=== PATIENT | male | born 1940 | race Caucasian/White ===

== ENCOUNTER 2018-08-31 19:41 | Emergency (ER) | payer MEDICARE, OTHER ==
[~2018-08-31] VITALS: Ht 172.7 cm; Wt 108.9 kg
--- OUTSIDE RECORDS SUMMARY | ~2018-08-31 | XMS | Clinical Summary ---
Demographics + + + | Address | [address] | | | [place] [address] | + + + | Home Phone | | + + + | Preferred Language | Unknown | + + + | Marital Status | Single | + + + | Orthodox Affiliation | Unknown | + + + | Race | Unknown | + + + | Ethnic Group | Unknown | + + + Author + + + | Author | [facility] | | | and [place] | + + + | Organization | [facility] | | | and [place] | + + + | Address | Unknown | + + + | Phone | Unavailable | + + + Support + + + + + | Name | Relationship | Address | Phone | + + + + + | Regan iGbbs | ECON | NA | | | | | [place] | | + + + + + | Malcolm Gibbs | ECON | [place] | | | | | [address] | | + + + + + Care Team Providers + +------+ + | Care Dairy Specialist Name | Role | Phone | + [...] | [employer] | MODA | [id number] | 05/23/19 | [phone] | | Medica | | MEDICAID HMO [...] Self | [birth year] | [address] | | | al/Fam | | 1941 | [phone] | [place] [address] | | | mateo | | | 5 ([place]) | | + +--------+ +--------+ + + Advance Directives Patient has advance care planning documents on file. For more information, please contact:[facility] [place] [address]
--- OUTSIDE RECORDS SUMMARY | ~2018-08-31 | XMS | Clinical Summary ---
Demographics + + + | Address | [address] | | | [place] [address] | + + + | Home Phone | | + + + | Preferred Language | Unknown | + + + | Marital Status | Single | + + + | Latter-Day Affiliation | Unknown | + + + | Race | Unknown | + + + | Ethnic Group | Unknown | + + + Author + + + | Author | [facility] | | | and [place] | + + + | Organization | [facility] | | | and [...] [place] | | | | | [address] | | + + + + + Care Team Providers + +------+ + | Care Youth Development Specialist Name | Role | Phone | [...] | [employer] | MODA | [id number] | 05/23/19 | [phone] | | Medica | | MEDICAID HMO [...] al/Fam | | 1941 | [phone] | [place] [address] | | | mateo | | | 5 ([place]) | | + +--------+ +--------+ + + Advance Directives Patient has advance care planning documents on file. For more information, please contact:[facility] [place] [address]
--- OUTSIDE RECORDS SUMMARY | ~2018-08-31 | XMS | Clinical Summary ---
Demographics + + + | Address | [address] | | | [place] [address] | + + + | Home Phone | | + + + | Preferred Language | Unknown | + + + | Marital Status | | + + + | Anabaptism Affiliation | Unknown | + + + | Race | Unknown | + + + | Ethnic Group | Unknown | + + + Author + + + | Author | [facility] [employer] | + + + | Organization | [facility] | + + + | Address | Unknown | + + + | Phone | Unavailable | + + + Support + + +---------+ + | Name | Relationship | Address | Phone | + + +---------+ + | Malcolm Gibbs | ECON | Unknown | | + + +---------+ + Care Team Providers + +------+ + | Care Motel Manager Name | Role | Phone | + [...] +------+-------+ + | MEDICARE | MEDICA | [id number] | | | [address] | | | RE | | | | [place] [phone] | | | IP-OP | | | | | + +--------+ +------+-------+ + | MEDICAID | [place] | [id number] | | | [address] | | | N | | | | [place] | | | [place] | | | | [address] | | | DESK DIRECTOR | | | | | + +--------+ [...] | | | | | | | [phone] | + +--------+ +--------+ + +
--- OUTSIDE RECORDS SUMMARY | ~2018-08-31 | XMS | Clinical Summary ---
Demographics + + + | Address | [address] | | | [place] [address] | + + + | Home Phone | | + + + | Preferred Language | Unknown | + + + | Marital Status | | + + + | Presybeterian Affiliation | Unknown | + + + | Race | Unknown | + + + | Ethnic Group | Unknown | + + + Author + + + | Author | [facility] | + + + | Organization | [facility] | + + + | Address | Unknown | + + + | Phone | Unavailable | + + + Support + + +---------+ + | Name | Relationship | Address | Phone | + + +---------+ + | Malcolm Gibbs | ECON | Unknown | | + + +---------+ + Care Team Providers + +------+ + | Care Tetryl Screen Operator Name | Role | Phone | [...] +------+-------+ + | MEDICARE | MEDICA | [id number] | | | [address] | | | RE | | | | [place] [phone] | | | IP-OP | | | | | + +--------+ +------+-------+ + | MEDICAID | [place] | [id number] | | | [address] | | | N | | | | [place] | | | [place] | | | | [phone] | | | SCREW MACHINE SET UP OPERATOR TOOL | | | | | + +--------+ [...] | | | | | | | [phone] | + +--------+ +--------+ + +
[~2018-08-31 19:41] MED LIST: ACETAMINOPHEN500 MG PO; ACTICLATE150 MG PO; ADVAIR 100-501 EACH INH; ALLOPURINOL300 MG PO; AMBIEN10 MG PO; ATORVASTATIN CA40 MG PO; BP MED; COUMADIN; COUMADIN PO; COUMADIN2 MG PO; COUMADIN3 MG PO; COUMADIN4 MG PO; DOXYCYCLINE HY100 MG PO; FLOMAX0.4 MG PO; FLUTICASONE PRO16 GM NS; GOUT MED; GUAIATUSSIN AC10 ML PO; HYDROCODON-ACE1 EA10 PO; INHAILER; KLOR-CON 1010 MEQ PO; LISINOPRIL10 MG PO; LISINOPRIL2.5 MG PO; LOPRESSOR50 MG PO; METOPROLOL TART25 MG PO; MILK OF MA400 MG/5 M PO; NITROSTAT0.4 MG SL; NORCO 10-325 T1 EACH PO; NORCO 5-325 TA1 EACH PO; ONCE DAILY1 EACH PO; PERCOCET 7.5-31 EACH PO; POLYETHYLENE GL17 GM PO; POTASSIUM CHLO10 ME1 PO; PROAIR HFA8.5 GM INH; SENOKOT8.6 MG PO; SYMBICORT 16010.2 GM INH; TAMSULOSIN HCL0.4 MG PO; TRIAMTERENE-HC1 EAC1 PO; TRIAMTERENE-HC1 EAC3 PO; ULTRAM50 MG PO; WARFARIN SODIU2.5 MG PO; ZOLPIDEM TARTRA10 MG PO
[2018-08-31] MEDS ORDERED: CEPHALEXIN500 MG PO (20:38)
== END 2018-08-31 20:53 | disposition home or self-care (01) ==
LOC: ED 19:41
DX: S80.11XA Contusion of right lower leg, initial encounter (principal); I10 Essential (primary) hypertension; J44.9 Chronic obstructive pulmonary disease, unspecified; I11.9 Hypertensive heart disease without heart failure; I48.91 Unspecified atrial fibrillation; E78.5 Hyperlipidemia, unspecified; N28.9 Disorder of kidney and ureter, unspecified; Z87.891 Personal history of nicotine dependence; Z95.5 Presence of coronary angioplasty implant and graft; Z90.49 Acquired absence of other specified parts of digestive tract; Z90.89 Acquired absence of other organs; Z79.899 Other long term (current) drug therapy; Z79.01 Long term (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; W10.9XXA Fall (on) (from) unspecified stairs and steps, initial encounter; Z23 Encounter for immunization
CPT/HCPCS: 90471; 90715; 99283

== ENCOUNTER 2018-09-03 10:52 | Inpatient (IN) | payer MEDICARE, OTHER ==
[~2018-09-03] VITALS: Ht 172.7 cm; Wt 104.3 kg
--- OUTSIDE RECORDS SUMMARY | ~2018-09-03 | XMS | Clinical Summary ---
Demographics + + + | Address | [address] | | | [place] [address] | + + + | Home Phone | | + + + | Preferred Language | Unknown | + + + | Marital Status | Single | + + + | Scientology Affiliation | Unknown | + + + | Race | Unknown | + + + | Ethnic Group | Unknown | + + + Author + + + | Author | [facility] | | | and [place] | + + + | Organization | [facility] | | | and [place] | + + + | Address | Unknown | + + + | Phone | Unavailable | + + + Support + + + + + | Name | Relationship | Address | Phone | + + + + + | Regan Gibbs | ECON | NA | | | | | [place] | | + + + + + | Malcolm Gibbs | ECON | [place] | | | | | [address] | | + + + + + Care Team Providers + +------+ + | Care Operations Examiner Name | Role | Phone | + +------+ + | Burton Alvarez | PP | | | MD | | | + +------+ + Allergies No Known Allergies Medications + + + +---------+------+------+-------+ | Medication | Sig | Dispensed | Refills | Star | End | Statu | | | | | | t | Date | s | | | | | | Date | | | + + + +---------+------+------+-------+ | lisinopril | Take 10 mg by mouth | | 0 | | | Activ | | (PRINIVIL, ZESTRIL) | Daily. | | | | | e | | 10 mg tablet | | | | | | | + + + +---------+------+------+-------+ | | Take 1 tablet by | | 0 | | | Activ | | HYDROcodone-acetamin | mouth every 6 hours | | | | | e | | ophen (NORCO) 5-325 | as needed. | | | | | | | mg per tablet | | | | | | | + + + +---------+------+------+-------+ | zolpidem (AMBIEN) | Take 10 mg by mouth | | 0 | | | Activ | | 10 mg tablet | nightly as needed. | | | | | e | + + + +---------+------+------+-------+ | warfarin | Take 4 mg by mouth | | 0 | | | Activ | | (COUMADIN) 4 MG | Daily. | | | | | e | | tablet | | | | | | | + + + +---------+------+------+-------+ | metoprolol | Take 50 mg by mouth | | 0 | | | Activ | | succinate | 2 times daily. | | | | | e | | (TOPROL-XL) 50 mg 24 | | | | | | | | hr tablet | | | | | | | + + + +---------+------+------+-------+ | allopurinol | Take 300 mg by mouth | | 0 | | | Activ | | (ZYLOPRIM) 300 mg | Daily. | | | | | e | | tablet | | | | | | | + + + +---------+------+------+-------+ Active Problems + + + | Problem | Noted Date | + + + | Hypertension | | + + + | Arthritis | | + + + | Heart attack | | + + + | History of angina | | + + + | Arrhythmia | | + + + Family History + + +------+ + | Medical History | Relation | Name | Comments | + + +------+ + | Arthritis | Brother | | | + + +------+ + | Cancer | Brother | | | + + +------+ + | Arthritis | Father | | | + + +------+ + | Cancer | Father | | | + + +------+ + | Heart disease | Father | | | + + +------+ + | Hypertension | Father | | | + + +------+ + | Arthritis | Mother | | | + + +------+ + | Kidney disease | Mother | | | + + +------+ + | Migraines | Mother | | | + + +------+ + | Seizures | Mother | | | + + +------+ + | Arthritis | Sister | | | + + +------+ + + +------+--------+ + | Relation | Name | Status | Comments | + +------+--------+ + | Brother | | | | + +------+--------+ + | Father | | | | + +------+--------+ + | Mother | | | | + +------+--------+ + | Sister | | | | + +------+--------+ + Social History + +-------+ +--------+------+ | Tobacco Use | Types | Packs/Day | Years | Date | | | | | Used | | + +-------+ +--------+------+ | Never Smoker | | | | | + +-------+ +--------+------+ + +------+---+---+ | Smokeless Tobacco: | Chew | | | | Current User | | | | + +------+---+---+ + + +---------+ + | Alcohol Use | Drinks/We | oz/Week | Comments | | | ek | | | + + +---------+ + | Yes | | | Rarely | + + +---------+ + + + + | Sex Assigned at | Date Recorded | | | | + + + | Not on file | | + + + + + + + | Job Start Date | Occupation | Industry | + + + + | Not on file | Not on file | Not on file | + + + + + + + + | Travel History | Travel Start | Travel End | + + + + + + | No recent travel history available. | + + Last Filed Vital Signs + + + + | Vital Sign | Reading | Time Taken | + + + + | Blood Pressure | 131/75 | 05/11/2013 1029 PST | + + + + | Pulse | 70 | 05/11/2013 1029 PST | + + + + | Temperature | - | - | + + + + | Respiratory Rate | 18 | 05/11/20139 PST | + + + + | Oxygen Saturation | - | - | + + + + | Inhaled Oxygen | - | - | | Concentration | | | + + + + | Weight | 100.2 kg (221 lb) | 05/11/20131028 PST | + + + + | Height | 174 cm (5' 8.5") | 05/11/20131028 PST | + + + + | Body Mass Index | 33.11 | 05/11/20139 PST | + + + + Plan of Treatment + + + + + | Health Maintenance | Due Date | Last Done | Comments | + + + + + | Vaccine: | | | | | Dtap/Tdap/Td (1 - | 9 | | | | Tdap) | | | | + + + + + | Vaccine: Zoster (1 | | | | | of 2) | 0 | | | + + + + + | Vaccine: | | | | | Pneumococcal 65+ | 5 | | | | Low/Medium Risk (1 | | | | | of 2 - PCV13) | | | | + + + + + | Vaccine: Influenza | | | | | (Season Ended) | 9 | | | + + + + + Results Not on filefrom Last 3 Months Insurance + +--------+ +--------+ +---------+--------+ | Payer | Benefi | Subscriber | Effect | Phone | Address | Type | | | t Plan | ID | abby | | | | | | / | | Dates | | | | | | Group | | | | | | + +--------+ +--------+ +---------+--------+ | [employer]AN | MODA | [id number] | 05/23/19 | [phone] | | Medica | | MEDICAID HMO | HEALTH | | 13-Pre | 1 | | id | | | [place] | | sent | | | | | [place] | | | | | | + +--------+ +--------+ +---------+--------+ + +--------+ +--------+ + + | Guarantor Name | Accoun | Relation to | Date | Phone | Billing Address | | | t Type | Patient | of | | | | | | | | | | + +--------+ +--------+ + + | Tiffany Gibbs | Person | Self [birth year] | [address] | | | al/Fam | | 1941 | [phone] | [place] [address] | | | mateo | | | 5 ([place]) | | + +--------+ +--------+ + + Advance Directives Patient has advance care planning documents on file. For more information, please contact:[facility] and [facility] [place] [address]
--- OUTSIDE RECORDS SUMMARY | ~2018-09-03 | XMS | Clinical Summary ---
Demographics + + + | Address | [address] | | | [place] [address] | + + + | Home Phone | | + + + | Preferred Language | Unknown | + + + | Marital Status | Single | + + + | Scientologist Affiliation | Unknown | + + + | Race | Unknown | + + + | Ethnic Group | Unknown | + + + Author + + + | Author | [facility] | | | and [place] | + + + | Organization | [facility] | | | and [...] [place] | | | | | [address] | | + + + + + Care Team Providers + +------+ + | Care Classified Advertising Supervisor Name | Role | Phone | + [...] | [employer] | MODA | [id number] | 05/23/19 | [phone] | | Medica | | MEDICAID HMO [...] Self | [birth year] | [address] | | | al/Fam | | 1941 | [phone] | [place] [address] | | | mateo | | | 5 ([place]) | | + +--------+ +--------+ + + Advance Directives Patient has advance care planning documents on file. For more information, please contact:[facility] and [facility] [place] [address]
--- OUTSIDE RECORDS SUMMARY | ~2018-09-03 | XMS | Clinical Summary ---
Demographics + + + | Address | [address] | | | [place] [address] | + + + | Home Phone | | + + + | Preferred Language | Unknown | + + + | Marital Status | | + + + | Zoroastrianism Affiliation | Unknown | + + + | Race | Unknown | + + + | Ethnic Group | Unknown | + + + Author + + + | Author | [facility] | + + + | Organization | [facility] | + + + | Address | Unknown | + + + | Phone | Unavailable | + + + Support + + +---------+ + | Name | Relationship | Address | Phone | + + +---------+ + | Malcolm Gibbs | ECON | Unknown | | + + +---------+ + Care Team Providers + +------+ + | Care Stock Patcher Name | Role | Phone | + [...] +------+-------+ + | MEDICARE | MEDICA | [id number] | | | [address] | | | RE | | | | [place] [phone] | | | IP-OP | | | | | + +--------+ +------+-------+ + | MEDICAID | [place] | [id number] | | | [address] | | | N | | | | [place] | | | [place] | | | | [address] | | | GRADER PATROL | | | | | + +--------+ [...] | | | | | | | [address] | + +--------+ +--------+ + +
--- OUTSIDE RECORDS SUMMARY | ~2018-09-03 | XMS | Clinical Summary ---
Demographics + + + | Address | [address] | | | [place] [address] | + + + | Home Phone | | + + + | Preferred Language | Unknown | + + + | Marital Status | | + + + | Pentecostalism Affiliation | Unknown | + + + | Race | Unknown | + + + | Ethnic Group | Unknown | + + + Author + + + | Author | [employer] | + + + | Organization | [facility] | + + + | Address | Unknown | + + + | Phone | Unavailable | + + + Support + + +---------+ + | Name | Relationship | Address | Phone | + + +---------+ + | Malcolm Gibbs | ECON | Unknown | | + + +---------+ + Care Team Providers + +------+ + | Care Psychometrician Name | Role | Phone | + [...] +------+-------+ + | MEDICARE | MEDICA | [id number] | | | [address] | | | RE | | | | [place] [phone] | | | IP-OP | | | | | + +--------+ +------+-------+ + | MEDICAID | [place] | [id number] | | | [address] | | | N | | | | [place] | | | [place] | | | | [address] | | | [employer] | | | | | + +--------+ [...] | | | | | | | [address] | + +--------+ +--------+ + +
--- OUTSIDE RECORDS SUMMARY | ~2018-09-03 | XMS | Clinical Summary ---
Demographics + + + | Address | [address] | | | [place] [address] | + + + | Home Phone [...] + + + | Author | [facility] | | | and [place] | + + + | Organization | [facility] | | [...] [place] | | | | | [address] | | + + + + + Care Team Providers + +------+ + | Care Air Cargo Agent Name | Role | Phone | + [...] | [employer] | MODA | [id number] | 05/23/19 | [phone] | | Medica | | MEDICAID HMO [...] Self | [birth year] | [address] | | | al/Fam | | 1941 | [phone] | [place] [address] | | | mateo | | | 5 ([place]) | | + +--------+ +--------+ + + Advance Directives Patient has advance care planning documents on file. For more information, please contact:[facility] and [facility] [place] [address]
--- OUTSIDE RECORDS SUMMARY | ~2018-09-03 | XMS | Clinical Summary ---
Demographics + + + | Address | [address] | | | [place] [address] | + + + | Home Phone | | + + + | Preferred Language | Unknown | + + + | Marital Status | | + + + | Catholic Affiliation | Unknown | + + + | Race | Unknown | + + + | Ethnic Group | Unknown | + + + Author + + + | Author | [employer] [employer] | + + + | Organization | [facility] | + + + | Address | Unknown | + + + | Phone | Unavailable | + + + Support + + +---------+ + | Name | Relationship | Address | Phone | + + +---------+ + | Malcolm Gibbs | ECON | Unknown | | + + +---------+ + Care Team Providers + +------+ + | Care Clothing Manager Name | Role | Phone | [...] +------+-------+ + | MEDICARE | MEDICA | [id number] | | | [address] | | | RE | | | | [place] [phone] | | | IP-OP | | | | | + +--------+ +------+-------+ + | MEDICAID | [place] | [id number] | | | [address] | | | N | | | | [place] | | | [place] | | | | [phone] | | | SUPERVISOR CONTINUOUS W[employer] | | | | | + +--------+ [...] | | | | | | | [address] | + +--------+ +--------+ + +
[~2018-09-03 10:52] MED LIST changes: +CEPHALEXIN500 MG PO
--- OUTSIDE RECORDS SUMMARY | 2018-09-03 10:54 | XMS ---
PreManage Notification: KORIN DESHPANDE Security Recordist Chief Events No recent Security Events currently on file CRITERIA MET - [facility] - 2 Visits in 30 Days CARE PROVIDERS Burton Alvarez MD PHONE: Unknown Other Current PHONE: Unknown Joce has no Care Guidelines for this patient. [facility] VISIT COUNT (12 MO.) [address] [place] [address] TOTAL 2 NOTE: Visits indicate total known visits. ED/UCC VISIT TRACKING (12 MO.) 09/03/2018 10:52 [facility] [place] TYPE: Emergency COMPLAINT: - LEG PAIN/SWELLING, POSS INFECTION 08/31/2018 19:42 [facility] [place] TYPE: Emergency COMPLAINT: - FALL INPATIENT VISIT TRACKING (12 MO.) No inpatient visits to display in this time frame [email or web address]
--- NOTE | 2018-09-03 16:00 | NUR ---
PT ARRIVED TO FLOOR VIA STRETCHER. REPORTS PAIN 10/10 IN RIGHT LOWER LEG. MORPHINE PO ADMINISTERED. ORIENTED TO ROOM. PT IS AAO. CALL LIGHT IN REACH. DINNER ORDERED. WATER PROVIDED. ICE APPLIEDTO RLE. RLE ELEVATED ON PILLOW.
--- NOTE | 2018-09-03 19:06 | NUR ---
PT REPORTING PAIN 8/10 IN RLE BURNING. 2MG IV MORPHINE ADMINSITERED.
--- NOTE | 2018-09-03 19:30 | NUR ---
RECIEVED BEDSIDE REPORT FROM DAYA FRIEDMAN, PATIENT RESTING AWAKE IN BED. CPOX, WNL. PATIENT STATES "PAIN IS DOING ALRIGHT RIGHT NOW", STATING PAIN IS A "7/10". CALL LIGHT WITHIN REACH. WHITE BOARD UPDATED. NO MORE NEEDS AT THIS TIME.
--- NOTE | 2018-09-03 21:30 | NUR ---
ASSESSMENT COMPLETE, REFER TO ASSESSMENT. PATIENT REPORTS "8/10" PAIN IN RLE, PATIENT REPORTS RLE HEMATOMA FEELS LIKE "FIRE" WITH MOVEMENT, PRN PAIN MEDICATION ADMINISTERED PER MAR ORDER. PATIENT DENIES CHEST PAIN, SHORTNESS OF BREATH OR DIFFICULTY BREATHING. PATIENT EXHIBITED SLIGHT PURSED LIP BREATHING, PT IS ABLE TO TALK IN CLEAR AND CONCISE SENTENCES, NO SIGNS OF RESPIRATORY DISTRESS. IV ASSESSED, WNL. HEMATOMA ON RLE APPEARS, RED AND SWOLLEN, NO SIGNS OF DRAINAGE, WARM TO TOUCH, CAPILLARY REFILL LESS THAN 2 SECONDS, ICE PACK IN PLACE PER ORDER. IV ASSESSED, WNL. RLE ELEVATED ON PILLOW. CALL LIGHT WITHIN REACH. NO MORE NEEDS AT THIS TIME.
--- NOTE | 2018-09-03 22:32 | NUR ---
V/S AND I&O DONE AND CHARTED.
--- NOTE | 2018-09-03 23:38 | NUR ---
MADE HOT PACK WITH 2 PILLOW CASES FOR R LOWER LEG PER PRIMARY RN.
--- NOTE | 2018-09-03 23:52 | NUR ---
PAPER SALES MANAGER BLADDER SCAN PATIENT PATIENT REPORTS NOT HAVING SENSATION TO VOID AND HAS NOT PRODUCED URINE THIS SHIFT. BLADDER SCAN SHOWED 425 ML OF URINE. THIS RN ELEVATED HEAD OF BED AND PROVIDED PATIENT EDUCATION ABOUT CONCERN OF PATIENT NOT PRODUCING URINE THIS SHIFT. PATIENT WOULD LIKE SOME TIME TO ATTEMPT TO URINATE. CALL LIGHT WITHIN REACH. NO MORE NEEDS AT THIS TIME. URINAL AT BEDSIDE.
--- NOTE | 2018-09-03 23:54 | NUR ---
DID SCAN THE BLADDER, SHOWED 425 ML.
--- NOTE | 2018-09-04 00:38 | NUR ---
PATIENT WAS ABLE TO VOID. PATIENT RATES PAIN AT A 3/10. PATIENT GIVEN PRN PAIN MEDICATION PER ORDER. PATIENT REMAINS RESTING IN BED. PATIENTD WATER REFILLED. PATIENT DENIES ANY FURTHER NEEDS AT THIS TIME. CALL LIGHT IN REACH.
--- NOTE | 2018-09-04 00:50 | NUR ---
PATIENT WAS ABLE TO VOID. PATIENT RATES PAIN AT A 7/10. PATIENT GIVEN PRN PAIN MEDICATION PER ORDER. PATIENT REMAINS RESTING IN BED. PATIENTD WATER REFILLED. PATIENT DENIES ANY FURTHER NEEDS AT THIS TIME. CALL LIGHT IN REACH.
--- NOTE | 2018-09-04 02:50 | NUR ---
ASSESSMENT COMPLETE, REFER TO ASSESSMENT. PATIENT REPORTS "8/10" "BURNING" AND "THROBBING" PAIN IN RLE, PRN PAIN MEDICATION ADMINISTERED PER MAR ORDER. CAPILLARY REFILL LESS THAN 2 SECONDS. EXTREMITIES WARM TO TOUCH. NO NEW DRAINAGE NOTED ON HEMATOMA. ICE APPLIED PER ORDER. RLE ELEVATED ON PILLOW. PATIENT DENIES SHORTNESS OF BREATH, DIFFICULTY BREATHING, OR CHEST PAIN. THIS RN PROVIDED PATIENT WITH URINAL AND ENCOURAGED PATIENT TO USE URINAL IF PATIENT HAS THE URGE TO URINATE. NO SIGNS OF DISTRESS, CPOX WNL. PATIENT ABLE TO TALK IN CLEAR AND CONCISE SENTENCES. CALL LIGHT WITHIN REACH. NO MORE NEEDS AT THIS TIME.
--- NOTE | 2018-09-04 03:45 | NUR ---
PRN PAIN MEDICATION ADMINISTERED PER MAR ORDER FOR REPORTED "8/10" PAIN IN RLE. PROVIDED PATIENT WITH URINAL AND ENCOURAGED PATIENT TO USE URINAL IF PATIENT HAS URGE TO USE URINAL.
--- NOTE | 2018-09-04 04:57 | NUR ---
ROUNDED ON PATIENT TO EMPTY PATIENT'S URINAL. 60ML OF CONCENTRATED URINE EMPTIED FROM URINAL. IT WAS NOTED THAT PATIENT HAD CHEWING TOBACCO IN GOWN POCKET AND IN MOUTH, EDUCATION PROVIDED TO PATIENT ABOUT HOSPITAL POLICY ABOUT TOBACCO ON HOSPITAL GROUNDS, PATIENT PROVIDED PERMISSION TO PLACE CAN OF CHEWING TOBACCO AND CHEW FROM MOUTH IN GARBAGE. CALL LIGHT WITHIN REACH. NO MORE NEEDS AT THIS TIME.
--- NOTE | 2018-09-04 06:44 | NUR ---
NOTIFED DR. JORDAN OF PATIENT'S LOW URINE OUTPUT. NO NEW ORDERS.
--- NOTE | 2018-09-04 07:13 | NUR ---
RECIEVED BEDSIDE REPORT FROM IDALIA FREGOSO. PT HAS RIGHT LEG ELEVATED ON PILLOW WITH ICE PACK TO LATERAL LOWER LEG. CALL BUTTON IN REACH.
--- NOTE | 2018-09-04 07:51 | NUR ---
PATIENT IN BED RESTING. WARM WASHCLOTH GIVEN. CALL LIGHT IN REACH. NO FURTHER NEEDS AT THIS TIME.
--- NOTE | 2018-09-04 07:58 | NUR ---
PT C/O 8/10 PAIN TO HIS RIGHT LOWER LEG. GAVE MORPHINE SULFATE 15 MG PO PRN. PT SITTING UPRIGHT IN BED, EATING BREAKFAST AT THIS TIME.
--- NOTE | 2018-09-04 08:15 | NUR ---
PATIENT ASLEEP. SPOKE WITH EMERSON (FAMILY MEMBER) WHO STATES PATIENT LIVES ALONE AND USUALLY IS ABLE TO TAKE CARE OF HIMSELF. HE LIVES IN APARTMENT AT [facility], STILL DRIVES. SHE STATES IF HE NEEDS HELP AFTER DISCHARGE THE FAMILY WILL BE ABLE TO DO THIS, OR HE CAN COME AND STAY WITH ONE OF THEM IF NEEDED. QUESTIONS ANSWERED. WILL SEE PATIENT LATER WHEN AWAKE.
--- NOTE | 2018-09-04 08:26 | NUR ---
PATIENT HAD EMESIS, RN NOTIFIED. SHEETS CHANGED. CALL LIGHT IN REACH. NO FURTHER NEEDS AT THIS TIME.
--- NOTE | 2018-09-04 08:30 | NUR ---
PT ATE A SMALL AMOUNT OF BREAKFAST THEN HAS AN EPISODE OF EMESIS. GAVE ZOFRAN 4 MG IV PRN.
--- NOTE | 2018-09-04 09:19 | NUR ---
PATIENT IN BED RESTING WITH EYES CLOSED. FAMILY IN ROOM. CALL LIGHT IN REACH. NO FURTHER NEEDS AT THIS TIME.
--- NOTE | 2018-09-04 10:09 | NUR ---
PATIENT HAS NO VOID. PATIENT TRIED TO VOID BUT COULDN'T, RN NOTIFIED. WILL CHECK BACK IN IN 30 MINS.
--- NOTE | 2018-09-04 10:23 | NUR ---
PT C/O RLE HAVING INCREASED PAIN, 01/30, GAVE MORPHINE 4 MG IV PRN.
--- NOTE | 2018-09-04 10:51 | NUR ---
NOTIFIED DR. JORDAN THAT PT HAD NAUSEA AND EMESIS THIS AM AFTER RECIEVING PO MORPHINE, AND ALSO LATER THIS MORNING, AFTER HAVING IV MORPHINE. DR. JORDAN STATED THAT SHE WOULD PLACE ORDERS. ALSO NOTIFIED DR. JORDAN THAT PT HAS NOT YET VOIDED URINE THUS FAR THIS SHIFT, AND BLADDER SCAN SHOWED 310. NO NEW ORDERS FOR THIS AT THIS TIME.
[2018-09-04] MEDS ORDERED: LEVOTHYROXINE50 MCG PO (11:05)
[2018-09-04] MEDS ORDERED: ALLOPURINOL300 MG PO (11:05)
[2018-09-04] MEDS ORDERED: SPIRIVA18 MCG INH (11:06)
[2018-09-04] MEDS ORDERED: ADVAIR 250-501 EACH INH (11:06)
[2018-09-04] MEDS ORDERED: FUROSEMIDE20 MG PO (11:07)
[2018-09-04] MEDS ORDERED: VENTOLIN HFA18 GM INH (11:07)
--- NOTE | 2018-09-04 11:44 | NUR ---
GAVE PT OXYCODONE 5 MG PO PRN AFTER HE ATE CRACKERS. PT HAD EMESIS OF 400 ML APROXIMATELY 2 MINUTES AFTER RECIEVING OXYCODONE. HAS IVF INFUSING AT ORDERED NOW.
--- NOTE | 2018-09-04 11:47 | NUR ---
NOTIFIED DR. JORDAN THAT PT WAS GIVEN OXYCODONE 5 MG PO PRN, AND THAT PT HAD 400 ML EMESIS FOLLOWING THIS. RECIEVED VORB TO GIVE ONE TIME DOSE OF ZOFRAN 4 MG IV IT IS TOO SOON TO GIVE ORDERED PRN ZOFRAN.
--- NOTE | 2018-09-04 14:12 | NUR ---
pt had emesis. gave 4mg i.v. zofran at this time.
--- NOTE | 2018-09-04 14:24 | NUR ---
PT CONTINUES TO VOMIT, NEW ORDERS FROM .
--- NOTE | 2018-09-04 14:37 | NUR ---
PT STOOD AT EDGE OF BED, VOIDED SMALL AMOUNT OF DARK MARTINEZ URINE IN URINAL. REQUIRED 2 PERSON ASSIST WITH FWW. PT THEN TRANSFERED FROM BED TO TOILET, IS SITTING UP ON TOILET ATTEMPTING TO VOID MORE URINE.
--- NOTE | 2018-09-04 15:13 | NUR ---
PATIENT UP TO BATHROOM AND BACK TO BED, 2PA FWW. CALL LIGHT IN REACH. NO FURTHER NEEDS AT THIS TIME.
--- NOTE | 2018-09-04 15:32 | NUR ---
SPOKE WITH PATIENT AND FAMILY IN ROOM. SON HOA IN ROOM. PATIENT STATES HE DOES LIVE AT [facility]. PATIENT FALLS TO SLEEP DURING CONVERSATION. SON STATES THE FAMILY WILL BE TAKING HIM HOME FOR A FEW DAYS UNTIL HE IS READY TO RETURN TO HIS OWN APARTMENT. HIS ONLY CONCERN IS THAT PATIENT BE ABLE TO GET AROUND WITH A WALKER TO GO TO THE BATHROOM, ETC. DISCUSSED THAT WILL CAN GET PT TO SEE HIM AND MAKE SURE HE IS UP AND ABLE TO MOVE. HE STATES PATIENT DOES NOT HAVE A WALKER. WILL DISCUSS WITH PHYSCIAN FOR POSSIBLE WALKER RX. QUESTIONS ANSWERED. WILL CONTINUE TO FOLLOW.
--- NOTE | 2018-09-04 17:30 | NUR ---
PT SITTING UP IN BED. GAVE OXYCODONE 5 MG PO PRN FOR C/O 810 RLE PAIN.
--- NOTE | 2018-09-04 18:40 | NUR ---
Medications reconciled using pharmacy records and patient family interview
--- NOTE | 2018-09-04 18:43 | NUR ---
PATIENT IN BED RESTING WITH EYES CLOSED. NO VOID, RN NOTIFIED. FRESH WATER GIVEN. CALL LIGHT IN REACH. NO FURTHER NEEDS AT THIS TIME.
--- NOTE | 2018-09-04 18:51 | NUR ---
PT REPORTED 8/10 RLE PAIN, GAVE OXYCODONE 5 MG PO PRN.
--- NOTE | 2018-09-04 19:34 | NUR ---
RECIEVED BEDSIDE REPORT FROM EVITA FRIEDMAN. PATIENT LAYING AWAKE IN BED. IV FLUIDS INFUSING PER MAR ORDER. CPOX, WNL. PATIENT REPORTS "8-01/30" PAIN IN RLE. RLE SHOWS NO NEW DRAINAGE AND ELEVATED ON PILLOW. CALL LIGHT WITHIN REACH. WHITE BOARD UPDATED. NO MORE NEEDS AT THIS TIME.
--- NOTE | 2018-09-04 20:30 | NUR ---
ASSESSMENT COMPLETE, REFER TO ASSESSMENT. MEDICATIONS ADMINISTERED PER MAR ORDER. PATIENT REPORTS "8/10" "BURNING" PAIN IN RLE, SCHEDULED PAIN MEDICATION ADMINISTERED PER MAR ORDER. BLE WARM TO TOUCH, THREADY PULSES NOTED IN RLE, NO DRAINAGE NOTED ON HEMATOMA, CAPILLARY REFILL LESS THAN [address] TO HEMATOMA PER ORDER. PATIENT DENIES NAUSEA, HYPOACTIVE BOWEL TONES PRESENT. PATIENT DENIES CHEST PAIN, SHORTNESS OF BREATH OR DIFFICULTY BREATHING. NO SIGNS OF DISTRESS. CPOX ASSESSED, HR RANGED FROM 100-110 BPM. WAITING FOR PATIENT TO VOID, URINAL PROVIDED TO PATIENT. CALL LIGHT WITHIN REACH. NO MORE NEEDS AT THIS TIME. IV FLUIDS INFUSING PER MAR ORDER.
--- NOTE | 2018-09-04 22:38 | NUR ---
SCANNED THE BLADDER PER PRIMARY SHOWED 348 ML. 2 MACHINE CONTAINER WASHER HELPED PATIENT USE THE BEDSIDE COMMODE. CALL LIGHT WITHIN REACH. INSTRUCTED TO CALL WHEN DONE.
--- NOTE | 2018-09-04 23:11 | NUR ---
PATIENT VOIDED 300ML. PATIENT IS BACK IN BED. REFILLED WATER. CALL LIGHT WITHIN REACH.
--- NOTE | 2018-09-05 00:15 | NUR ---
PATIENT REPORTS "05/01" PAIN IN RLE. PRN PAIN MEDICATION ADMINISTERED PER JUL ORDER. ICE PACK APPLIED PER ORDER. NO MORE NEEDS AT THIS TIME.
--- NOTE | 2018-09-05 00:59 | NUR ---
ROUNDED ON PATIENT TO REPOSITION RLE. REPOSITONED PILLOWS UNDERNEATH LEG AND PATIENT REPORTS PAIN IS A "3/10" AND REPORTS "ITS FEELIN PRETTY GOOD RIGHT NOW". CALL LIGHT WITHIN REACH. NO MORE NEEDS AT THIS TIME.
--- NOTE | 2018-09-05 02:10 | NUR ---
ROUNDED ON PATIENT RESTING IN BED WITH EYES CLOSED, RESPIRATORY RATE IS EVEN AND UNLABORED. CPOX,WNL. CALL LIGHT WITHIN REACH. NO SIGNS OF TENSING OR GRIMACING.
--- NOTE | 2018-09-05 04:14 | NUR ---
ROUNDED ON PATIENT RESTING IN BED WITH EYES CLOSED, RESPIRATORY RATE IS EVEN AND UNLABORED. CPOX, WNL. NO SIGNS OF TENSING OR GRIMACING. CALL LIGHT WITHIN REACH.
--- NOTE | 2018-09-05 04:30 | NUR ---
ASSESSMENT COMPLETE, REFER TO ASSESSMENT. PATIENT REPORTS "6/10" PAIN IN RLE, STATES "MY PAIN IS DOING PRETTY GOOD". RLE ELEVATED ON PILLOWS. WARM PACK APPLIED PER ORDER. BLE WARM TO TOUCH, CAPILLARY REFILL LESS THAN 2 SECONDS. PATIENT DENIES HAVING DIZZINESS OR LIGHTHEADEDNESS. PATIENT DENIES NUMBNESS OR TINGLING IN EXTREMITIES. NO SIGN OF DRAINAGE ON RIGHT TONY. PATIENT DENIES HAVING SHORTNESS OF BREATH, DIFFICULTY BREATHING, OR CHEST PAIN. CPOX, WNL. CALL LIGHT WITHIN REACH. NO MORE NEEDS AT THIS TIME.
--- NOTE | 2018-09-05 07:00 | NUR ---
NOTIFIED DR. CUELLAR OF PATIENT'S LOW URINE OUTPUT AND LOW BLOOD PRESSURE. NEW ORDERS RECIEVED, VERIFIED ORDERS VIA READBACK METHOD.
--- NOTE | 2018-09-05 07:30 | NUR ---
RECIEVED BEDSIDE REPORT FROM IDALIA FREGOSO. PT IN BED, AROUSED TO VERBAL STIMULI. HAS RIGHT FOOT ELEVATED ON PILLOW. PERSONAL SUPPLIES AND CALL LIGHT IN REACH.
--- NOTE | 2018-09-05 10:02 | NUR ---
CERAMIC RESEARCH ENGINEER IN WITH PT DRAWING BLOOD FOR ORDERED LABS. XRAY TECHNICIANS IN [place] AT DOOR, WAITING TO DO CXR.
--- NOTE | 2018-09-05 10:54 | NUR ---
PATTIENT IN BED, RN IN ROOM. CALL LIGHT IN REACH. NO FURTHER NEEDS AT THIS TIME.
--- NOTE | 2018-09-05 11:07 | NUR ---
NOTIFIED DR. CUELLAR THAT PT HAD NOT VOIDED URINE SINCE BEGINING OF SHIFT, AND THAT BLADDER SCAN SHOWED 129 ML.
--- NOTE | 2018-09-05 11:31 | NUR ---
PT UP TO BEDSIDE COMMODE, ATTEMPTED TO VOID URINE, SMALL DRIBBLE OF URINE OUT. PT THEN TRANSFERED TO W/C, LEFT FLOOR WITH IMAGING TECHNICIANS FOR CT.
--- NOTE | 2018-09-05 12:06 | NUR ---
PT SIGNED CONSENT FORM WITH THIS RN WITNESS.
--- NOTE | 2018-09-05 14:45 | NUR ---
PATIETN IN BED, SON IN ROOM. CALL LIGHT IN REACH. NO FURTHER NEEDS AT THIS TIME.
--- NOTE | 2018-09-05 14:54 | NUR ---
NOTIFIED DR. CUELLAR THAT PT STILL HAS NOT VOIDED URINE, AND THAT BLADDER SCAN SHOWED [address] CUELLAR THAT PT AGREED TO GET UP TO BEDSIDE COMMODE "IN A LITTLE WHILE" TO ATTEMPT TO VOID.
--- NOTE | 2018-09-05 14:55 | NUR ---
PT DROWSY, AROUSED TO VERBAL STIMULI. RATED PAIN TO RLE 7/10. GAVE SCHEDULED TYLENOL. PEDAL PULSE TO RLE REMAINS FAINT/THREADY, BILATERAL FEET COOL, SENSATION INTACT, PT ABLE TO MOVE/WIGGLE TOES. AREA THAT WAS A FLUID FILLED BLISTER AT BACK OF RIGHT CALF CAME OPEN THIS AM, MACERATED SKIN/SKIN TEAR LARGE, SMALL AMOUNT OF BLOODY DRAINAGE CONTINUES TO DRAIN FROM THIS SITE. DR. CUELLAR AND DR. DICKSON AWARE OF THIS AREA.
--- NOTE | 2018-09-05 15:21 | NUR ---
PLACED 16 FR MARSHALL CATHETER WITH URINE METER USING STERILE TECHNIQUE. 225 ML IMEDIATELY CAME OUT INTO URINE METER COLLECTION CHAMBER. DR. CUELLAR NOTIFIED THAT CATHETER WAS PLACE, AND 225 ML OUT.
--- NOTE | 2018-09-05 16:19 | NUR ---
EMPTIED PT'S CATHETER COLLECTION CHAMBER, 325 ML OUT. URINE DARK MARTINEZ.
--- NOTE | 2018-09-05 16:24 | NUR ---
PT'S RLE REMAINS SWOLLEN, SMALL AMOUNTS OF BLOODY DRAINAGE FROM MACERATED/SKIN TEAR AREA TO BACK OF CALF THAT OPENED THIS AM. AREA HAD BEEN A LARGE VERY SOFT FLUID FILLED BLISTER. BLISTER/SWOLLEN AREAS PRESENT TO FRONT OF RLE WELL, NOT YET OPEN. ALTERNATED WARM AND COOL PACKS TO RLE THIS SHIFT. PEDAL PULSE TO RLE REMAINS FAINT/THREADY. BILATERAL FEET COOL, PT HAS INTACT SENSATION, ABLE TO WIGGLE TOES. TRANSFERED WITH 2 PERSON ASSIST WITH FWW TO BEDSIDE COMMODE AND W/C, BUT IN BED WITH RLE ELEVATED MOST OF SHIFT. PT HAD CT OF CHEST AND RIGHT KNEE TODAY. INR WAS 4.0, PT RECIEVED VITAMIN K IV X 2 DOSES FOR A TOTAL OF [address] DICKSON SAW PT THIS SHIFT. CONSENT FOR PROCEDURE AND ANESTHESIA SIGNED, ON CHART. PT HAD NO URINE OUTPUT THIS AM, AND INTO AFTERNOON, MARSHALL CATHETER PLACED AT APROXIMATELY 1515, AND PT HAS HAD A TOTAL OF 325 ML DARK MARTINEZ URINE OUT THUS FAR. BP LOW THIS SHIFT, BP MEDICATIONS HELD, PT RECIEVED FLUID BOLUSES, AND IS NOW RECIEVING LR AT 125 ML/HR CONTINUOUS. IV ROCEPHIN STARTED THIS AM.
--- NOTE | 2018-09-05 16:36 | NUR ---
CALLED DR. DICKSON TO TERRY IF PT IS TO BE NPO AT MIDNIGHT. RECIEVED TORB: PT TO BE NPO AT MIDNIGHT, BUT MAY TAKE AM MEDICATIONS WITH SIPS.
--- NOTE | 2018-09-05 19:52 | NUR ---
RECEIVED REPORT FROM DAY SHIFT RN. PATIENT IS RESTING IN BED WATCHING TV. PATIENT IS NOTED TO HAVE LOWER URINE OUTPUT AND LOW BP. EVITA RN PLACED CALL TO DR CUELLAR. DR CUELLAR TO COME SEE PATIENT.
--- NOTE | 2018-09-05 20:15 | NUR ---
PATIENT ASSESMENT COMPLETED. PATIENT RATES PAIN AT A 4/10. PATIENT DENIES THE NEED FOR PAIN MEDICATION AT THIS TIME. PATIENT DENIES ANY NEEDS. CALL LIGHT IN REACH.
--- NOTE | 2018-09-05 20:35 | NUR ---
PATIENTS EVENING MEDICATIONS GIVEN PER ORDER. DR CUELLAR IN THE ROOM TO EVALUATE PATIENT. NO NEW ORDERS AT THIS TIME. PATIENTS VITALS TAKEN AND RECORDED BY AIRPLANE PATROLLER. PATIENTS BP IS NOW WNL. PATIENTS EVENING MEDICATIONS GIVEN PER ORDER. IV IN LEFT AC REDRESSED. PATIENTS RIGHT LEG ELEVATED ON PILLOW AND ICE PACK APPLIED. PATIENT DENIES ANY FURTHER NEEDS CALL LIGHT IN REACH.
--- NOTE | 2018-09-05 21:00 | NUR ---
PATIENTS NICOTINE PATCH REMOVED PER ORDER. LAB IN ROM. ASSISTED LAB WITH BLOOD DRAW. PATIENT DENIES ANY NEEDS. CALL LIGHT IN REACH.
--- NOTE | 2018-09-05 22:21 | NUR ---
MARSHALL EMPTIED AND OUPUT RECORDED. PATIENT IS RESTING IN BED WITH EYES CLOSED, RR 17. CALL LIGHT IN REACH.
--- NOTE | 2018-09-05 23:30 | NUR ---
PATIENT IS RESTING IN BED WITH EYES CLOSED, RR 17. CALL LIGHT IN REACH.
--- NOTE | 2018-09-06 00:16 | NUR ---
PATIENT IS NOW NPO. PATIENT IS RESTING IN BED. PATIENT AWOKEN WHEN ROOM WAS ENTERED. PATIENT DENIES ANY NEEDS. CALL LIGHT IN REACH.
--- NOTE | 2018-09-06 01:46 | NUR ---
PATIENTS VITALS TAKEN AND RECORDED. IN TAKE AND OUTPUT RECORDED. PATIENTS APPEARS CONFUSED. PATIENT REORIENTED. PATIENT DENIES THE NEED FOR PAIN MEDICATION AT THIS TIME. CALL LIGHT IN REACH.
--- NOTE | 2018-09-06 03:24 | NUR ---
FRESH ICE PACKS PROVIDED. PATIENT IS RESTING IN BED WITH EYES CLSOED, RR 18. CALL LIGHT IN REACH.
--- NOTE | 2018-09-06 05:10 | NUR ---
PATIENT RESTED WELL THROUGHOUT THE SHIFT. PATIENT HAS BEEN NPO SINCE MIDNIGHT. PATIENT IS FORGETFUL AT TIMES. PATIENT REORIENTS EASY. PATIENT HAD X1 BM. PATIENT HAS RIGHT LOWER EXT ELEVATED ON PILLOW AND ICE APPLIED. PATIENTS RIGHT LOW EXT IS DRAINING SEROSANGUINIOUS FLUID. PATIENT HAS MARSHALL PRESENT, URINE OUPUT QS. PATIENT IS A 1PA TO [facility]. PATIENT HAS BED ALARM ON FOR SAFETY. PATIENT USES CALL LIGHT APPROPRIATELY.
--- NOTE | 2018-09-06 05:33 | NUR ---
PATIENTS VITALS TAKEN AND RECORDED. PATIENTS MARSHALL EMPTIED. PATIENT IS RESTING IN BED. PATIENT DENIES ANY NEEDS. CALL LIGHT IN REACH.
--- NOTE | 2018-09-06 06:29 | CONS ---
[facility] [address], [place] [address] Signed DATE OF CONSULTATION: 09/05/2018 CHIEF COMPLAINT: Hematoma, right leg. HISTORY OF PRESENT ILLNESS: Tiffany is a 78-year-old gentleman on Coumadin for his atrial fibrillation. He bumped his leg last week and had a laceration and been in the ER. Apparently, it was not too offly significant so as they let him go home; however, he stayed on the Coumadin. He developed a rather large hematoma and ended up coming back to the emergency room a couple of days ago. He has been admitted to the internal medicine service. He had an ultrasound of that area. It looks like all this is subcutaneous. Initially, the CK was normal, although it has gone up just a little bit. He does not appear to be overtly infected. The orthopedic service had been called and they decided to have General Surgery called since there was no compartment syndrome. Consequently, I have been asked to see Tiffany Villafuerte today. PAST MEDICAL HISTORY: Lumbago, chronic pain, atrial fibrillation, COPD, hyperlipidemia, spinal stenosis, constipation, chronic renal failure, diverticulosis, electrocution, gout, shoulder pain, and benign prostatic hyperplasia. PAST SURGICAL HISTORY: Cardiac angiogram with 5 stents, right knee replacement, appendectomy, Cindi resection with reversal for the diverticular disease, bilateral ear surgery, tonsils and cholecystectomy. SOCIAL HISTORY: He does not smoke, but he has beer once in a while. His friend at [phone] and his son at [phone]. PRIMARY CARE PROVIDER: Albania Alvarez MD FAMILY HISTORY: Not reviewed today. REVIEW OF SYSTEMS: He had 10 systems reviewed. Tiffany Villafuerte told me there has not really much happened since I saw him previously other than his leg. ALLERGIES: He is allergic to the gadolinium contrast and apparently the contrast they used for his Electronically Signed By: MIRI DICKSON MD 09/06/18 0629 PATIENT NAME: TIFFANY DESHPANDE CONSULTATION DATE OF : 38 REPORT #: [id number] PHYSICIAN: MIRI DICKSON MD PCP: ALBANIA ALVAREZ MD REPORT IS CONFIDENTIAL AND NOT TO BE RELEASED WITHOUT AUTHORIZATION [facility] [address] [place] [id number] Signed cardiac cath. MEDICATIONS: Cephalexin, nitroglycerin, metoprolol, lisinopril, potassium chloride, triamterene and hydrochlorothiazide, tamsulosin, and Coumadin. PHYSICAL EXAMINATION: VITAL SIGNS: Blood pressure 93/56, heart rate 87, respiratory rate 18, temperature is 98.2. He is 97% on room air. He is 5 feet 8 inches at 104 kg. GENERAL: Tiffany Villafuerte 78-year-old gentleman lying supine semi-recumbent in his hospital bed. He recognized me when I came in the room. He has pursed lips as he breathes. CHEST: His lungs have distant breath sounds. His heart appears to be regular rate and rhythm. ABDOMEN: Obese and soft. MUSCULOSKELETAL: He has maybe 10 cm laceration over the pretibial area on the right leg with a large hematoma anteriorly and laterally and somewhat posteriorly and there was black skin anteriorly and a large area also posteriorly of black skin. No obvious local signs or symptoms of infection. LABORATORY DATA: His white blood cell count is 11, neutrophils are 84, hemoglobin 9.5. Sodium is 129, BUN 34, creatinine 1.6, glucose 111. Lactic acid is 1.5. INR is 4.0. CK was 51, it is up 364. BNP was 145. RADIOGRAPHIC STUDIES: An ultrasound was performed and apparently this hematoma was above the fascia of the muscle and a CT scan of the leg has been ordered for today as well. ASSESSMENT AND PLAN: Tiffany Villafuerte is a 78-year-old gentleman on Coumadin, who has developed a rather large laceration and hematoma with black skin on his right calf/leg. I explained Tiffany Villafuerte it clearly needs debrided back to healthy little viable bleeding skin and then he will need wound care. We will have to see how it develops, overtime he might need skin grafts and due timely, he might allow this heal in secondarily, even though it is fairly large. We will get this done as soon as the INR is reversed on the vitamin K, which hopefully be tomorrow. In the meantime, he is welcome to have a Coumadin regulated diet and his chronic medications and I will check in on him in the morning. If he needs surgery, I could probably add him on late tomorrow or the next day. He has expressed understanding and agrees above with plan. Miri Dickson MD Electronically Signed By: MIRI DICKSON MD 09/06/18 0629 PATIENT NAME: TIFFANY DESHPANDE CONSULTATION DATE OF : 38 REPORT #: [id number] PHYSICIAN: MIRI DICKSON MD PCP: ALBANIA ALVAREZ MD REPORT IS CONFIDENTIAL AND NOT TO BE RELEASED WITHOUT AUTHORIZATION [facility] [address] [place], [place] [address] Signed ALB/MODL /[id number] cc: MD Albania Dumont MD Copies: MIRI DICKSON MD, JONATHAN MD ~ Electronically Signed By: MIRI DICKSON MD 09/06/18 0629 PATIENT NAME: TIFFANY DESHPANDE CONSULTATION DATE OF : 38 REPORT #: [id number] PHYSICIAN: MIRI DICKSON MD PCP: ALBANIA ALVAREZ MD REPORT IS CONFIDENTIAL AND NOT TO BE RELEASED WITHOUT AUTHORIZATION
--- NOTE | 2018-09-06 07:05 | NUR ---
RECIEVED BEDSIDE REPORT FROM IDALIA GILLESPIE. PT IN BED, RLE ELEVATED ON 2 PILLOWS. PERSONAL SUPPLIES AND CALL LIGHT IN REACH.
--- NOTE | 2018-09-06 08:38 | NUR ---
PT UP TO BEDSIDE COMMODE TO ATTEMPT TO HAVE A BM, PASSED FLATUS BUT NO BM. BACK TO BED WITH RLE ELEVATED, ICE PACKS TO RLE. TRANSFERED WITH 1 PERSON ASSIST WITH FWW.PT ON 2L O2, OXYGEN SATURATION LEVEL 92%.
--- NOTE | 2018-09-06 11:00 | NUR ---
HELPED PATIENT DO SURGICAL WIPE DOWN. WASHED HIS FACE. CHANGED HIS DRAW SHEET AND LUIS MANUEL AND HIS TOP SHEET. AND NEW GOWN.
--- NOTE | 2018-09-06 12:41 | NUR ---
PT TRANFERED VIA BED FROM ROOM 119 TO DAY SURGERY AT 1240 ACCOMPANIED BY IDALIA JAY.
--- NOTE | 2018-09-06 13:57 | NUR ---
PT IS ALERT, ORIENTED AND SEEMS VERY UNCOMFORTABLE. HE IS SCHEDULED TODAY FOR SURGERY TO DEBRIDE WOUND. HE IS HOPEFUL IT WILL EASE HIS PAIN. SEEMS TO BE IN GOOD SPIRITS, EXTENDED A BLESSING-WILL FOLLOW NEEDED
--- NOTE | 2018-09-06 15:50 | NUR ---
09/06/18 1550 Zainab Ramirez [id number] PT TO PACU AWAKE, ALERT AND TALKING, PT IS UNABLE MOVE TOES AND CANNOT FEEL US TOUCHING HIS TOES. PT HAD FEMORAL BLOCK POPLITEAL BLOCK AND SPINAL PER Darlin SHIN CRNA.
--- NOTE | 2018-09-06 15:58 | EKG ---
[facility] [address] [facility] [place], [place] [address] Signed Atrial fibrillation with rapid ventricular response Abnormal ECG When compared with ECG of 03-AUG-2016 11:34, No significant change was found Confirmed by RUSS CUELLAR DO ([id number]) on 09/06/2018 3:58:31 PM Electronically Signed By: RUSS CUELLAR DO 09/06/18 1558 PATIENT NAME: KORIN DESHPANDE AUBRIE Electrocardiogram DATE OF : 38 PHYSICIAN: RUSS CUELLAR DO REPORT #: [id number] REPORT IS CONFIDENTIAL AND NOT TO BE RELEASED WITHOUT AUTHORIZATION
--- NOTE | 2018-09-06 16:40 | NUR ---
CARE CONFERENCE REQUESTED BY PT FAMILY TO COME TO ROOM TO TALK WITH THEM. UPON ENTERING ROOM PT IS GONE TO SURG/PACU. PT SISTER AND HER , ANOTHER SISTER, AND PT SON HOA ARE IN ROOM. THEY ARE VOICING A CONCERN ABOUT THE PT RETURNING HOME BY HIMSELF AFTER SURGERY. I ASSURED THEM THAT WE WOULD TALK ABOUT DISCHARGE PLANNING ONCE WE KNOW WHAT HAPPENED IN [facility] AND WHAT THE PT IS ABLE TO DO WITH PT AND OT.
--- NOTE | 2018-09-06 17:13 | NUR ---
PT TO FLOOR TO ROOM 119 ACCOMPANIED BY IDALIA MCCARTY, AND IDALIA HOLMAN AT 1655. PT DENIED PAIN. ABLE TO WIGGLE TOES, ABLE TO FEEL TOUCH TO BILATERAL FEET/TOES. DRESSING TO RIGHT LOWER LEG FROM JUST BELOW KNEE TO ANKLE, MODERATE AMOUNT OF SEROUSANGUAINOUS DRAINAGE PRESENT TO BACK OF DRESSING. DRESSING HAS SALINE SATURATED KERLIX PACKING IN WOUNDS PER REPORT FROM IDALIA HOLMAN. PT ON RA, OXYGEN SAT 90-92%. PEDAL PULSES TO RLE FAINT AND THREADY, CAPILARY REFILL 2 SECONDS.
--- NOTE | 2018-09-06 18:15 | NUR ---
PATIENT ABLE TO ROLL SELF TO REMOVE TRANSFER PAD OUT FROM UNDER HIM. SEROSANGUIOUS DRAINAGE NOTED ON OLD PAD, RIGHT LEG ELEVATED ON 2 PILLOW WITH NEW PAD. PATIENT SITTING UP IN BED TO EAT DINNER. PATIENT DENIES PAIN IN RIGHT LEG.
--- NOTE | 2018-09-06 19:34 | NUR ---
PT'S BP 96/58, PULSE 92, PT ON 2L O2 VIA NC, OXYGEN SAT 92%. NOTIFIED DR. CUELLAR VIA TELEPHONE OF ABOVE NOTED.
--- NOTE | 2018-09-06 20:05 | NUR ---
PATIENT IN BED SUPINE AND NO PAIN AT ALL. RESTING QUIETLY WATCHING TV. PATIENT CALL LIGHT IN REACH AND HAS NO NEEDS AT THIS. RIGHT LOWER LEG WRAPPED IN ONEIL WRAP DRESSING WITH A SMALL AMOUNT OF RED DRAINAGE.
--- NOTE | 2018-09-06 22:45 | NUR ---
PATIENT REPOSITIONED IN BED. REMAINS ON PULSE OX.
--- NOTE | 2018-09-06 22:58 | NUR ---
PATIENT NEED ADJUSTED IN BED. REARRANGED HIS PILLOWS UNDER HIS LEGS CLEAN SHEET GIVEN ,FRESH WATER GIVEN . NO OTHER NEED AT THIS TIME.
--- NOTE | 2018-09-07 00:03 | NUR ---
PATIENT'S PAIN AND HE IS JUST RESTING AWAKE IN BED. SATS 93% ON 2L/NC.
--- NOTE | 2018-09-07 03:00 | NUR ---
PATIENT GOT 10MG OXYCODONE JUST BEFORE 2AM. ANDRÉS VALENZUELA HELPED ME CHANGE THE LARGE SURGICAL DRESS TO THE PATIENT'S RIGHT LEG. LARGE LACERATION OPEN ON RIGHT TONY AND MOST OF THE SKIN AND SUB-Q TISSUE HAS BEEN REMOVED FROM THE RIGHT CALF AREA. PATIENT TOLERATED THE UNPACKING, WASHING AND REPACKING OF THESE SITES WELL. PICTURES OF THESE SITES HAVE BEEN PLACED IN THE CHART. INSTRUCTIONS FOR THE BID DRESSING ARE IN THE ORDERS.
--- NOTE | 2018-09-07 05:00 | NUR ---
PATIENT PULLED UP IN BED, DRAW SHEET CHANGED AND PATIENT SAYS HE IS FEELING OK AT THIS TIME. RIGHT LEG DRESSING STILL CLEAN AND INTACT. PATIENT PULLED OUT HIS LEFT ARM IV INTACT. REMAINS ON PULSE OX AND 3L/NC.
--- NOTE | 2018-09-07 07:00 | NUR ---
BEDSIDE REPORT RECEIVED FROM IDALIA SIFUENTES. PT RESTING SUPINE IN BED, EYES CLSOED AND RESPIRATIONS EVEN AND UNLABORED AND PT APPEARS TO BE SLEEPING COMFORTBALY. CAP REFILL ,1SEC TO RLE. PT ON 3LPNC SATTING 97% WITH HR98. CALL LIGHT AND H20 IN REACH.
--- NOTE | 2018-09-07 07:13 | OR ---
[facility] [address], [place] [address] Signed DATE OF OPERATION: SURGEON: Miri Dickson MD DATE OF PROCEDURE: 09/06/2018 PREOPERATIVE DIAGNOSIS: Large right leg/calf hematoma and laceration. POSTOPERATIVE DIAGNOSIS: Large right leg/calf hematoma and laceration. PROCEDURES: 1. Incision and drainage of large right leg/calf hematoma. 2. Sharp debridement of skin and wound, right leg/calf. ESTIMATED BLOOD LOSS: Minimal. INDICATIONS: Tiffany is a 78-year-old gentleman who happens to be on Coumadin for his atrial fibrillation. He had bumped his pretibial area and had a rather long probably 6 cm-8 cm laceration. He had been in the emergency room. He had been allowed to go home. He is continued on the Coumadin. He then developed a rather significant subcutaneous hematoma. Of course, some of that had settled down his leg onto the top of the foot. Unfortunately, he developed pressure necrosis laterally on that right calf at least 8 x 10 cm. That skin is black and leathery. The Orthopedic Service had looked and felt that it was better if we look at General Surgery Service. He did not seem to have any compartment syndrome. Initial ultrasound followed by CT scan of his leg showed the hematoma seen with some pressure onto the muscle but not down through the outer fascial layer of the muscle. Tiffany was on Coumadin with an INR of 4 and so he received vitamin K yesterday and we brought his INR down to 1.3. I explained to Tiffany and his sister that we needed to open those two areas of black leathery skin and completely excise it sharply with a knife back to bleeding skin and we in fact wait all the clotted hematoma underneath. He would have to have saline gauze moist packing and then in due time, we will see how it develops. He may need some additional skin debrided and he may very well need some skin grafts down the road once all the hematoma was resolved and we have a better granulation tissue. Tiffany is fully aware that these wounds are going to be left open as we described. He has expressed understanding and would like to proceed. Electronically Signed By: MIRI DICKSON MD 09/07/18 0713 PATIENT NAME: TIFFANY DESHPANDE OPERATIVE REPORT DATE OF : 38 REPORT #: [id number] PHYSICIAN: MIRI DICKSON MD PCP: ALBANIA ALVAREZ MD REPORT IS CONFIDENTIAL AND NOT TO BE RELEASED WITHOUT AUTHORIZATION [facility] [address] [place] [id number] Signed PROCEDURE NOTE: Tiffany underwent a spinal block and a femoral nerve block by our nurse massage operator. It looks like he had possibly a popliteal block and unfortunately, the sciatic nerve block was not successful. Consequently, he needed the spinal block. After this, Tiffany and I had agreed on his right leg and marked it appropriately. He was then taken into our operating room and placed in the left lateral decubitus position with appropriate padding and monitoring. He was given a little propofol IV per nurse massage operator during the procedure. We then used our 20 blade knife and we debrided all the black oil well drilling manager skin back to bleeding skin edges. Between the laceration over the pretibial area and his lateral calf, there is a skin bridge. It is probably 2 or 3 cm wide. We think there was a little blood flow on those edges and we left that in place. We will see how it develops in the days ahead. We evacuated copious amounts of subcutaneous dark clotted blood. The wound was then irrigated and suctioned out until clear. We then packed the wound with 4-inch wide saline soaked gauze and then covered that with dry gauze, dry ABD, 4-inch Kerlix wrap around his leg gently and then a 6-inch Abdirahman wrap gently around his leg. After this, Tiffany Villafuerte was transferred to his hospital bed and taken into recovery room in stable condition. Miri Dickson MD [facility]/MODL /[id number] cc: [place]ia Alvarez MD Copies: ALBANIA ALVAREZ MD ~ Electronically Signed By: MIRI DICKSON MD 09/07/18 0713 PATIENT NAME: TIFFANY DESHPANDE OPERATIVE REPORT DATE OF : 38 REPORT #: [id number] PHYSICIAN: MIRI DICKSON MD PCP: ALBANIA ALVAREZ MD REPORT IS CONFIDENTIAL AND NOT TO BE RELEASED WITHOUT AUTHORIZATION
--- NOTE | 2018-09-07 12:19 | NUR ---
Pt up to restroom with 2pa and fww. Pt agrees to pull call string(in reach) when finished.
--- NOTE | 2018-09-07 12:53 | NUR ---
DSG TO RLE CHANGED PER MD ORDER. CALL LIGHT AND H2O IN REACH. PT REPORTS 9/10 PAIN SO PRN PO OXYCODONE ADMINISTERED PER PT REQUEST. CALL LIGHT AND H20 IN REACH. PT DENIES FURHTER NEEDS/CONCERNS.
--- NOTE | 2018-09-07 15:34 | NUR ---
PT SITTING UP IN BED, REPORTS PAIN IS 7/10 SO SCHEDULED PO TYLENOL ADMINISTERED. CALL LIGHT AND H20 IN REACH. NO NEEDS/CONCERNS VOICED. PULSE OX REMOVED PER MD REQUEST.
--- NOTE | 2018-09-07 19:52 | NUR ---
REPORT RECEIVED, PT RESTING IN BED, OXYGEN SAT SPOT CHECKED, O2 SAT 95% ON RA, NO C/O SOB/CP, RT IN ROOM NOW, NO REQUESTS FROM PT AT THIS TIME, IV SL, CALL LIGHT WITHIN REACH. FALL PRECAUTIONS IN PLACE.
--- NOTE | 2018-09-07 21:30 | NUR ---
IN ROOM FOR ASSESSMENT, EVENING MEDS GIVEN, TOLERATED PO, PT GIVEN PRN PAIN MEDICATION PER EMAR PER PT'S REQUEST FOR 8/10 PAIN RELATED TO RIGHT LEG, PT'S RIGHT LEG WOUND REPACKED WITH WET GAUZE, COVERED WITH ABD/KERLEX AND ONEIL WRAP, PT'S WOUND BED RED IN BOTH WOUNDS, GRANULATION TISSUE NOTED IN BOTH WOUNDS, NO SIGNS OF EXCESS DRAINAGE. PT AOX4, LS CLEAR, ON 2LNC, NO C/O SOB/CP, RIGHT LEG ELEVATED ON PILLOW, NO REQUESTS AT THIS TIME, CALL LIGHT WITHIN REACH. FALL PRECAUTIONS IN PLACE.
--- NOTE | 2018-09-07 23:00 | NUR ---
PT RESTING IN BED, NO REQUESTS AT THIS TIME, CALL LIGHT WITHIN REACH.
--- NOTE | 2018-09-08 00:38 | NUR ---
PT RESTING IN BED, EYES CLOSED, BREATHS EVEN, UNLABORED, NO REQEUSTS AT THIS TIME, CALL LIGHT WITHIN REACH. FALL PRECAUTIONS IN PLACE.
--- NOTE | 2018-09-08 02:47 | NUR ---
PT RESTING IN BED, EYES CLOSED, BREATHS EVEN, UNLABORED, ON 2LNC, NO C/O SOB/CP, RIGHT LEG ELEVATED ON PILLOW, NO NEEDS AT THIS TIME, CALL LIGHT WITHIN REACH.
--- NOTE | 2018-09-08 04:40 | NUR ---
PT AOX4 THIS SHIFT, APPROPRIATE, RECEIVED PRN PAIN MEDICATION X1 THIS SHIFT, PT DID NOT HAVE A BM THIS SHIFT, MARSHALL CATH DRAINING WNL, IV SL, WOUND CARE COMPLETED PER ORDERS, PT TOLERATED WELL, RIGHT LEG ELEVATED ON PILLOW, CMS INTACT, CAP REFILL WNL, VSS, AFEBRILE,
--- NOTE | 2018-09-08 06:29 | NUR ---
PT RESTING IN BED, NO NEEDS AT THIS TIME, CALL LIGHT WITHIN REACH, MARSHALL CATH DRAINING WNL, PO FLUIDS AT BEDSIDE. ON 2LNC, NO C/O SOB/CP, NO C/O PAIN.
--- NOTE | 2018-09-08 07:02 | NUR ---
Pt resting supine in bed eyes closed and respirations even and unlabored. Pt appears to be sleeping comfortably. Call light and h20 in reach. Bedside report received from IDALIA Hopkins.
--- NOTE | 2018-09-08 09:35 | NUR ---
PT SITTING UP IN CHAIR, TOLERATED BREAKFAST WELL. PT ASSESSMENT COMPLETED. CALL LIGHT AND H20 IN REACH. PT STATES HE IS COMFORTABLE AND APPEARS TO BE IN NO ACUTE DISTRESS AND DENIES NEEDS/CONCERNS.
--- NOTE | 2018-09-08 10:08 | NUR ---
Severiano Gutiérrez notified this RN that pt's HR increased to 170's with short ambulationa nd then returned to 130's at rest. pt up to bathroom having bowel movement, all source collection manager assisting pt in restroom. no dizziness or sob reported by patient. notified of pt's elevated hr during PT eval.
--- NOTE | 2018-09-08 10:33 | NUR ---
LAB NOTIFIED OF NEW ORDERS FOR TYPE/CROSS AND 1 UNIT OF PRBC'S. BLOOD ADMINISTRATION DISCUSSED WITH PT BY AND ALL QUESTIONS ANSWERED, BLOOD CONSENT WAS PREVIOUSLY SIGNED AND VALID FOR 180DAYS. CALL LIGHT IN REACH. PT DENIES PALPITATIONS, LIGHTHEADEDNESS OR OTHER SX'S AND APPEARS TO BE IN NO ACUTE DISTRESS.
--- NOTE | 2018-09-08 14:19 | NUR ---
TALKED WITH THE PT THIS AM ABOUT HIS DISCHARGE AND HE STATES HE IS PLANNING ON RETURNING HOME AND TAKING CARE OF HIMSELF AND HAVING "SOMEONE" CHANGE HIS DRESSING TO HIS LEG ORDERED. EXPLAINED TO HIM THAT HE MAY NEED TO GO TO A SNF FOR A FEW DAYS AND HE STATED HE IS NEVER GOING BACK TO [facility] AGAIN. WE THEN DISCUSSED OTHER POSSIBILITIES OF SNFS IN THE REGION. HE STATED HE WANTED TO TALK ABOUT IT WITH HIS SON HERE. WE TALKED ABOUT GETTING HIS FOUR WHEELED WALKER, HE SAID HE WANTED IT FROM [facility]. CHART NOTES INCLUDING FACE SHEET, ORDER, H AND P, OP NOTE, PROG NOTES, PT AND OT EVALS AND NOTES FAXED TO [facility]. TALKED WITH STAFF TO LET THEM KNOW THEY WERE COMING. RECIEVED FAX CONFIRMATION.
--- NOTE | 2018-09-08 15:10 | NUR ---
Pt resting supine in bed, watching tv. Pt denies pain, sob or any new symptoms. Call light and h20 in reach. No needs/concerns voiced.
--- NOTE | 2018-09-08 17:00 | NUR ---
PT RESTING SUPINE IN BED EYES CLOSED AND RESPIRATIONS EVEN AND UNLABORED. PT APPEARS TO BE SLEEPING COMFORTABLY. CALL LIGHT AND H2O IN REACH.
--- NOTE | 2018-09-08 18:34 | NUR ---
PT REPORTS 8/10 BURNING PAIN TO RLE WOUND SITE. DSG REMAINS CDI AND CMS INTACT. PT REQUESTED AND RECEIVED PRN PO OXYCODONE. CALL LIGHT AND H2O IN REACH AND PT DENIES FURHTER NEEDS/CONCERNS. PT DECLINES GOING FOR A WALK OR TO GET UP TO CHAIR AT THIS TIME BUT AGREES TO USE CALL LIGHT AFTER PAIN IS TOLERABLE SO HE CAN BE ASSISTED ON A WALK.
--- NOTE | 2018-09-08 20:20 | NUR ---
HELPED PT TO THE BATHROOM AND BACK TO BED WITH HIS FWW. BEDSIDE TABLE AND CALL LIGHT IN REACH.
--- NOTE | 2018-09-08 21:23 | NUR ---
VITALS AND I&OS DONE AND CHARTED. BEDSIDE TABLE AND CALL LIGHT IN REACH.
--- NOTE | 2018-09-08 22:30 | NUR ---
ASSESSMENT COMPLETE, REFER TO ASSESSMENT. PATIENT DENIES PAIN. RLE ELEVATED ON PILLOW. DRESSING SHOWS MODERATE AMOUNT OF SEROUS DRAINAGE ON DRESSING UNDER RIGHT CALF. RLE TEMPERATURE IS ASSESSED TO BE SIMILAR TO THAT OF LLE. THREADY PULSES NOTED IN RLE, CAPILLARY REFILL LESS THAN 2 SECONDS. PATIENT REPORTS SENSATION IN RLE. PATIENT DENIES CHEST PAIN, SHORTNESS OF BREATH, OR DIFFICULY BREATHING. URINAL EMPTIED. SCD IN PLACE ON LLE. 2L VIA NC, NO SIGNS OF DISTRESS. CALL LIGHT WITHIN REACH. NO MORE NEEDS AT THIS TIME.
--- NOTE | 2018-09-08 22:35 | NUR ---
ADMINISTERED MEDICATIONS FOR PRIMARY RN ILDEFONSO. PT REPORTS PAIN 8/10 AT THIS TIME. OXYCODONE ADMINISTERED. PT DENIES FURTHER NEEDS AT THIS TIME. CALL LIGHT IS WITHIN REACH.
--- NOTE | 2018-09-08 22:58 | NUR ---
PT DROPPED HIS URINAL ON THE FLOOR, I WENT IN AND PICKED IT UP FOR HIM PER HIS REQUEST. CALL LIGHT IN REACH. NOTHING MORE AT THIS TIME.
--- NOTE | 2018-09-09 00:30 | NUR ---
ROUNDED ON PATIENT TO PERFORM DRESSING CHANGE PER ORDER. MODERATE AMOUNT OF SEROSANGUANOUS DRAINAGE NOTED ON PREVIOUS DRESSSING. TISSUE AROUND AND WITHIN WOUND PINK IN COLORATION, NO SIGNS OF SWELLING OR IRRIATION. PATIENT RATES PAIN A "8/10" AFTER DRESSING CHANGE AND DENIES WANTING PRN PAIN MEDICATION AT THIS TIME. ESTATE PLANNING ATTORNEY BROUGHT PATIENT JUICE AND ICE WATER PER PATIENT REQUEST. RLE ELEVATED ON PILLOW. CALL LIGHT WITHIN REACH. NO MORE NEEDS AT THIS TIME. PATIENT DENIES WANTING TO GO FOR A WALK AT THIS TIME.
--- NOTE | 2018-09-09 03:56 | NUR ---
ROUNDED ON PATIENT RESTING IN BED WITH EYES CLOSED, RESPIRATORY RATE IS EVEN AND UNLABORED. NO SIGN OF TENSING OR GRIMACING. CALL LIGHT WITHIN REACH.
--- NOTE | 2018-09-09 06:23 | NUR ---
ASSESSMENT COMPLETE, REFER TO ASSESSMENT. PATIENT REPORTS "8/10" PAIN IN RLE, PRN PAIN MEDICATION ADMINISTERED PER JUL ORDER. SCHEDULED MEDICATION ADMINISTERED PER JUL ORDER. PATIENT DENIES CHEST PAIN, SHORTNESS OF BREATH, OR DIFFICULTY BREATHING. TEMPERATURE OF RLE IS SIMILAR TO THAT OF THE TEMPERATURE OF LLE. THREADY PULSES NOTED IN RLE, CAPILLARY REFILL LESS THAN 2 SECONDS. DRESSING ON RLE IS CDI, NO NEW DRAINAGE NOTED. RLE ELEVATED ON PILLOW. 2L VIA NC, NO SIGNS OF DISTRESS. PATIENT DENIES PRODUCING SPUTUM AT THIS TIME. SCD IN PLACE ON LLE. CALL LIGHT WITHIN REACH. NO MORE NEEDS AT THIS TIME
--- NOTE | 2018-09-09 07:02 | NUR ---
NOTIFIED DR. CUELLAR OF PATIENT SPUTUM THAT PATIENT PRODUCED DURING BEGINNING OF SHIFT. NO NEW ORDERS.
--- NOTE | 2018-09-09 07:15 | NUR ---
REPORT RECEIVED FROM IDALIA FREGOSO. PT RESTING WITH EYES CLOSED. LEG ELEVATED ON PILLOW. RESPIRATIONS EVEN AND UNLABORED. BED RAILS UP. CALL LIGHT WITHIN REACH.
--- NOTE | 2018-09-09 08:00 | NUR ---
PATIENT RESTING IN BED. PATIENT'S BREAKFAST ORDERED. ICE WATER GIVEN. CALL LIGHT WITHIN REACH. NO OTHER NEEDS AT THIS TIME
--- NOTE | 2018-09-09 09:00 | NUR ---
MORNING ASSESSMENT AND MEDICATIONS DUE. THIS RN TO BEDISE. 1PA, FWW UP TO CHAIR FOR BREAKFAST. PT REPORTS 910 PAIN, INFOMRED, SEE MAR FOR MEDICATION GIVEN. DRESSING CHANGED PER MD ORDER. SERIOUS ANGUINOUS DRAINAGE NOTED ON ABD PADS WITH DRESSING CHANGE. PT NOTED TO HAVE A BLOODY NOSE THIS MORNING. RT CALLED TO ADD HUMIDIFICATION TO OXYGEN. ROOM AIR TRIAL ATTEMPTED. PT UNABLE TO HOLD O2 SATURATION ABOVE 90%. HEART RATE INCREASES TO 100-110 WITH TRANSFER TO CHAIR, THEN DROPS TO 90'S. PIV NOTED TO HAVE INFILTRATED, WILL CONSULT MD. PT DEMONSTRATES USE OF I.S. AND CPT. PT EATING BREAKFAST, NO ADDTIIONAL REQUESTS OR COMPLAINTS. CALL LIGTH WITHIN REACH.
--- NOTE | 2018-09-09 09:15 | NUR ---
PT RESTING IN BED, RR WNL. NO DISTRESS NOTED, PT DENIES NEEDS AT THIS TIME. CALL LIGHT IN REACH.
--- NOTE | 2018-09-09 09:21 | NUR ---
PATIENT SITTING UP IN CHAIR. VITAL SIGNS AND I&O DONE. CALL LIGHT WITHIN REACH. NO OTHER NEEDS AT THIS TIME
--- NOTE | 2018-09-09 10:56 | NUR ---
THIS RN TO ROOM FOR ROUNDS WITH . PT UP TO CHAIR AND VISITING WITH FAMILY. NEW PIV STARTED PER PROTOCOL IN RH, LASIX GIVEN. PIV SALINE LOCKED. PT EDUCATION FOR FALL PREVENTION AND LASIX COMPLETE. PT VERBALIZES UNDERSTANDING AND REPEATS INSTRUCTIONS BACK TO THIS RN. PT REPORTS 9/10 PAIN, SEE MAR FOR MEDICATION GIVEN. PT WEANED TO ROOM AIR. CONTINOUS PLUSE OX IN PLACE FOR MONITORING. PT MAINTAINING O2 ABOVE 90% ON ROOM AIR. PT CONTINUES VISITING WITH FAMILY. NO ADDITONAL REQUESTS OR COMPLAINTS AT THIS TIME. CALL LIGHT AND URINAL WITHIN REACH.
--- NOTE | 2018-09-09 11:43 | NUR ---
PATIENT CALLS TO USE BATHROOM. PATIENT SITTING UP IN CHAIR. AND FAMILY IN ROOM. PATIENT GOES TO USE BATHROOM. PATIENT USES A WALKER. ONE PERSON ASSISTING. PATIENT BACKS TO CHAIR. ICE WATER GIVEN. CALL LIGHT WITHIN REACH. NO OTHER NEEDS AT THIS TIME
--- NOTE | 2018-09-09 11:45 | NUR ---
PATIENT'S USING BATHROOM. PATIENT'S GOWN CHANGED. NO OTHER NEEDS AT THIS TIME
--- NOTE | 2018-09-09 11:58 | NUR ---
NOON ASSESSMENT DUE THIS RN TO BEDSIDE. PT UP TO CHAIR FOR LUNCH. PT REPORTS PAIN AT 7/10 AND STATES PAIN IS TOLERABLE AT THIS TIME. PT DENIES NAUSEA BUT STATES HE IS SOB. IS AND CPT USED. O2 SATURATION RAISES TO 99% WITH I.S. USE (REACHES 1250). PT DENEIS ADDITIONAL SOB AFTER CPT AND I.S. USE. ASSESSMENT DONE. DRESSING C/D/I AT THIS TIME. LEG ELEVATED ON PILLOW. PT EATING LUNCH. FAMILY AT BEDSIDE. CALL [facility] WITHIN REACH. NO ADDITIONAL REQUESTS OR COMPLAINTS AT THIS TIME.
--- NOTE | 2018-09-09 13:00 | NUR ---
PT RESTING SUPINE IN BED, EYES CLOSED AND RESPIRATIONS EVEN AND UNLABORED. PT ALERT TO VOICE AND STATES HE IS ABOUT READY TO TAKE A NAP. PT IS ON ROOM AIR SATTING AT 97%. PT STATES HE IS COMFORTABLE AND DENIES NEEDS/CONCERNS AT THIS TIME. PT AGREES TO USE CALL LIGHT WHEN HE FEELS READY TO GO ON A WALK AND NEEDED FOR SAFETY. IDALIA VILLA IN AND GIVES BEDSIDE REPORT.
--- NOTE | 2018-09-09 13:02 | NUR ---
PATIENT RESTING IN BED. VITAL SIGNS AND I&O DONE. LOW SYSTOLIC BLOOD PRESSURE. RN NOTIFIED. CALL LIGHT WITHIN REACH. NO OTHER NEEDS AT THIS TIME
--- NOTE | 2018-09-09 16:10 | NUR ---
PATIENT IN BED WATCHING TV. ORAL CARE DONE. HANDS AND FACE CLEANED. ICE WATER GIVEN. CALL LIGHT WITHIN REACH. NO OTHER NEEDS AT THIS TIME
--- NOTE | 2018-09-09 16:26 | NUR ---
PT RESTING SUPINE IN BED WATCHING TV. CALL LIGHT AND H20 IN REACH. PT REPORTS BURNING PAIN "IT'S RIGHT THERE IN THE BONE" PAIN OF 9/10 TO RLE. CMS INTACT DISTALLY. PRN PO OXYCODONE AND SCHEDULED TYLENOL ADMINISTERED. -SEE EMAR. NO FURHTER NEEDS/CONCENRS VOICED. PT APPEARS TO BE HAVING GOOD RESPONSE FROM IV LASIX.
--- NOTE | 2018-09-09 17:44 | NUR ---
PATIENT SITTING UP IN BED WATCHING TV. VITAL SIGNS AND I&O DONE. CALL LIGHT WITHIN REACH. NO OTHER NEEDS AT THIS TIME
--- NOTE | 2018-09-09 19:00 | NUR ---
CHARGE ROUNDING DONE. PATIENT APPEARS TO BE SLEEPING. BED ALARM ON. CALL LIGHT IN REACH.
--- NOTE | 2018-09-09 19:15 | NUR ---
SHIFT REPORT RECEIVED FROM DAYSHIFT IDALIA OLVERA AT BEDSIDE. PT AWAKE ON RA, DENIES SOB OR NEEDS AT THIS TIME. CALL LIGHT IN REACH.
--- NOTE | 2018-09-09 22:00 | NUR ---
ASSESSMENT COMPLETE, SCHEDULED MEDICATIONS GIVEN (SEE EMAR). VSS, PT ON RA. MILD WHEEZES NOTED, PT DENIES SOB OR DYSPNEA, O2 SAT WNL. WILL MONITOR. WOUND DRESSING TO RIGHT LOWER EXTREMITY COMPLETED PER MD ORDERS. PT TOLERATED DRESSING CHANGE WELL. RLE ELEVATED. PT IN GOOD SPIRITS, DENIES ADDITONAL NEEDS. CALL LIGHT IN REACH.
--- NOTE | 2018-09-10 01:20 | NUR ---
PT RESTING IN BED, RR WNL. NO DISTRESS NOTED, EYES CLOSED. CALL LIGHT IN REACH.
--- NOTE | 2018-09-10 04:40 | NUR ---
PT SITTING ON EDGE OF BED, DRINKING COFFEE. NO FURTHER NEEDS, CALL LIGHT IN REACH.
--- NOTE | 2018-09-10 04:42 | NUR ---
PT HAD UNEVENTFUL NIGHT, SLEPT FOR MOST OF THE SHIFT. VSS, PT ON RA. PT A/O. PT ON REGULAR DIET, NO NAUSEA, BOWEL TONES ACTIVE. 2PA WITH FWW FOR AMBULATION. WOUND CARE ORDERS FOR RLE, KEEP RLE ELEVATED. POSSIBLE DISCHARGE, PATIENT'S TWO SONS NEED TO BE PROVIDED WITH EDUCATION FOR HOME WOUND CARE FOLLOWING DISCHARGE. PT USES CALL LIGHT APPROPERIATELY.
--- NOTE | 2018-09-10 05:21 | NUR ---
ASSESSMENT COMPLETE. VSS. PT REPORTS MILD SOB, O2 SAT 91%, DENIES NEED FOR PRN BREATHING TREATMENT. UPPER LOBE WHEEZES NOTED. PT REPORTS 7/10 PAIN, DENIES NEED FOR PAIN MEDICATION AT THIS TIME AND STATES, "I'LL TELL YOU WHEN IT GETS TO A 9". DRESSINGN CDI, NO SHADOWING OR DRAINAGE NOTED AT THIS TIME. PT UP 1PA IN BATHROOM WITH HELP FROM LIQUID YEAST SUPERVISOR AUGUST. PT DENIES ADDITIONAL NEEDS. ROOM TIDED. VS AND I&O'S COMPLETED.
--- NOTE | 2018-09-10 07:02 | NUR ---
scheduled thyroid medication given. no further needs, call light in reach.
--- NOTE | 2018-09-10 07:15 | NUR ---
PT RESTING WITH HOB ELEVATED IN BED, EYES CLOSED AND RESPIRATIONS EVEN AND UNLABORED. PT APPEARS TO BE SLEEPING COMFORTABLY. CALL LIGHT AND H20 IN REACH. BEDSIDE REPORT RECEIVED FROM IDALIA PEGUERO.
--- NOTE | 2018-09-10 08:27 | NUR ---
PATIENT WAS IN BED, HE GOT UP AND USED THE BATHROOM, HE THEN SAT IN HIS CHAIR, PATIENT IS VERY WILLING TO WORK WITH STAFF TODAY
--- NOTE | 2018-09-10 09:43 | NUR ---
Pt assisted up to restroom, and then on walked around nurses station. Pt tolerated well with fww and sba. Pt back to bed, assessment completed am meds were administered -see emar. Family in and verbalize willingness to learn dressing changes and were walked through dressing change process and educated on wound care. All questions answered. No concerns voiced. Call light and h20 in reach.
[2018-09-10] MEDS ORDERED: METOPROLOL SUCC50 MG PO (12:16)
[2018-09-10] MEDS ORDERED: OXYCODONE HCL5 MG PO (12:23)
--- NOTE | 2018-09-10 14:18 | NUR ---
Pt assisted up to restroom with sba and fww. Assessment completed. Pt reports high level of pain to right lower extremity. prn po oxycodone administered along with scheduled tylenol po -see emar. Call light and h2o in reach.
== END 2018-09-10 14:49 | disposition home or self-care (01) | DRG 605 ==
LOC: ED 10:52 → MS 10:53
PROVIDERS: Colon & Rectal Surgery; ADMIT Internal Medicine
PROC: 0HBKXZZ Excision of Right Lower Leg Skin, External Approach (ICD-10-PCS; 2018-09-06)
PROC: 3E0T3BZ Introduction of Anesthetic Agent into Peripheral Nerves and Plexi, Percutaneous Approach (ICD-10-PCS; 2018-09-06)
PROC: 0JCN0ZZ Extirpation of Matter from Right Lower Leg Subcutaneous Tissue and Fascia, Open Approach (ICD-10-PCS; principal; 2018-09-06 14:30)
DX: S80.11XA Contusion of right lower leg, initial encounter (principal); D68.32 Hemorrhagic disorder due to extrinsic circulating 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; N17.9 Acute kidney failure, unspecified; D62 Acute posthemorrhagic anemia; T45.515A Adverse effect of 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, initial encounter; G89.18 Other acute postprocedural pain; K59.00 Constipation, unspecified; N18.3 Chronic kidney disease, stage 3 (moderate); I48.2 Chronic atrial fibrillation; F17.220 Nicotine dependence, chewing tobacco, uncomplicated; E78.5 Hyperlipidemia, unspecified; I25.10 Atherosclerotic heart disease of native coronary artery without angina pectoris; J44.9 Chronic obstructive pulmonary disease, unspecified; M48.00 Spinal stenosis, site unspecified; M10.9 Gout, unspecified; G89.29 Other chronic pain; I95.9 Hypotension, unspecified; E66.9 Obesity, unspecified; R74.0 Nonspecific elevation of levels of transaminase and lactic acid dehydrogenase [LDH]; W19.XXXA Unspecified fall, initial encounter; Y92.009 Unspecified place in unspecified non-institutional (private) residence as the place of occurrence of the external cause; Z95.5 Presence of coronary angioplasty implant and graft; Z79.899 Other long term (current) drug therapy; Z91.041 Radiographic dye allergy status; Z68.35 Body mass index [BMI] 35.0-35.9, adult
CPT/HCPCS: 36415; 62322; 64447; 71045; 71250; 73590; 73700; 76882; 80048; 80053; 80074; 82550; 83605; 83735; 83880; 84100; 84134; 85025; 85610; 86850; 86900; 86901; 86920; 93005; 93010; 94640; 94667; 94668; 94760; 94762; 97110; 97116; 97162; 97165; 97535; 99284-25; J0696; J0780; J1940; J2270; J2405; J2704; J2795; J3010; J3430; J3480; J7060; J7120

== ENCOUNTER 2018-09-25 10:06 | Observation (INO) | payer MEDICARE, OTHER ==
[~2018-09-25] VITALS: Ht 172.7 cm; Wt 99.4 kg
--- OUTSIDE RECORDS SUMMARY | ~2018-09-25 | XMS | Clinical Summary ---
Demographics + + + | Address | [address] | | | [place] [address] | + + + | Home Phone | | + + + | Preferred Language | Unknown | + + + | Marital Status | | + + + | Episcopalian Affiliation | Unknown | + + + | Race | Unknown | + + + | Ethnic Group | Unknown | + + + Author + + + | Author | [facility] | + + + | Organization | [facility] | + + + | Address | Unknown | + + + | Phone | Unavailable | + + + Support + + +---------+ + | Name | Relationship | Address | Phone | + + +---------+ + | Malcolm Gibbs | ECON | Unknown | | + + +---------+ + Care Team Providers + +------+ + | Care Capacitor Inspector Name | Role | Phone | + +------+ + | Isaias Mcrae MD | PP | | + +------+ + Allergies + + + + + + | Active Allergy | Reactions | Severity | Noted | Comments | | | | | Date | | + + + + + + | Iodinated Diagnostic | Anaphylaxis | High | 08/28/19 | | | Agents | | | 14 | | + + + + + + Current Medications + + + +---------+------+------+-------+ | Prescription | Sig. | Disp. | Refills | Star | End | Statu | | | | | | t | Date | s | | | | | | Date | | | + + + +---------+------+------+-------+ | allopurinol | Take 300 mg by mouth | | | | | Activ | | (ZYLOPRIM) 300 MG | daily. | | | | | e | | tablet | | | | | | | + + + +---------+------+------+-------+ | zolpidem (AMBIEN) | Take 10 mg by mouth | | | | | Activ | | 10 MG tablet | nightly as needed. | | | | | e | + + + +---------+------+------+-------+ | warfarin | Take 4 mg by mouth | | | | | Activ | | (COUMADIN) 4 MG | daily. | | | | | e | | tablet | | | | | | | + + + +---------+------+------+-------+ | nitroGLYCERIN | Place 0.4 mg under | | | | | Activ | | (NITROSTAT) 0.4 MG | the tongue every 5 | | | | | e | | SL tablet | (five) minutes as | | | | | | | | needed. | | | | | | + + + +---------+------+------+-------+ | | Take 1 tablet by | | | | | Activ | | HYDROcodone-acetamin | mouth every 6 (six) | | | | | e | | ophen (NORCO) 10-325 | hours as needed. | | | | | | | MG per tablet | | | | | | | + + + +---------+------+------+-------+ | | Inhale 1 puff into | 60 each | 0 | 04/0 | | Activ | | fluticasone-salmeter | the lungs 2 (two) | | | 9/20 | | e | | ol (ADVAIR) 250-50 | times daily. | | | 14 | | | | MCG/DOSE | | | | | | | + + + +---------+------+------+-------+ | tiotropium | Inhale 1 capsule | 30 | 0 | 04/0 | | Activ | | (SPIRIVA) 18 MCG | into the lungs | capsule | | 9/20 | | e | | inhalation capsule | daily. | | | 14 | | | + + + +---------+------+------+-------+ | metoprolol | TAKE ONE TABLET BY | 60 | 0 | 04/2 | | Activ | | (LOPRESSOR) 25 MG | MOUTH TWICE A DAY. | tablet | | 4/20 | | e | | tablet | HOLD FOR HEART RATE | | | 14 | | | | | LESS THAN 60, HOLD | | | | | | | | FOR SYSTOLIC BLOOD | | | | | | | | PRESSURE LESS THAN | | | | | | | | 100. | | | | | | + + + +---------+------+------+-------+ | lisinopril | TAKE ONE TABLET BY | 30 | 0 | 04/2 | | Activ | | (ZESTRIL) 2.5 MG | MOUTH EVERY DAY. | tablet | | 4/20 | | e | | tablet | HOLD FOR SYSTOLIC | | | 14 | | | | | BLOOD PRESSURE LESS | | | | | | | | THAN 100. | | | | | | + + + +---------+------+------+-------+ | atorvastatin | TAKE ONE TABLET BY | 30 | 0 | 05/0 | | Activ | | (LIPITOR) 40 MG | MOUTH EVERY DAY IN | tablet | | 3/20 | | e | | tablet | THE EVENING | | | 14 | | | + + + +---------+------+------+-------+ Active Problems + + + | Problem | Noted Date | + + + | Kidney cysts simple | 08/29/2013 | + + + | CKD (chronic kidney disease) stage 3, GFR 30-59 ml/min baseline | 08/29/2013 | | cr 1.49 | | + + + | Chest pain, unspecified | 08/28/2013 | + + + | SOB (shortness of breath) | 08/28/2013 | + + + | Unspecified essential hypertension | 08/28/2013 | + + + | COPD (chronic obstructive pulmonary disease) | 08/28/2013 | + + + | CAD S/P percutaneous coronary angioplasty | 08/28/2013 | + + + | Chews tobacco | 08/28/2013 | + + + | Other and unspecified hyperlipidemia | 08/28/2013 | + + + | ARF (acute renal failure) | 08/28/2013 | + + + Social History + +-------+ +--------+------+ | Tobacco Use | Types | Packs/Day | Years | Date | | | | | Used | | + +-------+ +--------+------+ | Never Smoker | | | | | + +-------+ +--------+------+ + + +---------+ + | Alcohol Use | Drinks/We | oz/Week | Comments | | | ek | | | + + +---------+ + | No | | | | + + +---------+ + + + + | Sex Assigned at | Date Recorded | | | | + + + | Not on file | | + + + Last Filed Vital Signs + + + + | Vital Sign | Reading | Time Taken | + + + + | Blood Pressure | 148/73 | 08/29/2013 11:18 AM PDT | + + + + | Pulse | 60 | 08/29/2013 11:18 AM PDT | + + + + | Temperature | 36.6 C (97.8 F) | 08/29/2013 11:18 AM PDT | + + + + | Respiratory Rate | 18 | 08/29/2013 11:18 AM PDT | + + + + | Oxygen Saturation | 98% | 08/29/2013 11:18 AM PDT | + + + + | Inhaled Oxygen | - | - | | Concentration | | | + + + + | Weight | 97 kg (213 lb 13.5 | 08/29/2013 4:17 AM PDT | | | oz) | | + + + + | Height | 172.7 cm (5' 8") | 08/28/2013 3:58 AM PDT | + + + + | Body Mass Index | 32.52 | 08/29/2013 4:17 AM PDT | + + + + Plan of [...] 65+ | 5 | | | | High/Highest Risk (1 | | | | | of 2 - PCV13) | | | | + + + + + | Vaccine: Influenza | | | | | (Season Ended) | 9 | | | + + + + + Results Not on filefrom Last 3 Months Insurance + +--------+ +------+-------+ + | Payer | Benefi | Subscriber | Type | Phone | Address | | | t Plan | ID | | | | | | / | | | | | | | Group | | | | | + +--------+ +------+-------+ + | MEDICARE | MEDICA | [id number] | | | [address] | | | RE | | | | [place] [phone] | | | IP-OP | | | | | + +--------+ +------+-------+ + | MEDICAID | [place] | [id number] | | | [address] | | | N | | | | [place] | | | [place] | | | | [phone] | | | DENTAL LABORATORY TECHNICIAN | | | | | + +--------+ +------+-------+ + + +--------+ +--------+ + + | Guarantor Name | Accoun | Relation to | Date | Phone | Billing Address | | | t Type | Patient | of | | | | | | | | | | + +--------+ +--------+ + + | ASHWIN GIBBS | Person | Self [birth year] Home: | [address] | | | al/Fam | | 1941 | [phone] | | | [place] | | | [phone] | [place] | | | | | | | [phone] | + +--------+ +--------+ + +
--- OUTSIDE RECORDS SUMMARY | ~2018-09-25 | XMS | Clinical Summary ---
Demographics + + + | Address | [address] | | | [place] [address] | + + + | Home Phone | | + + + | Preferred Language | Unknown | + + + | Marital Status | Single | + + + | Nondenominational Affiliation | Unknown | + + + | Race | Unknown | + + + | Ethnic Group | Unknown | + + + Author + + + | Author | [facility] | | | and [place] | + + + | Organization | [facility] | | | [...] [place] | | | | | [address] | | + + + + + Care Team Providers + +------+ + | Care Parish Nurse Name | Role | Phone | + [...] | [employer] | MODA | [id number] | 05/23/19 | [phone] | | Medica | | MEDICAID HMO [...] Self | [birth year] | [address] | | | al/Fam | | 1941 | [phone] | [place] [address] | | | mate[place] | | | 5 ([place]) | | + +--------+ +--------+ + + Advance Directives Patient has advance care planning documents on file. For more information, please contact:[facility] [place] [address]
--- OUTSIDE RECORDS SUMMARY | ~2018-09-25 | XMS | Clinical Summary ---
Demographics + + + | Address | [address] | | | [place] [address] | + + + | Home Phone | | + + + | Preferred Language | Unknown | + + + | Marital Status | Single | + + + | Scientologist Affiliation | Unknown | + + + | Race | Unknown | + + + | Ethnic Group | Unknown | + + + Author + + + | Author | [facility] | | | and [place] | + + + | Organization | [facility] | | | [...] [place] | | | | | [address] | | + + + + + Care Team Providers + +------+ + | Care Coupon Manifest Clerk Name | Role | Phone | + [...] | [employer] | MODA | [id number] | 05/23/19 | [phone] | | Medica | | MEDICAID HMO [...] Self | [birth year] | | [address] | | | al/Fam | | 1941 | [phone] | [place] [address] | | | [place] | | | 5 ([place]) | | + +--------+ +--------+ + + Advance Directives Patient has advance care planning documents on file. For more information, please contact:[facility] [place] [address]
--- OUTSIDE RECORDS SUMMARY | ~2018-09-25 | XMS | Clinical Summary ---
Demographics + + + | Address | [address] | | | [place] [address] | + + + | Home Phone | | + + + | Preferred Language | Unknown | + + + | Marital Status | | + + + | Faith Affiliation | Unknown | + + + | Race | Unknown | + + + | Ethnic Group | Unknown | + + + Author + + + | Author | [id number] | + + + | Organization | [facility] | + + + | Address | Unknown | + + + | Phone | Unavailable | + + + Support + + +---------+ + | Name | Relationship | Address | Phone | + + +---------+ + | Malcolm Gibbs | ECON | Unknown | | + + +---------+ + Care Team Providers + +------+ + | Care Roll Forming Machine Operator Name | Role | Phone | + [...] +------+-------+ + | MEDICARE | MEDICA | [id number] | | | [address] | | | RE | | | | [place] [phone] | | | IP-OP | | | | | + +--------+ +------+-------+ + | MEDICAID | [employer] | [id number] | | | [address] | | | N | | | | [place] | | | [place] | | | | [address] | | | 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
[~2018-09-25 10:06] MED LIST changes: +ADVAIR 250-501 EACH INH; +FUROSEMIDE20 MG PO; +LEVOTHYROXINE50 MCG PO; +METOPROLOL SUCC50 MG PO; +OXYCODONE HCL5 MG PO; +SPIRIVA18 MCG INH; +VENTOLIN HFA18 GM INH
--- OUTSIDE RECORDS SUMMARY | 2018-09-25 10:10 | XMS ---
PreManage Notification: KORIN DESHPANDE Security Tuberculosis Specialist Events No recent Security Events currently on file CRITERIA MET - [facility] - [facility] - 2 Visits in 30 Days CARE PROVIDERS [place] ALVAREZ [facility] 09/04/2018-Current PHONE: Unknown [place] Alvarez Current PHONE: Unknown Other Current PHONE: Unknown Joce has no Care Guidelines for this patient. E.Jon VISIT COUNT (12 MO.) 3 [facility] TOTAL 3 NOTE: Visits indicate total known visits. ED/UCC VISIT TRACKING (12 MO.) 09/25/2018 10:07 [facility] TYPE: Emergency COMPLAINT: - DIZZINESS/URINE PROBLEM 09/03/2018 10:52 [facility] TYPE: Emergency COMPLAINT: - LEG PAIN/SWELLING, POSS INFECTION 08/31/2018 19:42 [facility] TYPE: Emergency COMPLAINT: - FALL DIAGNOSES: - Other operator assistant i cementing (current) drug therapy - Hyperlipidemia, unspecified - Chronic obstructive pulmonary disease, unspecified - Unspecified atrial fibrillation - Essential (primary) hypertension - Fall (on) (from) unspecified stairs and steps, initial encounter - USP (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 - Pain in right lower leg - Encounter for immunization - Presence of coronary angioplasty implant and graft - Acquired absence of other organs - Disorder of kidney and ureter, unspecified - Hypertensive heart disease without heart failure - Personal history of nicotine dependence - Acquired absence of other specified parts of digestive tract - Contusion of right lower leg, initial encounter INPATIENT VISIT TRACKING (12 MO.) 09/05/2018 11:31 [facility] TYPE: Medical Surgical COMPLAINT: - LEG HEMATOMA/PAIN DIAGNOSES: - Presence of coronary angioplasty implant and graft - Other operator assistant i cementing (current) drug therapy - Body mass index (BMI) 35.0-35.9, adult - Laceration without foreign body, right lower leg, initial encounter - Atherosclerotic heart disease of [place] coronary artery without angina pectoris - Nicotine dependence, chewing tobacco, uncomplicated - Chronic atrial fibrillation - Unspecified fall, initial encounter - Hypotension, unspecified - Adverse effect of 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, initial encounter - Other operator assistant i cementing (current) drug therapy - 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 - Hyperlipidemia, unspecified - Other chronic pain - Unspecified place in unspecified non-institutional (private) residence as the place of occurrence of the external cause - Hyperlipidemia, unspecified - Constipation, unspecified - Body mass index (BMI) 35.0-35.9, adult - Other chronic pain - Nicotine dependence, chewing tobacco, uncomplicated - Contusion of right lower leg, initial encounter - Chronic kidney disease, stage 3 (moderate) - Acute posthemorrhagic anemia - Hypotension, unspecified - Presence of coronary angioplasty implant and graft - Atherosclerotic heart disease of [place] coronary artery without angina pectoris - 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 - Other acute postprocedural pain - Unspecified place in unspecified non-institutional (private) residence as the place of occurrence of the external cause - Gout, unspecified - Contusion of right lower leg, initial encounter - Radiographic dye allergy status - Unspecified fall, initial encounter - Spinal stenosis, site unspecified - Chronic obstructive pulmonary disease, unspecified - Acute kidney failure, unspecified - Chronic kidney disease, stage 3 (moderate) - Chronic atrial fibrillation - Gout, unspecified - Obesity, unspecified - Adverse effect of 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, initial encounter - Radiographic dye allergy status - Constipation, unspecified - Obesity, unspecified - Acute posthemorrhagic anemia - Acute kidney failure, unspecified - Chronic obstructive pulmonary disease, unspecified - Nonspecific elevation of levels of transaminase and lactic acid dehydrogenase [LDH] - Other acute postprocedural pain - Nonspecific elevation of levels of transaminase and lactic acid dehydrogenase [LDH] - Spinal stenosis, site unspecified [email or web address]
[2018-09-25] MEDS ORDERED: METOPROLOL TART25 MG PO (12:12)
[2018-09-25] MEDS ORDERED: OXYCODONE HCL10 MG PO (12:12)
--- NOTE | 2018-09-25 15:24 | NUR ---
Medications reconciled with pharmacy records and patient discharge orders from 2 weeks ago
--- NOTE | 2018-09-25 17:12 | NUR ---
PATIENT BROUGHT TO CCU UNIT FROM ER VIA STRETCHER. PATIENT TRANSFERED TO CCU BED INDEPENDENTLY. VITAL SIGNS TAKEN AND ADMISSION ASSESSMENT COMPLETE. PATIENT BELONGINGS RECORDED, NO WALLET/VALUABLES WITH PATIENT. IV FLUIDS INFUSING AT 125 MLS/HR. PATIENTS SON IN ROOM AND HELPING PROVIDE MEDICAL HX FOR ASSESSMENT.
--- NOTE | 2018-09-25 17:18 | NUR ---
TWO RIGHT LEG WOUND DRESSINGS CHANGED. PATIENT HAS LARGE WOUND ON RIGHT TONY AND LARGE WOUND ON RIGHT CALF. BOTH DRESSINGS WERE CHANGED BY PATIENTS SON AND CAREGIVER, HOA. PATIENTS RIGHT KNEE IS WARM AND PEDAL PULSE IS FAINT. BOTH WOUNDS WERE PACKED WITH GAUZE THAT WAS SOAKED IN SALINE. BOTH WOUNDS WERE WRAPPED WITH ABSORBENT PADS AND COBAN. PATIENT TOLERATED THE DRESSING CHANGE WELL. PATIENT DENIES ANY FURTHER NEEDS AT THIS TIME, CALL LIGHT WITHIN REACH.
--- NOTE | 2018-09-25 18:03 | NUR ---
PATIENT RESTING IN BED AT THIS TIME, FINISHING HIS DINNER. PT GIVEN PO POTASSIUM. PT IS HARD OF HEARING. PT REQUESTING BANDAGE ON LOWER RIGHT LEG TO BE LOOSENED SOME. CONTINUE TO MONITOR.
--- NOTE | 2018-09-25 18:38 | NUR ---
PATIENT ORTHOSTATIC POSITIVE AND THESE RESULTS VERBALLY TOLD TO DR. COTTER. NO FURTHER ORDERS AT THIS TIME.
--- NOTE | 2018-09-25 20:43 | NUR ---
PT SLEEPING WHEN IN TO SEE PT. SATS DEC TO 84% AND NOTED TO HAVE EPISODE OF APNEA THEN SATS UP TO 90'S. AWAKENED TO LOUD VOICE, IS HARD OF HEARING. STATES HE DOES NOT KNOW OF ANY HX OF SLEEP APNEA. BRIEFLY BROUGHT UP POTENTIAL NEED FOR SLEEP STUDY IN FUTURE. BREATH TONES ARE SOMEWHAT DIM WITH EXP WHEEZES THROUGHOUT. DRSG TO R LOWER LEG INTACT WITH ONEIL WRAP COVERING IT. VOIDING WELL.
--- NOTE | 2018-09-25 22:34 | NUR ---
PT SLEEPING, HR UPPER 90'S. CONT TO HAVE EPISODES OF SLEEP APNEA.
--- NOTE | 2018-09-26 00:18 | NUR ---
HAS BEEN MOSTLY SLEEPING. NO C/O. ASSESSMENT DONE.
--- NOTE | 2018-09-26 01:23 | NUR ---
AWAKE TO VOID. NO C/O.
--- NOTE | 2018-09-26 03:36 | NUR ---
STATED FEELING BLOATED AND FILLING UP WITH GAS, NEEDING TO HAVE BM. AFTER CHECKING BP AND HR ALOWED TO AMB TO BR. PT HAD VERY LARGE BM AND FEELS BETTER. HR STATBE WHILE UP, DENIES DIZZYNESS OR SOB. BREATH TONES ARE SOMEWHAT TIGHT WITH SOFT EXP WHEEZES.
--- NOTE | 2018-09-26 05:00 | NUR ---
SLEEPING. NO CHANGE.
--- NOTE | 2018-09-26 06:14 | NUR ---
FELL BACK TO SLEEP AFTER LAB DRAW. BP88/80. NO CHANGE.
--- NOTE | 2018-09-26 06:56 | NUR ---
AWAKENED FOR MEDS, NO C/O.
--- NOTE | 2018-09-26 11:00 | NUR ---
PATIENTS DRESSING CHANGED ON BOTH WOUNDS, THE RIGHT TONY AND RIGHT CALF. WOUNDS PACKED WITH SALINE SOAKED GAUZE AND INSULATED WITH ABSORBENT PAD.
--- NOTE | 2018-09-26 12:54 | NUR ---
PATIENT SCHEDULED FOR PRE-OP APPOINTMENT TODAY AT 1600 FOR TOMORROW'S SCHEDULED SKIN GRAFT APPT. DAY SURGERY RN INFORMED OF PATIENT'S ADMISSION TO HOSPITAL. WILL FURTHER UPDATE SURGERY DEPARTMENT IF PATIENT IS TO BE D/C TODAY OR NOT AND IF PATIENT WILL STILL BE SCHEDULED FOR SKIN GRAFT APPOINTMENT OR NOT. PT UPDATED ON THIS.
--- NOTE | 2018-09-26 13:27 | NUR ---
DR COTTER ASKING US TO WALK PATIENT AND SEE HOW HE DOES.
--- NOTE | 2018-09-26 13:38 | EKG ---
[facility] [address] [place] [address] Signed Atrial fibrillation with rapid ventricular response Nonspecific ST and T wave abnormality Abnormal ECG When compared with ECG of 06-SEP-2018 09:54, Nonspecific T wave abnormality, worse in Anterolateral leads Confirmed by SAWYER COTTER MD ([id number]) on 09/26/2018 1:38:30 PM Electronically Signed By: SAWYER COTTER MD 09/26/18 1338 PATIENT NAME: KORIN DESHPANDE AUBRIE Electrocardiogram DATE OF : 38 PHYSICIAN: SAWYER COTTER MD REPORT #: [id number] REPORT IS CONFIDENTIAL AND NOT TO BE RELEASED WITHOUT AUTHORIZATION
--- NOTE | 2018-09-26 14:28 | NUR ---
ASKED BY DR. COTTER TO WALK PATIENT TO SEE HOW HR AND BP RESPOND TO AMBULATION. PT'S BP NOTED TO BE LOW, AROUND 90 SYSTOLIC. REPEAT BP TAKEN AND AGAIN FOUND TO BE LOW. MANUAL BP ON LEFT ARM 92/60 AND MANUAL ON RIGHT ARM 90/62. PT'S SON AT BEDSIDE. PT SAT AT EDGE OF BED AND BP THEN DROPPED TO 80/54. PT DENIES DIZZINESS BUT STATES HE DOESN'T FEEL 100% EITHER, BUT NO WHERE BAD OR DIZZY HE DID A FEW DAYS AGO AT HOME WHEN HE FELL. WILL UPDATE DR. COTTER AT THIS TIME.
--- NOTE | 2018-09-26 14:59 | NUR ---
TALKED WITH DR. COTTER ABOUT PATIENT'S HYPOTENSION. PATIENT WILL NOT BE D/C HOME TODAY AND WILL CONTINUE TO RECEIVE IV HYDRATION. PATIENT WILL BE TRANSFERRED TO MED/SURG ON TELEMETRY. PATIENT AND SON WILL BE UPDATED.
--- NOTE | 2018-09-26 16:39 | NUR ---
REPORT GIVEN TO IDALIA LOPEZ ON MED/SURG. IVF CONTINUE AT 150 ML/HR.
--- NOTE | 2018-09-26 17:17 | NUR ---
IN ROOM TO ASSESS PT. BP LOW 84\43 AND 84\[address] COTTER, HE GOT APPROX SAME. ORDERED 250 BOLUS LR, THEN REASSESS.
--- NOTE | 2018-09-26 17:56 | NUR ---
RECHECKED BP, 96\56. PT REMAINS ASYMPTOMATIC.
--- NOTE | 2018-09-26 18:08 | NUR ---
PT TO FLOOR FROM CCU THIS EVENING. BP LOW UPON ARRIVAL AT 84\43. GIVEN 250 BOLUS AND REASSESSED, 96\56. PT ASYMPTOMATIC. RATES PAIN IN RLE 8\10 GIVEN TYLENOL UNTIL NORCO AVAILABLE.
--- NOTE | 2018-09-26 19:10 | NUR ---
REPORT RECEIVED FROM DAY SHIFT RN. PT IN BED WATCHING TV, ALERT AND ORIENTED. FOOT SCD'S IN PLACE. NO REQUESTS AT THIS TIME. CALL LIGHT IN REACH.
--- NOTE | 2018-09-26 21:45 | NUR ---
ASSESSMENT COMPLETE. ORTHOSTATIC BP COMPLETE, PT STEADY ON HIS FEET, C/O FEELING WEAK. RN IN ROOM ADMINISTERING MEDICATIONS. ASSESSMENT COMPLETE. PRN TYLENOL GIVEN FOR C/O 7/10 KNEE PAIN. NO OTHER REQUESTS AT THIS TIME, CALL LIGHT IN REACH.
--- NOTE | 2018-09-26 21:48 | NUR ---
PATIENTS VITALS TAKEN AND RECORDED. PATIENTS BP IS BELOW PARAMETERS. PLACED CALL TO MD. DR COTTER GAVE VERBAL ORDER TO GIVE LOPRESSOR. VERIFIED ORDER USING THE READBACK METHOD. PATIENTS ORTHOSTATICS COMPLETED AND RECORDED. PATIENT DENIED BEING DIZZY OR LIGHT HEADED. PATIENT ONLY COMPLAINED OF WEAKNESS. PATIENT WAS ALSO INCONTINENT OF URINE. EVENING MEDICATIONS GIVEN PER ORDER. TYLENOL GIVEN FOR PAIN IN HIS RIGHT LEG. NO FURTHER NEEDS NOTED. CALL LIGHT IN REACH.
--- NOTE | 2018-09-27 00:34 | NUR ---
PT AMB TO BR WITH STANDBY ASSIST TO HAVE LARGE BM, INCREASED SOB WITH EXERTION. PT STILL C/O BEING "SO DAMN WEAK". BACK TO BED, FOOT SCD'S IN PLACE. PRN PAIN MED GIVEN FOR C/O 9 RIGHT LEG PAIN. PT C/O SEVERE DRY MOUTH AND NOSE. PINK FISH PROVIDED FOR NOSE. FRESH ICE WATER PROVIDED. NO OTHER REQUESTS AT THIS TIME, CALL LIGHT IN REACH.
--- NOTE | 2018-09-27 01:40 | NUR ---
PT STILL C/O SEVERE DRY MOUTH AND DRY NOSE. NASAL SPRAY PROVIDED. DENTURES CLEANED. CHAPSTICK PROVIDED. GLYCERINE SWABS PROVIDED. PT STATES PAIN IS STILL 9/10, PT OFFERED ICE/HOT PACK, PT IS REFUSING ADDITIONAL INTERVENTIONS TO PROMOTE COMFORT. CALL LIGHT IN REACH.
--- NOTE | 2018-09-27 04:36 | NUR ---
PT RESTING IN BED, "DOZING ON AND OFF". ASSESSMENT COMPLETE. PT STILL C/O 01/30 RIGHT KNEE PAIN. STATES "I'M JUST GOING TO LEAVE IT BE". REFUSES ADDITIONAL INTERVENTIONS. CALL LIGHT IN REACH.
--- NOTE | 2018-09-27 05:45 | NUR ---
PT HAS HAD A RESTLESS NIGHT, STATES HE'S "DOZED ON AND OFF". C/O SEVERELY DRY NOSE AND MOUTH. SALINE SPRAY PROVIDED FOR DRY NOSE. CHAPSTICK, GLYCERIN SWABS, AND ORAL CARE FOR DRY MOUTH. PT C/O 9/10 RIGHT KNEE PAIN THAT IS NOT RELIEVED WITH PRN TYLENOL OR NORCO. PT WAS OFFERED A HOT/COLD PACK AND/OR TO ELEVATE RLE BUT REFUSED. AMBULATES WITH SBA AND FWW, STEADY ON HIS FEET BUT INCREASED SOB NOTED WITH EXERTION. BP'S HAVE BEEN CONSISTENTLY LOW, MD AWARE. PT WEARS FOOT PUMP SCD'S, STATES THEY HELP WITH HIS JUMPY FEET. DRESSING ON RLE CDI.
--- NOTE | 2018-09-27 06:53 | NUR ---
PATIENTS ORHOSTATICS COMPLETED AND RECORDED. PATIENT DENIED BEING DIZZY OR LIGHT HEADED DURING VITALS. PATIENT IS NOW IN RECLINER RESTING. PATIENT COMPLAINS OF PAIN BUT DENIES THE NEED FOR MEDICATION. PATIENT REFUSES ALL INTERVENTIONS. PATIENT DENIES ANY NEEDS. CALL LIGHT IN REACH.
--- NOTE | 2018-09-27 08:29 | NUR ---
PT IS SITTING UP IN RECLINER FOR BREAKFAST, ATE 100%, IN GOOD SPIRITS, STATES PAIN IN R LEG/KNEE MUCH BETTER TODAY, DRSG IS CDI, GOOD CMS TO FOORT. IVF PATENT, SCHEDULED MEDS TAKEN. DENIES ANY NEEDS. CALL LIGHT IN EASY REACH.
--- NOTE | 2018-09-27 09:24 | NUR ---
CALLED DR BLACKMAN OFFICE TO RESCHEDULE PROCEDURE AND THEN CALLED HIS SON TO LET HIM KNOW ABOUT IT. SON WILL BE IN AROUND TWO TODAY. ALSO HIS PHONE NUMBER IS INCORRECT ON HIS FACE SHEET. IT IS [phone]
--- NOTE | 2018-09-27 11:00 | NUR ---
AMBULATED LOOP AROUND NURSES WITH SBA. TOLERATED WELL.
[2018-09-27] MEDS ORDERED: METOPROLOL SUCC50 MG PO (13:50)
--- NOTE | 2018-09-27 14:16 | NUR ---
DRSG CHANGED TO RLE, CLEANED WITH NS AND PACKED WITH SALINE SOAKED GAUGZE. ONEIL WRAP TO PROTECT. PT TOLERATED WELL. DENIES NEED FOR PAIN MEDICATION. LOOKING FORWARD TO LUNCH.
--- NOTE | 2018-09-27 15:01 | NUR ---
DC INSTRUCTIONS REVIEWED WITH PT. VERBALIZES UNDERSTANDING, FOLLOWUP APPOINTMENTS GIVEN. TIFFANY DC. SON HER TO GIVE RIDE HOME. NO QUESTIONS. IN GOOD SPIRITS, PLEASED WITH CARE.
[2018-09-28] MEDS ORDERED: KLOR-CON 1010 MEQ PO (14:19)
[2018-09-28] MEDS ORDERED: METOPROLOL TART25 MG PO (14:20)
[2018-09-28] MEDS ORDERED: FUROSEMIDE20 MG PO (14:23)
[2018-09-28] MEDS ORDERED: OXYCODONE HCL10 MG PO (14:23)
[2018-09-28] MEDS ORDERED: WARFARIN SODIU2.5 MG PO (14:25)
== END 2018-09-27 15:00 | disposition home or self-care (01) ==
LOC: ED 10:06 → CCU 10:08 → MS 09-26 16:55
PROVIDERS: ADMIT Internal Medicine
DX: E86.0 Dehydration (principal); I95.1 Orthostatic hypotension; E87.6 Hypokalemia; E87.1 Hypo-osmolality and hyponatremia; J44.9 Chronic obstructive pulmonary disease, unspecified; G89.29 Other chronic pain; M54.5 Low back pain; M48.00 Spinal stenosis, site unspecified; I48.2 Chronic atrial fibrillation; E79.0 Hyperuricemia without signs of inflammatory arthritis and tophaceous disease; I25.10 Atherosclerotic heart disease of native coronary artery without angina pectoris; E80.6 Other disorders of bilirubin metabolism; S80.11XD Contusion of right lower leg, subsequent encounter; N17.9 Acute kidney failure, unspecified; N40.0 Benign prostatic hyperplasia without lower urinary tract symptoms; E03.9 Hypothyroidism, unspecified; Z87.891 Personal history of nicotine dependence; Z66 Do not resuscitate; Z79.891 Long term (current) use of opiate analgesic; Z95.5 Presence of coronary angioplasty implant and graft; Z79.51 Long term (current) use of inhaled steroids; Z79.899 Other long term (current) drug therapy; Z88.8 Allergy status to other drugs, medicaments and biological substances; Z91.041 Radiographic dye allergy status
CPT/HCPCS: 36415; 71045; 80048; 80053; 83735; 83880; 84484; 85025; 93005; 93010; 94640; 94760; 96361; 96366; 96372; 99285-25; 99406; G0378; J1650; J3480; J7120

== ENCOUNTER 2019-08-18 02:15 | Inpatient (IN) | payer MEDICARE, OTHER ==
[~2019-08-18] VITALS: Ht 172.7 cm; Wt 108.3 kg
[~2019-08-18 02:15] MED LIST changes: +LASIX40 MG PO; +OXYCODONE HCL10 MG PO
--- OUTSIDE RECORDS SUMMARY | 2019-08-18 02:18 | XMS ---
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 EWen. VISIT COUNT (12 MO.) 4 [facility] TOTAL 4 NOTE: Visits indicate total known visits. ED/UCC VISIT TRACKING (12 MO.) 08/18/2019 02:15 [facility] TYPE: Emergency COMPLAINT: - ABD PAIN,SOB 09/25/2018 10:07 [facility] TYPE: Emergency COMPLAINT: - DIZZINESS/URINE PROBLEM 09/03/2018 10:52 [facility] TYPE: Emergency COMPLAINT: - LEG PAIN/SWELLING, POSS INFECTION 08/31/2018 19:42 [facility] TYPE: Emergency COMPLAINT: - FALL DIAGNOSES: - Other oysterman (current) drug therapy - Hyperlipidemia, unspecified - Chronic obstructive pulmonary disease, unspecified - Unspecified atrial fibrillation - Essential (primary) hypertension - Fall (on) (from) unspecified stairs and steps, initial encoun - 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 - Pain in [...] initial encounter INPATIENT VISIT TRACKING (12 MO.) 09/25/2018 10:08 [facility] TYPE: Observation COMPLAINT: - SYNCOPE DIAGNOSES: - Other disorders of bilirubin metabolism - Low back pain - Benign prostatic hyperplasia without lower urinary tract symp - Personal history of nicotine dependence - Hypothyroidism, unspecified - Hypokalemia - Acute kidney failure, unspecified - Allergy status to other drugs, medicaments and biological sub - Dehydration - Hyperuricemia without signs of inflammatory arthritis and top - Syncope and collapse - Chronic obstructive pulmonary disease, unspecified - Chronic atrial fibrillation - [facility] (current) use of opiate analgesic - 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 truck 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 - Hypo-osmolality and hyponatremia - Orthostatic hypotension - Other chronic pain - Other oysterman (current) drug therapy - Atherosclerotic heart disease of [place] coronary artery witho - Presence of coronary angioplasty implant and graft - Radiographic dye allergy status - Do not resuscitate - Contusion of right lower leg, subsequent encounter - Spinal stenosis, site unspecified 09/05/2018 11:31 [facility] TYPE: Medical Surgical COMPLAINT: - LEG HEMATOMA/PAIN DIAGNOSES: - Presence of coronary angioplasty implant and graft - Other long-term (current) drug therapy - Body mass index (BMI) 35.0-35.9, adult - Laceration without foreign body, right lower leg, initial enc - Atherosclerotic heart disease of [place] coronary artery witho - Nicotine dependence, chewing tobacco, uncomplicated - Chronic atrial fibrillation - Unspecified fall, initial encounter - Hypotension, unspecified - Adverse effect of 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, initial encounter - Other long-term (current) drug therapy - 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 - Hyperlipidemia, unspecified - Other chronic pain - Unspecified place in unspecified non-institutional (private) - Hyperlipidemia, unspecified - Constipation, unspecified - Body mass index (BMI) 35.0-35.9, adult - Other chronic pain - Nicotine dependence, chewing tobacco, uncomplicated - Contusion of right lower leg, initial encounter - Chronic kidney disease, stage 3 (moderate) - Acute posthemorrhagic anemia - Hypotension, unspecified - Presence of coronary angioplasty implant and graft - Atherosclerotic heart disease of [place] coronary artery witho - 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
[2019-08-18] MEDS ORDERED: TRAMADOL HCL50 MG PO (05:02)
[2019-08-18] MEDS ORDERED: POTASSIUM CHLO20 ME2 PO (05:02)
[2019-08-18] MEDS ORDERED: METOPROLOL TART25 MG PO (05:05)
--- NOTE | 2019-08-18 21:02 | EKG ---
[facility] [address] [facility] [facility] [place] [address] Signed Atrial fibrillation with rapid ventricular response Nonspecific ST abnormality Abnormal ECG When compared with ECG of 29-SEP-2018 05:47, No significant change was found Confirmed by SAWYER COTTER MD ([id number]) on 08/18/2019 9:01:44 PM Electronically Signed By: SAWYER COTTER MD 08/18/192101 PATIENT NAME: KORIN DESHPANDE AUBRIE Electrocardiogram DATE OF : 38 PHYSICIAN: SAWYER COTTER MD REPORT #: [id number] REPORT IS CONFIDENTIAL AND NOT TO BE RELEASED WITHOUT AUTHORIZATION
--- NOTE | 2019-08-19 11:53 | HP ---
[facility] [address] [place], [place] [address] Signed ADMISSION DATE: 08/18/2019 REASON FOR ADMISSION: Bowel obstruction, likely related to incarcerated hernia with multiple medical problems. HISTORY OF PRESENT ILLNESS: This morbidly obese 79-year-old white man, presenting to the emergency room and evaluated by Dr. 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 The patient had significant vomiting and some abdominal pain. He is known to have multiple abdominal wall hernias. A CT scan was performed under the direction of Dr. Fisher and at approximately 3:45 a.m., which showed an abdominal wall hernia to the right of a midline in the mid abdomen that appears to have bowel loop within it and what may be proximal bowel obstruction, though the dilation of bowel is not profound. Attempts at reduction of this hernia in the emergency room by Dr. Fisher were unsuccessful. He additionally has a left of midline incisional hernia of fat only, which appears to be asymptomatic. His situation is complicated by the underlying medical problems he has including congestive heart failure, atrial fibrillation, and chronic anticoagulation with Coumadin. His INR is 2.3. Last year, the patient is cared for by Dr. Isaias Mcrae for a right leg wound requiring debridement and prolonged wound care. Other details of that intervention are found elsewhere in the medical record, that is not currently a problem. He does have chronic peripheral edema, however. His initial chest x-ray did not show air-fluid levels or anything of that sort. A chest x-ray following placement of nasogastric tube showed good position and other findings. He does appear to have some cardiomegaly, but no effusion, only of mild interstitial edema. LABORATORY DATA: His labs are remarkable for normal white count of 9.5, hematocrit of 45.4, platelet count 236,000. His potassium is low at 3.1. Electrolytes also abnormal, otherwise including chloride of 94. His creatinine was 1.36, glucose 121. Troponin less than 0.01. Urinalysis normal. Electronically Signed By: AWAIS STOUT MD 08/19/19 1153 PATIENT NAME: KORIN DESHPANDE HISTORY AND PHYSICAL DATE OF : 38 REPORT #: [id number] PHYSICIAN: AWAIS STOUT MD PCP: ALBANIA BAGLEY MD REPORT IS CONFIDENTIAL AND NOT TO BE RELEASED WITHOUT AUTHORIZATION [facility] [address], [place] [address] Signed PAST MEDICAL HISTORY: Significant for history of cardiac catheterization with cardiac arrest from dye infusion, underlying hypertension, congestive heart failure, chronic obstructive pulmonary disease, and chronic anticoagulation with Coumadin. He is known to have atrial fibrillation as well as chronic obstructive pulmonary disease, chronic renal disease. He has suffered diverticulitis, requiring sigmoid resection, staged ultimately with takedown of colostomy from what I can gather. He is a former smoker and uses alcohol only occasionally. He additionally has had cardiac stents x5, left knee surgery, appendectomy, and cholecystectomy. He is considered to have severe anaphylactic reaction to gadolinium containing contrast material as well as iopamidol contrast. MEDICATIONS: His current medications include tamsulosin, tramadol, potassium chloride, Coumadin 2.5 mg daily, Lasix 40 mg daily, metoprolol 25 mg at bedtime, Synthroid unknown dose daily, and allopurinol daily. REVIEW OF SYSTEMS: He feels reasonably well at this time and denies any abdominal pain. Nasogastric tube is well tolerated. He does not have much out in the nasogastric tube. He denies any chest pain. Has mild congestion. He has no symptoms suggestive COVID-19 (current pandemic). PHYSICAL EXAMINATION: GENERAL: This is an obese white male with a nasogastric tube showing relatively thin, pink fluid within the nasogastric tube. NECK: Trachea is midline. CHEST: Shows mild expiratory wheeze. HEART: Irregularly irregular. ABDOMEN: Quite markedly enlarged and obese. There is a palpable hernia in the region of the umbilicus. A long midline incision is noted. The hernia is nontender, but non-reducible, it is easily discerned. There is another hernia not far, that appears to be to the left of the midline somewhat. There is a left lower quadrant scar from prior colostomy no doubt. There is no sign of hernia at that site. EXTREMITIES: Show peripheral edema. A scaly right anterior calf wound is noted and appears not to be infected. Electronically Signed By: AWAIS STOUT MD 08/19/19 1153 PATIENT NAME: KORIN DESHPANDE HISTORY AND PHYSICAL DATE OF : 38 REPORT #: [id number] PHYSICIAN: AWAIS STOUT MD PCP: ALBANIA BAGLEY MD REPORT IS CONFIDENTIAL AND NOT TO BE RELEASED WITHOUT AUTHORIZATION [address] [address] Signed LABORATORY STUDIES: Show white count of 9.5, hematocrit of 45.4, platelets 236,000. Chem profile with a potassium 3.1, chloride 94, creatinine 1.36, bilirubin 1.7. BNP 193. INR is 2.3. Urinalysis is negative. I have reviewed the CT scan and plain x-rays in detail. ASSESSMENT: The patient has an incarcerated incisional hernia in the region of the umbilicus. This includes a segment of bowel loop; it does not appear ischemic and he does not have local tenderness at this time. He is considered to have bowel obstruction related to that, I am not entirely certain of that based on the images I see. He did have nausea, vomiting, and abdominal pain. His current working diagnosis is incarcerated hernia with bowel causing small-bowel obstruction. He has been improved by nasogastric tube decompression. Another separate hernia with fat only is noted.It is asymptomatic. I gather he has had these hernias long-standing-- only recently having these symptoms. He is of much increased risk of operation given his underlying congestive heart failure and other underlying medical problems. Right now, he does not appear to have ischemic bowel. I would recommend continued nasogastric tube decompression, IV fluids, and I will consult Dr. Self, hospitalist on-call for his assessment and evaluation of this patient as regard to his congestive heart failure and appropriate medical management. Reversal of his anticoagulation would be necessary prior to operation. Rapid reversal with fresh frozen plasma could be undertaken. However, the urgency of the operation is not as acute as that... plasma infusion may exacerbate underlying congestive heart failure issues and vitamin K reversal may be reasonable. Optimization of his medical status prior to operative intervention would absolutely be beneficial to minimize his overall risk. We will confer with Dr. Self regarding medical optimization in that way. MD THAIS Tomlinson/TOE /[id number] Electronically Signed By: AWAIS STOUT MD 08/19/19 1153 PATIENT NAME: KORIN DESHPANDE HISTORY AND PHYSICAL DATE OF : 38 REPORT #: [id number] PHYSICIAN: AWAIS STOUT MD PCP: ALBANIA BAGLEY MD REPORT IS CONFIDENTIAL AND NOT TO BE RELEASED WITHOUT AUTHORIZATION [address] [address] Signed cc: MD Albania Handy MD Copies: SOPHIE FISHER MD, JONATHAN MD ~ Electronically Signed By: AWAIS STOUT MD 08/19/19 1153 PATIENT NAME: KORIN DESHPANDE HISTORY AND PHYSICAL DATE OF : 38 REPORT #: [id number] PHYSICIAN: AWAIS STOUT MD PCP: ALBANIA BAGLEY MD REPORT IS CONFIDENTIAL AND NOT TO BE RELEASED WITHOUT AUTHORIZATION
[2019-08-20] MEDS ORDERED: VENTOLIN HFA18 GM INH (11:50)
[2019-08-20] MEDS ORDERED: ADVAIR 250-501 EACH INH (11:51)
[2019-08-20] MEDS ORDERED: SPIRIVA18 MCG INH (11:55)
[2019-08-21] MEDS ORDERED: METOPROLOL TART25 MG PO ×2 (14:02→14:03)
--- NOTE | 2019-08-22 08:35 | DS ---
[facility] [address] [address] Signed ADMISSION DATE: 08/18/2019 DISCHARGE DATE: 08/21/2019 ADDENDUM: The patient's discharge summary has been completed already. This is an addendum to other important details at discharge. He was assessed by Dr. Cotter and thought worthy of an oxygen qualifying test. With ambulation in the hallway off oxygen, his O2 saturations declined to 81% off oxygen. On that basis, he qualifies for home oxygen therapy. It has been determined the 3 liters nasal cannula oxygen continuous flow will be appropriate for him at discharge. This may be modified as time goes on. MD THAIS Tomlinson/MODL /[id number] cc: Sawyer Cotter MD Copies: SAWYER COTTER MD ~ Electronically Signed By: AWAIS STOUT MD 08/22/19 0835 PATIENT NAME: KORIN DESHPANDE DISCHARGE SUMMARY DATE OF : 38 REPORT #: [id number] PHYSICIAN: AWAIS STOUT MD PCP: ALBANIA BAGLEY MD REPORT IS CONFIDENTIAL AND NOT TO BE RELEASED WITHOUT AUTHORIZATION
--- NOTE | 2019-08-22 08:35 | DS ---
[facility] [address] [place], [place] [address] Signed ADMISSION DATE: 08/18/2019 DISCHARGE DATE: 08/21/2019 REASON FOR ADMISSION: This morbidly obese 79-year-old white man has numerous medical problems and presents to the emergency room for abdominal pain, nausea and vomiting. 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 Fisher at approximately 3:45 a.m. showing abdominal wall hernia to the right of the midline in the mid abdomen that appeared to have a bowel loop within it and some proximal bowel dilation suggestive of obstruction. Additionally, he had a fascial defect cephalad into the left of the midline with fat. He was admitted for further evaluation and care on the basis of his incarcerated abdominal wall hernia with bowel that was non-reducible. PERTINENT PHYSICAL EXAMINATION: GENERAL: Showed a morbidly obese white man with a nasogastric tube showing relatively thin pink fluid. NECK: Trachea is midline. CHEST: Showed mild expiratory wheeze. HEART: Irregularly irregular consistent with atrial fibrillation. ABDOMEN: Quite markedly enlarged and obese. There is a palpable hernia in the region of the umbilicus. A long midline incision is noted as well as the left lower quadrant incision. The hernia which was not reducible at that time was nontender. Another hernia of likely fat consistent with CT scan was noted to the left of the midline, which was nontender as well. EXTREMITIES: Show peripheral edema and there is a scaly right anterior calf wound noted, which appeared not to be infected from prior hospitalization related to a fall and hematoma with necrosis. LABORATORY STUDIES: Showed a white count of 9.5, hematocrit of 45.4, platelets 236,000. Chem profile with a potassium of 3.1, creatinine of 1.36, BNP of 193, INR is 2.3. HOSPITAL COURSE: The patient had been chronically anticoagulated for his atrial fibrillation with Coumadin thus accounting for his elevated INR of 2.3. Operative management would be unwise with such anticoagulation. He was given bedrest, IV fluids nasogastric decompression and consultation undertaken with the hospitalist. He had numerous comorbidities some of which have been mentioned. [employer] complication calculator predicted a 27% Electronically Signed By: AWAIS STOUT MD 08/22/19 0835 PATIENT NAME: KORIN DESHPANDE DISCHARGE SUMMARY DATE OF : 38 REPORT #: [id number] PHYSICIAN: AWAIS STOUT MD PCP: ALBANIA BAGLEY MD REPORT IS CONFIDENTIAL AND NOT TO BE RELEASED WITHOUT AUTHORIZATION [facility] [address] [place], [place] [address] Signed rate of serious complication related to his underlying medical problems. The hernia was initially not reducible, but by the following morning after initiation of vitamin K for reversal of his INR to allow for urgent operation, the hernia did become reducible and his bowel obstruction symptoms resolved entirely. An abdominal x-ray confirmed no sign of bowel obstruction at that point. He was maintained with bronchodilator therapy and continued observation. His nasogastric tube was removed and he was advanced ultimately to a regular diet. Given the current epidemic of coronavirus and a prohibition on all but urgent and emergent cases and given the high probability he would require extensive and prolonged hospitalization following an anesthetic, it was deemed advisable to defer definitive operation of the hernia for the time being. Multiple attempts to confer with his son Malcolm were unsuccessful. He was noted to have improving oxygenation with his bronchodilator therapy and cessation of IV fluids. He is discharged at this time with reducible hernias. He understands that if he should be feeling unwell to place himself in a supine position and manually reduce the hernia (as he knows how to at this point.) We will revisit the idea of elective hernia operation as an outpatient in October, hopefully. It is nearly August 21. By then, the pandemic likely will have crested and declined allowing for less strain on local resources should he require prolonged hospitalization with repair. He also understands that if he should have recurrent symptoms and hernia is not reducible that emergent operation may well be required. The patient has disinclined operation at this time if at all possible as well based on his underlying poor health and perioperative risks. DISCHARGE MEDICATIONS: 1. Tamsulosin 0.4 mg p.o. at bedtime. 2. Synthroid 50 mcg p.o. daily. 3. Allopurinol 300 mg p.o. daily. 4. Lasix 40 mg p.o. daily. 5. Coumadin (warfarin sodium) 2.5 mg p.o. daily. 6. Tramadol 50 mg 1-2 p.o. q.6 hours as needed for pain. 7. Potassium chloride 20 mEq p.o. daily. 8. Metoprolol 25 mg 1.5 tabs p.o. at bedtime. Electronically Signed By: AWAIS STOUT MD 08/22/19 0835 PATIENT NAME: KORIN DESHPANDE DISCHARGE SUMMARY DATE OF : 38 REPORT #: [id number] PHYSICIAN: AWAIS STOUT MD PCP: ALBANIA BAGLEY MD REPORT IS CONFIDENTIAL AND NOT TO BE RELEASED WITHOUT AUTHORIZATION [facility] [address] [facility] [place] [place] [address] Signed 9. Ventolin inhaler 18 g two puffs q.4 hours as needed for shortness of breath. 10. Advair Diskus 250/50 one inhalation b.i.d. as needed. 11. Tiotropium bromide (Spiriva) 18 mcg daily sporadic use. DISCHARGE DIAGNOSES: 1. Small bowel obstruction related to incarcerated hernia with subsequent reduction and resolution of bowel obstruction. 2. Numerous medical comorbidities including chronic atrial fibrillation with anticoagulation. 3. Morbid obesity. 4. Renal insufficiency. 5. Probable sleep apnea with chronic hypoxia. 6. History of diverticular resection with diversion and subsequent takedown of colostomy. 7. Right leg wound with necrosis status post debridement related to fall (Dr. Isaias Mcrae). 8. Hypertension. 9. Hypothyroidism. 10. Benign prostatic hypertrophy, symptomatic. 11. Recurrent abdominal wall hernias. MD THAIS Tomlinson/MODL /[id number] cc: MD Chelsi Handy MD Copies: SOPHIE FISHER MD, LOHITH VEERAPPA MD ~ Electronically Signed By: AWAIS STOUT MD 08/22/19 0835 PATIENT NAME: KORIN DESHPANDE DISCHARGE SUMMARY DATE OF : 38 REPORT #: [id number] PHYSICIAN: AWAIS STOUT MD PCP: ALBANIA BAGLEY MD REPORT IS CONFIDENTIAL AND NOT TO BE RELEASED WITHOUT AUTHORIZATION
== END 2019-08-21 15:10 | disposition home or self-care (01) | DRG 394 ==
LOC: ED 02:15 → MS 02:16
PROVIDERS: ADMIT Surgery
DX: K43.0 Incisional hernia with obstruction, without gangrene (principal); I13.0 Hypertensive heart and chronic kidney disease with heart failure and stage 1 through stage 4 chronic kidney disease, or unspecified chronic kidney disease; I48.19 Other persistent atrial fibrillation; N18.9 Chronic kidney disease, unspecified; I50.9 Heart failure, unspecified; J42 Unspecified chronic bronchitis; N40.0 Benign prostatic hyperplasia without lower urinary tract symptoms; E03.9 Hypothyroidism, unspecified; E66.01 Morbid (severe) obesity due to excess calories; E79.0 Hyperuricemia without signs of inflammatory arthritis and tophaceous disease; I25.10 Atherosclerotic heart disease of native coronary artery without angina pectoris; G47.30 Sleep apnea, unspecified; R09.02 Hypoxemia; R79.1 Abnormal coagulation profile; Z95.5 Presence of coronary angioplasty implant and graft; Z79.01 Long term (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; Z79.891 Long term (current) use of opiate analgesic; Z87.891 Personal history of nicotine dependence; Z79.899 Other long term (current) drug therapy; Z91.041 Radiographic dye allergy status; Z68.36 Body mass index [BMI] 36.0-36.9, adult
CPT/HCPCS: 36415; 51702; 71045; 74018; 74176; 80048; 80053; 80069; 81001; 83735; 83880; 84484; 85025; 85610; 93005; 93010; 94640; 94760; 94761; 99285-25; J0131; J1940; J2405; J3430; J3475; J3480; J7060; J7121

== ENCOUNTER 2019-11-24 05:33 | Emergency (ER) | payer MEDICARE, OTHER ==
[~2019-11-24] VITALS: Ht 172.7 cm; Wt 106.6 kg
[~2019-11-24 05:33] MED LIST changes: +POTASSIUM CHLO20 ME2 PO; +TRAMADOL HCL50 MG PO
--- OUTSIDE RECORDS SUMMARY | 2019-11-24 05:36 | XMS ---
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 [facility] VISIT COUNT (12 MO.) 2 [facility] TOTAL 2 NOTE: Visits indicate total known visits. 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 - Hyperuricemia without signs of inflammatory arthritis and top - Unspecified chronic bronchitis - Benign prostatic hyperplasia without lower urinary tract symp - Other persistent atrial fibrillation - Hypertensive heart and chronic kidney disease with heart fail - Abnormal coagulation profile - Radiographic dye allergy status - Morbid (severe) obesity due to excess calories - Hypothyroidism, unspecified - Chronic kidney disease, unspecified - terminal computer operator (current) use of opiate analgesic - Other half-way (current) drug therapy - Heart failure, unspecified - Sleep apnea, unspecified - Hypoxemia - Personal history of nicotine dependence - Incisional hernia with obstruction, without gangrene [email or web address]
== END 2019-11-24 08:50 | disposition home or self-care (01) ==
LOC: ED 05:33
DX: R10.9 Unspecified abdominal pain (principal); I10 Essential (primary) hypertension; J44.9 Chronic obstructive pulmonary disease, unspecified; I48.91 Unspecified atrial fibrillation; E78.5 Hyperlipidemia, unspecified; Z87.891 Personal history of nicotine dependence; Z88.8 Allergy status to other drugs, medicaments and biological substances; Z79.899 Other long term (current) drug therapy; Z79.01 Long term (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
CPT/HCPCS: 74176; 80053; 81001; 83690; 85025; 85610; 96374; 99284-25; J2405

== ENCOUNTER 2019-12-03 09:28 | Emergency (ER) | payer MEDICARE, OTHER ==
[~2019-12-03] VITALS: Ht 172.7 cm; Wt 104.3 kg
[~2019-12-03 09:28] MED LIST changes: -LASIX40 MG PO; +LASIX80 MG PO
--- OUTSIDE RECORDS SUMMARY | 2019-12-03 09:30 | XMS ---
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 [facility] VISIT COUNT (12 MO.) [address] [place] [address] TOTAL 3 NOTE: Visits indicate total known visits. ED/UCC VISIT TRACKING (12 MO.) 12/03/2019 09:28 [facility] TYPE: Emergency COMPLAINT: - ABD PAIN 11/24/2019 05:34 [facility] TYPE: Emergency COMPLAINT: - ABD PAIN DIAGNOSES: - Other ad terminal makeup operator (current) drug therapy - Hyperlipidemia, unspecified - Personal history of nicotine dependence - Chronic obstructive pulmonary disease, unspecified - Essential (primary) hypertension - Allergy status to other drugs, medicaments and biological sub - Unspecified atrial fibrillation - USP (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 - Unspecified abdominal pain 08/18/2019 02:15 [facility] TYPE: Emergency COMPLAINT: - ABD PAIN,SOB INPATIENT VISIT TRACKING (12 MO.) 08/18/2019 10:[address] 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
--- NOTE | 2019-12-04 09:08 | EKG ---
[facility] [address] [facility] [place], [place] [address] Signed Atrial fibrillation Prolonged QT Abnormal ECG When compared with ECG of 18-AUG-2019 02:25, No significant change was found Confirmed by SAWYER COTTER MD ([id number]) on 12/04/2019 9:07:59 AM Electronically Signed By: SAWYER COTTER MD 12/04/19 0908 PATIENT NAME: KORIN DESHPANDE AUB[place]E Electrocardiogram DATE OF : 38 PHYSICIAN: SAWYER COTTER MD REPORT #: [id number] REPORT IS CONFIDENTIAL AND NOT TO BE RELEASED WITHOUT AUTHORIZATION
== END 2019-12-03 13:24 | disposition home or self-care (01) ==
LOC: ED 09:28
DX: K43.9 Ventral hernia without obstruction or gangrene (principal); J44.9 Chronic obstructive pulmonary disease, unspecified; I48.91 Unspecified atrial fibrillation; E78.5 Hyperlipidemia, unspecified; I10 Essential (primary) hypertension; Z88.8 Allergy status to other drugs, medicaments and biological substances; Z79.899 Other long term (current) drug therapy
CPT/HCPCS: 74022; 80053; 83690; 85025; 93005; 93010; 94640; 96361; 96374; 96375; 99284-25; J1885; J2405; J7040

== ENCOUNTER 2020-01-08 20:24 | Inpatient (IN) | payer MEDICARE, OTHER ==
[~2020-01-08] VITALS: Ht 172.7 cm; Wt 88.7 kg
--- OUTSIDE RECORDS SUMMARY | 2020-01-08 20:26 | XMS ---
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 [facility] VISIT COUNT (12 MO.) 4 [facility] TOTAL 4 NOTE: Visits indicate total known visits. 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 - Hyperlipidemia, unspecified - Personal history of nicotine dependence - Chronic obstructive pulmonary disease, unspecified - Essential (primary) hypertension - Allergy status to other drugs, medicaments and biological sub - Unspecified atrial fibrillation - custodial (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 - Unspecified abdominal pain 08/18/2019 02:15 [facility] TYPE: Emergency COMPLAINT: - ABD PAIN,SOB INPATIENT VISIT TRACKING (12 MO.) 08/18/2019 10:35 [facility] TYPE: Medical Surgical COMPLAINT: - SMALL BOWEL OBSTRUCTION DIAGNOSES: - Presence of coronary angioplasty implant and graft - Atherosclerotic heart disease of [place] coronary artery witho - Body mass index (BMI) 36.0-36.9, adult - 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
[2020-01-09] MEDS ORDERED: METOPROLOL TART25 MG PO (10:13)
[2020-01-09] MEDS ORDERED: ADVAIR 250-501 EACH PO (10:15)
--- NOTE | 2020-01-09 14:38 | EKG ---
[facility] [address] [place], [place] [address] Signed Atrial fibrillation Abnormal ECG When compared with ECG of 03-DEC-2019 10:24, No significant change was found Confirmed by GEOVANNI JORDAN MD ([id number]) on 01/09/2020 2:37:46 PM Electronically Signed By: GEOVANNI OJRDAN MD 01/09/20 1438 PATIENT NAME: KORIN DESHPANDE AUBRIE Electrocardiogram DATE OF : 38 PHYSICIAN: GEOVANNI JORDAN MD REPORT #: [id number] REPORT IS CONFIDENTIAL AND NOT TO BE RELEASED WITHOUT AUTHORIZATION
--- NOTE | 2020-01-09 21:03 | PATH ---
[facility] [address] [place], [place] [address] Signed ORDERING PHYSICIAN: Clement Charlton DO PATIENT NAME: KORIN DESHPANDE GENDER: M : 1940 SPECIMEN(S): MOLECULAR PATHOLOGY RESULTS: SARS-CoV-2 Not Detected ADDITIONAL NOTES.: The [place] Fusion SARS-CoV-2 Assay is a multiplex real-time PCR (RT-PCR) in vitro diagnostic test intended for the qualitative detection of RNA from SARS-CoV-2 from individuals who meet COVID-19 clinical and/or epidemiological criteria. In general, SARS-CoV-2 RNA can be detected during the acute phase of infection. Positive results indicate the presence of SARS-CoV-2 RNA. Clinical correlation with patient history and other diagnostic information is necessary to determine patient infection status. Positive results do not rule out bacterial infection or co-infection with other viruses. Negative results do not preclude SARS-CoV-2 infection and should not be used as the sole basis for patient management decisions. Negative results must be combined with other clinical observations, patient history, and epidemiological information. The [place] Fusion SARS-CoV-2 Assay is not yet approved or cleared by the [place] FDA. When there are no FDA-approved or cleared tests available, and other criteria are met, FDA can make tests available under an emergency access mechanism called an Emergency Use Authorization (EUA). The EUA for this test is supported by the [place] of Health and Human Service's (HHS's) declaration that circumstances exist to justify the emergency use of in vitro diagnostics for the detection and/or diagnosis of the virus that causes COVID-19. This EUA will remain in effect for the duration of the COVID-19 declaration justifying emergency of IVDs, unless it is terminated or revoked by FDA, after which the test may no longer be used. The [place] Fusion SARS-CoV-2 Assay is for use only under EUA in US laboratories certified under the Clinical Laboratory Improvement Amendments of 1988 (CLIA) to perform high complexity tests. [facility] is certified under CLIA to perform high complexity PATIENT NAME: KORIN DESHPANDE PATHOLOGY DATE OF : [birth year] REPORT #: [id number] PHYSICIAN: DWAINE PATHOLOGY PCP: ALBANIA BAGLEY MD REPORT IS CONFIDENTIAL AND NOT TO BE RELEASED WITHOUT AUTHORIZATION [address] [address] Signed clinical laboratory testing. PERFORMING LABORATORY.: Molecular testing was performed by [facility] [place] [address] (Private Duty Aide: Toro Varela D.O.; CLIA#: [id number]) Diagnostician: System Interface Pathologist Electronically Signed 01/09/2020 Copies: ~ PATIENT NAME: KORIN DESHPANDE PATHOLOGY DATE OF : [birth year] REPORT #: [id number] PHYSICIAN: DWAINE SHAH PCP: ALBANIA BAGLEY MD REPORT IS CONFIDENTIAL AND NOT TO BE RELEASED WITHOUT AUTHORIZATION
--- NOTE | 2020-01-10 16:17 | HP ---
[facility] [address] [place], [place] [address] Signed ADMISSION DATE: 01/09/2020 REASON FOR ADMISSION: Persistent incisional hernia near umbilicus with episodic obstruction and multiple medical problems. HISTORY OF PRESENT ILLNESS: This 79-year-old white man has a significant abdominal obesity, primarily with intraabdominal mesenteric fat. He has been evaluated several times through the emergency room and has been admitted in fact in July of this year with protrusion of small bowel through an incisional hernia defect near the umbilicus. I was involved in his care at that time. The CT scan showed protrusion of small bowel through a fascial defect with proximal dilation and distal decompression consistent with obstruction, but easy reduction of the hernia in the supine position with manual reduction. In July of this year, he was admitted and these findings were noted better. Due to restrictions related to the COVID pandemic at that time, no operative interventions could be undertaken and knows the patient is at high risk, who would predictably have a prolonged hospitalization which he certainly qualified for. The patient does have home oxygen prescribed, though he rarely uses it and has other medical problems including chronic anticoagulation with Coumadin for atrial fibrillation. The patient has had a rather significant medical history including not only atrial fibrillation and COPD, but history of cardiac catheterization with cardiac arrest related to contrast dye as well as underlying hypertension and COPD. SOCIAL HISTORY: Despite his numerous medical comorbidities, the patient does not smoke or use alcohol and continues to live alone. PAST SURGICAL HISTORY: His surgical history includes cardiac stents x5, left knee surgery, appendectomy, distant history of colonic resection with colostomy and ultimately reversal of the operation, tonsillectomy, and cholecystectomy. MEDICATIONS: His current active medications include metoprolol, exact dose uncertain, but takes 1.5 tablets b.i.d., I presume 100 mg tablets, but we will have to check. Additionally, Flomax 0.4 mg p.o. at bedtime. Synthroid daily, allopurinol daily, Lasix daily, warfarin unknown dose 1 tab daily, tramadol 1 to 2 p.o. q.4 to 6 hours p.r.n. pain, Electronically Signed By: AWAIS STOUT MD 01/10/20 1617 PATIENT NAME: KORIN DESHPANDE HISTORY AND PHYSICAL DATE OF : 38 REPORT #: [id number] PHYSICIAN: AWAIS STOUT MD PCP: ALBANIA BAGLEY MD REPORT IS CONFIDENTIAL AND NOT TO BE RELEASED WITHOUT AUTHORIZATION [facility] [address] [place], [place] [address] Signed potassium chloride 1 tablet daily, and albuterol inhaler. EKG performed in the emergency room confirms atrial fibrillation. His lactic acid was noted to be 0.8. Troponin less than 0.01. Lab studies otherwise normal except for creatinine of 1.39. His evaluation in the emergency room by Dr. Ignacio included a CT scan of the abdomen, which showed findings consistent with recurrent bowel protrusion through periumbilical incisional hernia defect with possible proximal obstruction. His chest x-ray showed no acute abnormality. REVIEW OF SYSTEMS: He has no pain at this time. He has had no nausea or vomiting. Denies any bowel movement problems in recent times. He has vague abdominal pain, mostly in the right side in the mid abdomen, not exactly at the site of his hernia defect. PHYSICAL EXAMINATION: GENERAL: He looks reasonably well. He is rather plethoric and although not dyspneic. He is quite clearly afflicted by COPD. HEENT: Trachea is midline. His mucous membranes are moist. CHEST: Shows no tachypnea. Breath sounds are distant. HEART: Irregularly irregular. ABDOMEN: Quite massively obese from intraabdominal obesity. Abdominal wall was rather thin. The fascial defect and herniated bowel can easily be noted to the right of the umbilicus in the region of a confluence of midline incision and the extent of a right-sided probable transverse incision from abdominal surgery in the past. He has no focal tenderness particularly. Does not have ascites. EXTREMITIES: Show mild edema. LABORATORY STUDIES: Notable for a normal white count of 7.0, hematocrit of 42.4, platelets 208,000. INR is pending. Urinalysis is negative. Chem profile shows normal electrolytes, though creatinine is noted to be elevated at 1.39, glucose is 119, lactic acid 0.8. Liver enzymes are normal. Troponin is less than 0.01. Albumin is 3.8, lipase 13. I have reviewed his CT scan in detail as well as previous CT scans performed in July and even over a year ago, all of them showing similar findings which include a rather thin abdominal wall with a sizable fascial defect to the right of midline with bowel protruding and in the supraumbilical area a separate fascial defect with fatty herniation. The liver, spleen, and kidneys all appeared normal to my exam. 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 ASSESSMENT: Electronically Signed By: AWAIS STOUT MD 01/10/20 1617 PATIENT NAME: KORIN DESHPANDE HISTORY AND PHYSICAL DATE OF : [birth year] REPORT #: [id number] PHYSICIAN: AWAIS STOUT MD PCP: LABANIA BAGLEY MD REPORT IS CONFIDENTIAL AND NOT TO BE RELEASED WITHOUT AUTHORIZATION [facility] [address] [place], [place] [address] Signed The patient has had recurrent bouts of abdominal pain, which have been associated with herniation of small bowel through a right-sided abdominal fascial defect and a probably asymptomatic supraumbilical midline fascial defect of fat only. Close questioning as to why he presented late this evening, ultimately confirmed that he basically had an episode of right-sided abdominal pain earlier today while at [facility]. The pain though not severe, was persistent and that is what caused him to present tonight once again. It had been intended that he undergo incisional hernia repair once the coronavirus disease epidemic subsided enough that he could predictably have a safe recovery as the hernia even if causing bowel obstruction was easily reducible in the supine position. Most of those factors remain and he does not seem to have persistent incarceration now as the hernia does reduce, but in the upright position recurs and causes some symptoms. He has frailty in general terms related in great part to his obesity, underlying chronic obstructive pulmonary disease, atrial fibrillation, chronic anticoagulation, and supplemental oxygen dependency. I think he has had enough episodes of this repair of the hernia definitively would be most appropriate and medical optimization prior to undertaken operation is needed. He is admitted at this time for reversal of anticoagulation, medical consultation, and operation in the near future, so as to avoid recurrent presentation with herniation and episodic small bowel obstruction. I have discussed all this with him and he agrees. MD THAIS Tomlinson/TEO /[id number] cc: MD Sirisha Rondon MD Electronically Signed By: AWAIS STOUT MD 01/10/20 1617 PATIENT NAME: KORIN DESHPANDE HISTORY AND PHYSICAL DATE OF : [birth year] REPORT #: [id number] PHYSICIAN: AWAIS STOUT MD PCP: ALBANIA BAGLEY MD REPORT IS CONFIDENTIAL AND NOT TO BE RELEASED WITHOUT AUTHORIZATION [address] [address] Signed Copies: SAWYER COTTER MD, CYNTHIA MD ~ Electronically Signed By: AWAIS STOUT MD 01/10/20 1617 PATIENT NAME: KORIN DESHPANDE AUBRIE HISTORY AND PHYSICAL DATE OF : 38 REPORT #: [id number] PHYSICIAN: AWAIS STOUT MD PCP: ALBANIA BAGLEY MD REPORT IS CONFIDENTIAL AND NOT TO BE RELEASED WITHOUT AUTHORIZATION
--- NOTE | 2020-01-12 14:29 | OR ---
[facility] [address] [place], [place] [address] Signed DATE OF OPERATION: 01/10/2020 SURGEON: Awais Stout MD PREOPERATIVE DIAGNOSES: 1. Recent repair of complex abdominal wall incisional hernias x2 with implantation of Prolene mesh (overlay technique). 2. Morbid obesity and chronic obstructive pulmonary disease. 3. Postoperative abdominal straining with clinical disruption of hernia repair early postoperative. POSTOPERATIVE DIAGNOSES: 1. Recent repair of complex abdominal wall incisional hernias x2 with implantation of Prolene mesh (overlay technique). 2. Morbid obesity and chronic obstructive pulmonary disease. 3. Postoperative abdominal straining with clinical disruption of hernia repair early postoperative. 4. Disruption of wound reconstruction with distraction of mesh from right side of incision. PROCEDURES PERFORMED: 1. Exam under anesthesia. 2. Removal of prior mesh. 3. Closure of midline fascia with running Prolene suture and interrupted internal retention sutures of absorbable suture (PDS). Placement of extrafascial Prolene mesh. ANESTHESIA: General endotracheal; Scot Madonna, S[employer]IOR [employer] DEVELOPER and bilateral tap blocks. INDICATIONS: This 79-year-old white man, underwent complex abdominal hernia repair several hours ago, which included implantation of Prolene mesh in an overlay technique with primary reapproximation of fascia. The patient is quite markedly obese with primarily intraabdominal fat and fascia was easily approximated at midline. Explantation of previous mesh and lysis of adhesions was accomplished as well. Closure consisted of midline fascial reapproximation with interrupted Prolene sutures with Prolene pledgets as well as a running closure of the midline fascia with application of Prolene mesh as an overlay technique. Though not a common approach, it was deemed reasonable under the circumstances. Electronically Signed By: AWAIS STOUT MD 01/12/20 1429 PATIENT NAME: KORIN DESHPANDE OPERATIVE REPORT DATE OF : [birth year] REPORT #: [id number] PHYSICIAN: AWAIS STOUT MD PCP: ALBANIA BAGLEY MD REPORT IS CONFIDENTIAL AND NOT TO BE RELEASED WITHOUT AUTHORIZATION [facility] [address] [place], [place] [address] Signed Postoperatively, in the early recovery room time frame, th e patient had extreme disorientation, extreme straining, combativeness, and so forth and clinical findings suggested disruption of the repair. He has returned to the OR for examination and additional measures to control the problem as appropriate. FINDINGS: There was distraction of the mesh from the right side of the fascial area. The bowel loops internally were within the abdominal cavity, but considerable disruption of the complex repair was noted. Repair consisted of reapproximation of the fascia with running Prolene suture as well as internal retention sutures (Smead-Cuadra type) and re-application of Prolene mesh in an overlay technique. It is anticipated that special measures will be undertaken, so as to avoid abdominal straining and repeat disruption of the repair. This would include TAP blocks as well as heavy sedation and careful anesthetic emergence at conclusion of this operation. DESCRIPTION OF PROCEDURE: The patient was brought to the operating room, given a general endotracheal anesthetic. The abdomen was prepared with DuraPrep solution and the incision opened. Immediately noted was omentum within the subcutaneous space and further examination showed distraction of the Prolene mesh from the right side of the fascial closure as well, howeever the prolene overlay mesh was still secured on the left side. Bowel contents were re-examined and replaced into the abdominal cavity. Bits of Prolene pledgets were removed as were the disrupted remaining sutures which were of no ongoing benefit. It became clear that reuse of this same mesh would be inadvisable and this was explanted as well. The fascial layer remained reasonably osei and was easily able to be reapproximated without need for componants release relaxation techniques. Closure under the circumstances included primary fascial reapproximation with running 0 Prolene suture placed concurrently with interrupted internal retentions of 0 PDS suture. These were in a a Smead-Cuadra configuration. Good fascial reapproximation was noted. A segment of Prolene mesh was cut to the length of the defect and secured with running PDS circumferentially and additional interrupted 0 Prolene as appropriate. The drain was replaced to the same site. Irrigation undertaken. Subcutaneous tissue was closed with interrupted 2-0 Vicryl and skin was closed with running subcuticular 3-0 Vicryl. Steri-Strips were applied as was a silver sponge dressing. Tap blocks were anticipated postprocedure. Electronically Signed By: AAWIS STOUT MD 01/12/20 1429 PATIENT NAME: KORIN DESHPANDE OPERATIVE REPORT DATE OF : 38 REPORT #: [id number] PHYSICIAN: AWAIS STOUT MD PCP: ALBANIA BAGLEY MD REPORT IS CONFIDENTIAL AND NOT TO BE RELEASED WITHOUT AUTHORIZATION [facility] [address] [place] [address] Signed Awais Stout MD JM/MODL /[id number] cc: MD Sirisha Burgess MD Copies: ALBANIA BAGLEY MD, CYNTHIA MD ~ Electronically Signed By: AWAIS STOUT MD 01/12/20 1429 PATIENT NAME: KORIN DESHPANDE OPERATIVE REPORT DATE OF : 38 REPORT #: [id number] PHYSICIAN: AWAIS STOUT MD PCP: ALBANIA BAGLEY MD REPORT IS CONFIDENTIAL AND NOT TO BE RELEASED WITHOUT AUTHORIZATION
--- NOTE | 2020-01-12 14:29 | OR ---
[facility] [address] [place], [place] [address] Signed DATE OF OPERATION: 01/10/2020 SURGEON: Awais Stout MD PREOPERATIVE DIAGNOSES: 1. Recurrent bowel obstruction, incisional hernia x2. 2. Morbid obesity and multiple medical problems including chronic obstructive pulmonary disease. POSTOPERATIVE DIAGNOSES: 1. Recurrent bowel obstruction, incisional hernia x2. 2. Morbid obesity and multiple medical problems including chronic obstructive pulmonary disease. 3. Dense adhesions of small intestine related to incisional hernias. PROCEDURES PERFORMED: 1. Laparotomy with lysis of adhesions (explantation of portions of mesh x2). 2. Repair of incisional hernias x2 with extra fascial implantation of Prolene mesh. ANESTHESIA: General endotracheal; Scot Peacock CRNA and local 20 mL of 0.25% Marcaine with epinephrine. INDICATIONS: This 79-year-old white male was admitted by me on 01/08/2020, in the middle of night, having had rather significant pain and findings of recurrent bowel obstruction related to incisional hernia in the right paraumbilical area and incidentally noted to have fascial defect with fat protrusion in the supraumbilical area. The patient has been seen several times in the past 2 years for the same thing. He was last admitted in July with a similar problem, but easy reduction of the hernia was undertaken manually and due to the COVID-19 pandemic, operative repair was deferred. He has been admitted and the obstructive process has resolved with reduction manually of the hernia. He has been medically optimized including reversal of his anticoagulation (Coumadin, INR now 1.3) as well as evaluation of his underlying medical problems, which include COPD, chronic hypoxemia, and distant history of pulmonary problems including chronic atrial fibrillation associated with home oxygen requirement. He is admitted at this time to the operating room to undergo repair of the two hernias. He understands the risks of bleeding, infection, recurrence, and other unforeseen complications, particularly given his significant abdominal obesity. Electronically Signed By: AWAIS STOUT MD 01/12/20 1429 PATIENT NAME: KORIN DESHPANDE OPERATIVE REPORT DATE OF : 38 REPORT #: [id number] PHYSICIAN: AWAIS STOUT MD PCP: ALBANIA BAGLEY MD REPORT IS CONFIDENTIAL AND NOT TO BE RELEASED WITHOUT AUTHORIZATION [facility] [address] [place], [place] [address] Signed FINDINGS: The fascial defect to the right of the umbilicus was printing sales representative of failure of a prior implantation of mesh with hernia repair. There were two segments of mesh possibly Ventralex with a plastic like inner surface and Prolene outer surface. Dense adhesions to the edge of the mesh were noted. Extensive lysis of adhesions was accomplished, reducing the hernia entirely and excising the hernia sac as well as a hernia sac cephalad. A fascial bridge between the two defects was divided and ultimately bowel completely freed up and both hernia sacs excised. Reconstruction of the abdominal wall defect was accomplished actually by a primary reapproximation of the fascia due to the laxity of his abdominal fascia with omentum covering the intraabdominal viscera fully. Additionally, mesh was applied in an extrafascial position. A drain was placed. DESCRIPTION OF PROCEDURE: The patient was brought to the operating room, given a general endotracheal anesthetic. Preoperative antibiotic Ancef was given. Sequential compression device stockings were used. A Giraldo catheter was placed. The abdomen was clipped and prepared with a chlorhexidine solution and draped sterilely. Palpation of the abdomen with multiple scars over it showed the fascial defect to the right of the umbilicus without current incarcerated viscus. It could be told clinically in a fascial defect cephalad above the midline incision also palpated and without sign of incarcerated hollow viscus. A midline incision was made incorporating the umbilicus. Dissection was carried through the subcutaneous tissue with blunt electrocautery dissection identifying the protruding hernia contents. The hernia sac was dissected free from the fascial surrounds and the hernia sac opened. Internal palpation showed dense adhesions of small bowel to the right of the umbilical area and region of prior hernia repair. Meticulous care was taken to free those bowel loops from the overlying fascia, allowing for division of the fascia more inferiorly. A considerable amount of effort was maintained to free the intraabdominal contents and the proximal dilated segment distal decompressed segment was noted. Although, there has been episodic obstruction related to herniation, the most dense cause of obstruction was likely chronic inflammation of the bowel with dense adherence to the prior hernia repair area. Ultimately, it was found that two separate segments of mesh caused the inflammatory changes and dense adhesions of small bowel. These mesh segments were excised. They were probably Ventralex type mesh. Photographs were taken throughout. The fascial defect superiorly was bridged by normal fascia approximately 4-6 cm in length. So as to make the repair in continuity, the fascial edge was divided with electrocautery. Full dissection was undertaken, ultimately freeing the abdominal wall fascia bilaterally. Consideration was made for components release separation to allow for medialization of the linea alba, but given the laxity and thinness of his fascia overall primary reapproximation was deemed more advisable. The omentum was freed completely and placed over the intraabdominal viscera, which was re-examined to assure there was no bleeding or other problem. The midline fascia was Electronically Signed By: AWAIS STOUT MD 01/12/20 7209 PATIENT NAME: KORIN DESHPANDE OPERATIVE REPORT DATE OF : 38 REPORT #: [id number] PHYSICIAN: AWAIS STOUT MD PCP: ALBANIA BAGLEY MD REPORT IS CONFIDENTIAL AND NOT TO BE RELEASED WITHOUT AUTHORIZATION [facility] [address] [place] [id number] Signed reapproximated with interrupted 0 Prolene sutures with Prolene pledgets in a horizontal mattress configuration. Subsequently, the fascia in continuity with a segment of Prolene mesh placed over the fascia was undertaken with running PDS suture. The edges of the mesh were secured to the fascia with interrupted 0 PDS as well. Through a separate stab incision, a 7 mm flat Jayme drain was placed. It was attached to bulb suction. The patient was ultimately extubated and transferred to recovery room in good condition. Blood loss was 50 mL. The operation was rather prolonged, complicated, and difficult. MD THAIS Tomlinson/MODL /[id number] cc: MD Albania Turner MD Copies: GEOVANNI JORDAN MD, JONATHAN MD ~ Electronically Signed By: AWAIS STOUT MD 01/12/20 1429 PATIENT NAME: KORIN DESHPANDE OPERATIVE REPORT DATE OF : 38 REPORT #: [id number] PHYSICIAN: AWAIS STOUT MD PCP: ALBANIA BAGLEY MD REPORT IS CONFIDENTIAL AND NOT TO BE RELEASED WITHOUT AUTHORIZATION
[2020-01-14] MEDS ORDERED: ACETAMINOPHEN500 MG PO (09:34)
--- NOTE | 2020-01-15 10:29 | DS ---
[facility] [address] [place], [place] [address] Signed ADMISSION DATE: 01/09/2020 DISCHARGE DATE: 01/14/2020 REASON FOR ADMISSION: This 79-year-old white man has significant abdominal obesity, primarily with intraabdominal mesenteric fat. He has been evaluated several times through the emergency room and has been admitted in fact in July of this year with protrusion of small bowel through an incisional hernia defect near the umbilicus. This was associated with ( generally) transient bowel obstruction, including proximal enteric dilation and distal decompression of bowel in the herniated site to the right of the umbilicus. Additionally, has a fascial defect cephalad to the umbilicus in the region of prior laparotomy incision with herniation of fat. He presented with severe abdominal pain that occurred earlier in the day and found on CT scan in the emergency room evaluation to show herniated small bowel viscera through the right paraumbilical incisional hernia and protrusion of fat in the supraumbilical fascial defect. Bowel obstruction was once again demonstrated. He is admitted for further evaluation and care. The patient has significant past medical history including atrial fibrillation for which he is chronically anticoagulated with Coumadin. He also has underlying hypertension, COPD, and as described significant abdominal obesity. PERTINENT PHYSICAL EXAMINATION: GENERAL: He looked reasonably well and nontoxic. He is plethoric, but not dyspneic. He is quite clearly affected by COPD. HEENT: Trachea is midline. Mucous membranes are moist. CHEST: Showed distant breath sounds, but no crackles. HEART: Irregularly irregular, consistent with atrial fibrillation. ABDOMEN: Quite massively obese from intraabdominal obesity. Abdomen wall proper was rather thin. The fascial defect and hernia bowel could easily be noted to the right of the umbilicus in the region of the confluence of the midline incision and possibly from a past transverse incision in the area. It was reducible. There was a hernia cephalad to this area in the midline, easily reducible as well. He had no sign of ascites. EXTREMITIES: Showed mild edema. LABORATORY DATA: White count was 7.0, hematocrit 42.4, platelets 208,000. Urinalysis negative. Chem profile showed a creatinine of 1.39, glucose 119, lactic acid 0.8. HOSPITAL COURSE: Electronically Signed By: AWAIS STOUT MD 01/15/20 1029 PATIENT NAME: KORIN DESHPANDE DISCHARGE SUMMARY DATE OF : 38 REPORT #: [id number] PHYSICIAN: AWAIS STOUT MD PCP: ALBANIA BAGLEY MD REPORT IS CONFIDENTIAL AND NOT TO BE RELEASED WITHOUT AUTHORIZATION [facility] [address] [place] [phone] Signed The patient was admitted and was noted to have no nausea or vomiting and the hernia was easily reducible just as it was in the past. Given his numerous medical comorbidities and so forth and with recurrent evaluations for this hernia with intermittent obstruction, definitive management was deemed appropriate for surgical intervention. He had been declined for surgery elsewhere ([facility]) due to his abdominal obesity, it is noted. Hospital consultation was undertaken on the basis of his numerous medical problems and he was seen by Dr. Carrillo. His protime was reversed with vitamin K. He was made optimal from a cardiovascular standpoint with the assistance of the hospitalist and on January 10, 2020, underwent operation. He underwent laparotomy with lysis of adhesions, explantation of portions of mesh x2 and repair of incisional hernias x2 with extra fascial implantation of Prolene mesh. The fascial edges were able to reappoximate at the midline, reconstituting the linea alba and implanting mesh in an overlay approach to further bolster the primary fascial reappoximation. In the recovery room, the patient was initially quite somnolent and then awakened in a rather violent and counterproductive way with significant abdominal straining and struggling, though not hypoxemic or anything of that sort. This caused obvious disruption of the elaborate repair that had been undertaken. On that basis, he was returned to the operating room where repair consisted of closure of the midline fascia with implantation of Prolene mesh in an overlay technique. A drain was placed once again as well. Given his untoward awakening from prior operation, he was extubated once again but was additionally maintained on a Precedex drip and monitored in the intensive care unit where the Precedex drip was carefully withdrawn. He did tolerate this well. His postoperative course was rather unremarkable thereafter. Specifically, he did have drainage from the wound drain that was placed and did develop some ecchymosis of the abdominal wall-- not unexpected considering all of the thrashing about he had in the early postoperative period. He showed no evidence of recurrent hernia and an abdominal binder was maintained persistently. He was started on his Coumadin anticoagulation the day prior to discharge. His discharge hematocrit is noted to be 28.5 and his INR is 1.3 (previously 1.3 on January 09 and 2.1 on January 08). He is discharged to home to have continued use of his Coumadin at a regular dose of only 2.5 mg daily. He will maintain the abdominal binder at all times. It can be washed, but he should not strain or stress his abdomen and particularly not with more than 10 Electronically Signed By: AWAIS STOUT MD 01/15/20 1029 PATIENT NAME: KORIN DESHPANDE DISCHARGE SUMMARY DATE OF : 38 REPORT #: [id number] PHYSICIAN: AWAIS STOUT MD PCP: ALBANIA BAGLEY MD REPORT IS CONFIDENTIAL AND NOT TO BE RELEASED WITHOUT AUTHORIZATION [facility] [address] [place], [place] [address] Signed pounds until further notice. I will be seeing him back in the office in about a month. Notably, his abdominal drain has been removed. MEDICATIONS: His discharge medications will include: 1. Tylenol 1000 mg p.o. q.6 hours p.r.n. pain. 2. Coumadin 2.5 mg p.o. daily. 3. Allopurinol 300 mg p.o. daily. 4. Flomax 0.4 mg p.o. at bedtime. 5. Lasix 80 mg p.o. daily. 6. Potassium chloride 40 mEq p.o. daily. 7. Tramadol 1 to 2 p.o. q.4 to 6 hours p.r.n. pain (usual medicine). 8. Synthroid 50 mcg p.o. daily. 9. Metoprolol 25 mg 1.5 tablets p.o. at bedtime. 10. Fluticasone (Advair Diskus) 1 inhalation 2 times a day. DISCHARGE DIAGNOSES: 1. Chronically recurrent incisional hernia x2 with episodic small-bowel obstruction. 2. Massive morbid abdominal obesity. 3. History of colectomy for diverticular disease, status post resection, colostomy, and hopefully takedown of ileostomy ( Dr Mcrae). Hx of incisional hernia repairs with implantation of mesh at least twice. 4. Gout. 5. Hypothyroidism. 6. Atrial fibrillation with anticoagulation (Coumadin). 7. Chronic obstructive pulmonary disease including home oxygen use at night. 8. Reactive airways otherwise. Awais Stout MD JM/MODL /[id number] cc: MD Sirisha Burgess MD Electronically Signed By: AWAIS STOUT MD 01/15/20 1029 PATIENT NAME: KORIN DESHPANDE AUBRIE DISCHARGE SUMMARY DATE OF : 38 REPORT #: [id number] PHYSICIAN: AWAIS STOUT MD PCP: ALBANIA BAGLEY MD REPORT IS CONFIDENTIAL AND NOT TO BE RELEASED WITHOUT AUTHORIZATION [facility] [address] [facility] [place], [place] [address] Signed Copies: ALBANIA BAGLEY MD, CYNTHIA MD ~ Electronically Signed By: AWAIS STOUT MD 01/15/20 1029 PATIENT NAME: KORIN DESHPANDE DISCHARGE SUMMARY DATE OF : 38 REPORT #: [id number] PHYSICIAN: AWAIS STOUT MD PCP: ALBANIA BAGLEY MD REPORT IS CONFIDENTIAL AND NOT TO BE RELEASED WITHOUT AUTHORIZATION
--- NOTE | 2020-01-15 11:23 | PATH ---
[facility] [address] [place], [place] [address] Signed SPECIMEN(S): A EXPLANTED MESH SPECIMEN(S): B HERNIA SAC SPECIMEN(S): C EXPLANTED MESH SPECIMEN SOURCE: A. EXPLANTED MESH B. HERNIA SAC C. EXPLANTED MESH CLINICAL HISTORY: Bowel obstruction, incisional hernia. FINAL PATHOLOGIC DIAGNOSIS: A. Portion of explanted mesh, incisional hernia, excision: - Fibrocollagenous tissue and mature fibroadipose tissue with no histopathologic abnormality. - Surgical mesh material present. - No evidence of malignancy. B. Hernia sac #2, excision: - Mesothelial lined fibrocollagenous and fibroadipose tissue, consistent with hernia sac. - No evidence of malignancy. C. Explanted mesh #2, excision: - Surgical mesh material with adherent fibrocollagenous and fibroadipose tissue. - No evidence of malignancy. NAL:cml:C2NR MICROSCOPIC EXAMINATION: Histologic sections of all submitted blocks are examined by light microscopy. These findings, together with the gross examination, support the pathologic diagnosis. GROSS DESCRIPTION: Three specimens are received in three containers, labeled "BD." A. The specimen, labeled "BD, A," and designated on the requisition "portion of explanted mesh, incisional hernia," is received in formalin and consists of a somewhat saccular, mcclendon-white, 3.2 x 2.6 x 1.2 cm synthetic mesh-like material with a scant amount of attached fibromembranous and adipose tissue. A definitive mass/lesion is not grossly identified. Also in the container is a 3.2 x 1.7 x 0.3 PATIENT NAME: KORIN DESHPANDE PATHOLOGY DATE OF : 38 REPORT #: [id number] PHYSICIAN: DWAINE SHAH PCP: ALBANIA BAGLEY MD REPORT IS CONFIDENTIAL AND NOT TO BE RELEASED WITHOUT AUTHORIZATION [facility] [address] [place], [place] [address] Signed cm piece of yellow adipose tissue with blue sutures and additional mesh material. A definitive mass/lesion is not grossly identified. Marketing Strategy Analyst sections of the attached tissue are submitted in one cassette (A1). B. The specimen, labeled "BD, B," and designated on the requisition "hernia sac hernia #2," is received in formalin and consists of two saccular, mcclendon-white to yellow fibromembranous to adipose, grossly unremarkable tissue pieces without a discrete mass/lesion. One of the saccular structures contains clotted blood. Marketing Strategy Analyst sections are submitted in one cassette (B1). C. The specimen, labeled "BD, C," and designated on the requisition "explanted mesh #2," is received in formalin and consists of an ovoid, mcclendon-white, synthetic, 4.7 x 4.5 x 0.3 cm mesh-like material with attached mcclendon-white fibromembranous tissue and one blue suture. The specimen is without a definitive mass/lesion. Marketing Strategy Analyst sections are submitted in one cassette (C1). AI (under the direct supervision of a pathologist) The Gross Description was prepared using a voice recognition system. The report was reviewed for accuracy; however, sound-alike word errors, addition and/or deletions may occur. If there is any question about this report, please contact Client Services. PERFORMING LABORATORY: The technical component was performed by [employer], [address] [place], [place] [address] (Glass Forming Engineer: Maryan Yu MD; CLIA# [id number]). Professional interpretation was performed by [employer], [place] branch, [facility] [address] [address] (CLIA# [id number]). Diagnostician: Alisha Purcell MD Pathologist Electronically Signed 01/15/2020 Copies: ~ PATIENT NAME: KORIN DESHPANDE PATHOLOGY DATE OF : 38 REPORT #: [id number] PHYSICIAN: DWAINE PATHOLOGY PCP: ALBANIA BAGLEY MD REPORT IS CONFIDENTIAL AND NOT TO BE RELEASED WITHOUT AUTHORIZATION
== END 2020-01-14 14:25 | disposition home or self-care (01) | DRG 354 ==
LOC: ED 20:24 → MS 01-09 00:08 → CCU 01-09 00:08 → MS 01-12 18:03
PROVIDERS: ADMIT Surgery
PROC: 3E0T3BZ Introduction of Anesthetic Agent into Peripheral Nerves and Plexi, Percutaneous Approach (ICD-10-PCS; 2020-01-10)
PROC: 0WUF0JZ Supplement Abdominal Wall with Synthetic Substitute, Open Approach (ICD-10-PCS; principal; 2020-01-10 13:30)
PROC: 0WQF0ZZ Repair Abdominal Wall, Open Approach (ICD-10-PCS; 2020-01-10 16:18)
DX: K43.0 Incisional hernia with obstruction, without gangrene (principal); I48.20 Chronic atrial fibrillation, unspecified; T81.32XA Disruption of internal operation (surgical) wound, not elsewhere classified, initial encounter; Z20.828 Contact with and (suspected) exposure to other viral communicable diseases; G89.18 Other acute postprocedural pain; E87.6 Hypokalemia; E66.01 Morbid (severe) obesity due to excess calories; N40.0 Benign prostatic hyperplasia without lower urinary tract symptoms; J44.9 Chronic obstructive pulmonary disease, unspecified; I11.0 Hypertensive heart disease with heart failure; I50.9 Heart failure, unspecified; R09.02 Hypoxemia; M10.9 Gout, unspecified; M43.16 Spondylolisthesis, lumbar region; F17.220 Nicotine dependence, chewing tobacco, uncomplicated; Z91.041 Radiographic dye allergy status; Z95.5 Presence of coronary angioplasty implant and graft; Z99.81 Dependence on supplemental oxygen; Z79.01 Long term (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; Z79.891 Long term (current) use of opiate analgesic; Z79.51 Long term (current) use of inhaled steroids; Z79.899 Other long term (current) drug therapy; Z68.29 Body mass index [BMI] 29.0-29.9, adult
CPT/HCPCS: 00832; 36415; 36600; 64488; 71046; 74018; 74176; 76942; 80048; 80053; 81001; 82247; 82465; 82803; 83605; 83615; 83690; 83735; 83880; 84100; 84478; 84484; 84550; 85025; 85610; 93005; 93010; 94640; 94660; 94760; 97162; 97165; 99285-25; C1781; C9803; J0330; J0461; J0690; J1100; J1160; J1170; J1644; J1885; J1940; J2001; J2250; J2370; J2405; J2704; J2765; J2795; J3010; J7121; U0003

== ENCOUNTER 2020-01-23 06:44 | Emergency (ER) | payer MEDICARE, OTHER ==
[~2020-01-23] VITALS: Ht 172.7 cm; Wt 103.0 kg
[~2020-01-23 06:44] MED LIST changes: +ADVAIR 250-501 EACH PO
--- OUTSIDE RECORDS SUMMARY | 2020-01-23 06:46 | XMS ---
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 [facility] VISIT COUNT (12 MO.) [address] [place] [address] TOTAL 5 NOTE: Visits indicate total known visits. ED/UCC VISIT TRACKING (12 MO.) 01/23/2020 06:44 [facility] TYPE: Emergency COMPLAINT: - POST OP PROBLEM 01/08/2020 20:25 [facility] TYPE: Emergency COMPLAINT: - FLANK PAIN 12/03/2019 09:28 [facility] TYPE: Emergency COMPLAINT: - ABD PAIN DIAGNOSES: - Ventral hernia without obstruction or gangrene - Chronic obstructive pulmonary disease, unspecified - Unspecified abdominal pain - Other fci (current) drug therapy - Essential (primary) hypertension - Allergy status to other drugs, medicaments and biological sub - Unspecified atrial fibrillation - Hyperlipidemia, unspecified 11/24/2019 05:34 [facility] TYPE: Emergency COMPLAINT: - ABD PAIN DIAGNOSES: - Other terminal carman (current) drug therapy - Hyperlipidemia, unspecified - Personal history of nicotine dependence - Chronic obstructive pulmonary disease, unspecified - Essential (primary) hypertension - Allergy status to other drugs, medicaments and biological sub - Unspecified atrial fibrillation - USP (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 - Unspecified abdominal pain 08/18/2019 02:15 [facility] TYPE: Emergency COMPLAINT: - ABD PAIN,SOB INPATIENT VISIT TRACKING (12 MO.) 01/09/2020 00:08 [facility] TYPE: Medical Surgical COMPLAINT: - BOWEL OBSTRUCTION DIAGNOSES: - Spondylolisthesis, lumbar region - Presence of coronary angioplasty implant and graft - Other acute postprocedural pain - Hypoxemia - Radiographic dye allergy status - USP (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 - Disruption of internal operation (surgical) wound, not elsewh - Dependence on supplemental oxygen - Heart failure, unspecified - Morbid (severe) obesity due to excess calories - Incisional hernia without obstruction or gangrene - Hypokalemia - manager terminal (current) use of opiate analgesic - Nicotine dependence, chewing tobacco, uncomplicated - Incisional hernia with obstruction, without gangrene - Other terminal carman (current) drug therapy - Chronic obstructive pulmonary disease, unspecified - Benign prostatic hyperplasia without lower urinary tract symp - Body mass index (BMI) 29.0-29.9, adult - manager terminal (current) use of inhaled steroids - Contact with and (suspected) exposure to other viral communic - Hypertensive heart disease with heart failure - Gout, unspecified - Chronic atrial fibrillation, unspecified 08/18/2019 10:35 [facility] TYPE: Medical Surgical COMPLAINT: - SMALL BOWEL OBSTRUCTION DIAGNOSES: - Presence of coronary angioplasty implant and graft - Atherosclerotic heart disease of [place] coronary artery witho - Body mass index (BMI) 36.0-36.9, adult - manager terminal (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 - Hyperuricemia without [...] unspecified - Chronic kidney disease, unspecified - manager terminal (current) use of opiate analgesic - Other terminal carman (current) drug therapy - Heart failure, unspecified - Sleep apnea, unspecified - Hypoxemia - Personal history of nicotine dependence - Incisional hernia with obstruction, without gangrene [email or web address]
== END 2020-01-23 08:37 | disposition home or self-care (01) ==
LOC: ED 06:44
DX: K91.840 Postprocedural hemorrhage of a digestive system organ or structure following a digestive system procedure (principal); I11.9 Hypertensive heart disease without heart failure; J44.9 Chronic obstructive pulmonary disease, unspecified; I48.91 Unspecified atrial fibrillation; E78.5 Hyperlipidemia, unspecified; Z87.891 Personal history of nicotine dependence; Z88.8 Allergy status to other drugs, medicaments and biological substances; Z79.899 Other long term (current) drug therapy; Z79.01 Long term (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; Z79.891 Long term (current) use of opiate analgesic
CPT/HCPCS: 80048; 85025; 85610; 85730; 94640; 99283

== ENCOUNTER 2020-02-28 14:42 | Inpatient (IN) | payer MEDICARE, OTHER ==
[~2020-02-28] VITALS: Ht 172.7 cm; Wt 107.3 kg
--- OUTSIDE RECORDS SUMMARY | 2020-02-28 14:44 | XMS ---
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 [facility] VISIT COUNT (12 MO.) 6 [facility] TOTAL 6 NOTE: Visits indicate total known visits. ED/UCC VISIT TRACKING (12 MO.) 02/28/2020 14:42 [facility] TYPE: Emergency COMPLAINT: - WEAKNESS 01/23/2020 06:44 [facility] TYPE: Emergency COMPLAINT: - POST OP PROBLEM DIAGNOSES: - snf (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 - terminal computer operator (current) use of opiate analgesic - Hyperlipidemia, unspecified - Postprocedural hemorrhage of a digestive system organ or stru - Allergy status to other drugs, medicaments and biological sub - Unspecified atrial fibrillation - Chronic obstructive pulmonary disease, unspecified - Hypertensive heart disease without heart failure - Other oil heaterman (current) drug therapy - Personal history of nicotine dependence - Postprocedural hemorrhage of a digestive system organ or stru 01/08/2020 20:25 [facility] TYPE: Emergency [...] COMPLAINT: - ABD PAIN DIAGNOSES: - Other alf (current) drug therapy - Hyperlipidemia, unspecified - Personal history of nicotine dependence - Chronic obstructive pulmonary disease, unspecified - Essential (primary) hypertension - Allergy status to other drugs, medicaments and biological sub - Unspecified atrial fibrillation - snf (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 - Unspecified abdominal pain 08/18/2019 02:15 [facility] TYPE: Emergency COMPLAINT: - ABD PAIN,SOB INPATIENT VISIT TRACKING (12 MO.) 01/09/2020 00:08 [facility] TYPE: Medical Surgical COMPLAINT: - BOWEL OBSTRUCTION DIAGNOSES: - Spondylolisthesis, lumbar region - Presence of coronary angioplasty implant and graft - Other acute postprocedural pain - Hypoxemia - Radiographic dye allergy status - snf (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 - Disruption of internal operation (surgical) wound, not elsewh - Dependence on supplemental oxygen - Heart failure, unspecified - Morbid (severe) obesity due to excess calories - Incisional hernia without obstruction or gangrene - Hypokalemia - terminal computer operator (current) use of opiate analgesic - Nicotine dependence, chewing tobacco, uncomplicated - Incisional hernia with obstruction, without gangrene - Other oil heaterman (current) drug therapy - Chronic obstructive pulmonary disease, unspecified - Benign prostatic hyperplasia without lower urinary tract symp - Body mass index (BMI) 29.0-29.9, adult - snf (current) use of inhaled steroids - Contact with and (suspected) exposure to other viral communic - Hypertensive heart disease with heart failure - Gout, unspecified - Chronic atrial fibrillation, unspecified 08/18/2019 10:35 [facility] TYPE: Medical Surgical COMPLAINT: - SMALL BOWEL OBSTRUCTION DIAGNOSES: - Presence of coronary angioplasty implant and graft - Atherosclerotic heart disease of [place] coronary artery witho - Body mass index [...] (current) use of opiate analgesic - Other oil heaterman (current) drug therapy - Heart failure, unspecified - Sleep apnea, unspecified - Hypoxemia - Personal history of nicotine dependence - Incisional hernia with obstruction, without gangrene [email or web address]
[2020-02-28] MEDS ORDERED: FUROSEMIDE80 MG PO (15:30)
--- NOTE | 2020-02-28 19:31 | NUR ---
TELEPHONE REPORT RECEIVED FROM ED RN MAXIMINO AT THIS TIME. QUESTIONS ANSWERED, AWAITING PT'S ARRIVAL.
--- NOTE | 2020-02-28 20:00 | NUR ---
PT ARRIVED TO FLOOR @ 1946 VIA STRETCHER. HE AMBULATED OVER TO BED SBA. HE IS ALERT AND ORIENTED VS TAKEN AND HIS RR IS ELEVATED. PT DENIES SOB. WILL START IV FLUIDS, ABX AND ADMISSION HX.
--- NOTE | 2020-02-28 20:57 | NUR ---
SPOKE WITH DR COTTER TO VERIFY IF VANCO SHOULD BE GIVEN. IT WAS ORDERED AT 1900 BEFORE PT ARRIVED TO THE FLOOR AND THE ORDER FELL OFF/ DC'D UPON PT TRANSFER. DR COTTER SAID TO GIVE THE VANCO AND ALSO GAVE ORDERS TO RUN D5LR@125 AFTER POTASSIUM FLUID IS COMPLETE.
--- NOTE | 2020-02-28 21:20 | NUR ---
IN ROOM TO ADMINISTER MORPHINE 2MG IV FOR PAIN. CHANGED IV FLUIDS OVER TO NEW ORDER. ADULT EDUCATOR IS MIXING THE VANCO ABX AND WILL BE STARTED SHORTLY. PT IS EATING A SANDWICH BOX AT THIS TIME. CALL LIGHT IS CLOSE.
--- NOTE | 2020-02-28 23:30 | NUR ---
SCHEDULED BP MEDICATION GIVEN (SEE EMAR). VSS, NO DISTRESS NOTED. PT DENIES SOB. RT LESLIE IN ROOM FOR PREOP EKG. ASSESSMENT ALSO COMPLETE, DENIES PAIN AND NAUSEA. GAUZE DRESSING TO ABD INTACT, SOME SHADOWING NOTED, SEROSANGUINEOUS IN COLOR, NOT YET FULLY SATURATED. WILL MONITOR. PT MADE NPO AT THIS TIME PER MD ORDERS. IV FLUIDS AND IV ABX INFUSING, SITES X2 WNL. NO ADDITIOANL NEEDS, CALL LIGHT INR EACH. BED ALARM ON.
--- NOTE | 2020-02-29 01:44 | NUR ---
IV PUMP WAS BEEPING, BOLUS WAS COMPLETE. D5LR IS NOW INFUSING. PT IS RESTING WITH EYES CLOSED, RR IS EVEN AND NONLABORED. CALL LIGHT IS CLOSE.
--- NOTE | 2020-02-29 02:38 | NUR ---
PT'S IV KEPT BEEPING BECAUSE PT IS HAVING A HARD TIME KEEPING RIGHT ARM STRAIGHT. CHANGED CONTINUOUS IV INFUSION TO L AC IV SITE. CALL LIGHT IS CLOSE.
--- NOTE | 2020-02-29 02:52 | NUR ---
CAME TO WITH RN TO GET 2AM VITS, RN IN FOR ASSESSMENT AND MEDS, NO FURTHER REQUEST FOR ME AT THIS TIME
--- NOTE | 2020-02-29 03:01 | NUR ---
ASSESSMENT COMPLETE, SCHEDULED BP MEDICATION GIVEN (SEE EMAR). VSS, RR 24. PT DENIES DYSPNEA AND SOB, STATING "I FEEL JUST FINE". NO DISTRESS NOTED, INTERMITTMENT COUGHING. PT STATES, "I BREATHE THROUGH MY MOUTH AND IT MAKES MY MOUTH DRY THEN I COUGH". LUNG SOUNDS CLEAR, DIMINISHED IN THE BASES. IV FLUIDS INFUSING, SITE WNL. NO ADDITIONAL NEEDS, NO CHANGES TO ABD. PT DENIES NAUSEA. CALL LIGHT IN REACH.
--- NOTE | 2020-02-29 04:51 | NUR ---
PT RESTING IN BED WITH EYES CLOSED. RESPIRAITONS EVEN AND UNLABORED. NO DISTRESS NOTED AT THIS TIME. CALL LIGHT IN REACH.
--- NOTE | 2020-02-29 07:00 | NUR ---
BP TRENDING DOWNWARD. PER MACHINE, BP RESULT OF 91/46. MANUAL BP TAKEN TO CONFIRM. SENIOR WAREHOUSE CLERK ROOM TO ASSIST, MANUAL BP RESULT OF 84-82/40. DAYSHIFT RN MARY THEN OBTAINED A SBP OF 72, UNABLE TO OBTAIN DBP. PT HAS HX OF AFIB. PT ASYMPTOMATIC AND RESTING IN BED. DENIES DIZZINESS AT REST. SLIGHTLY COOL IN BUE. PT AWAKE AND CONVERSING WITH STAFF. DR COTTER NOTIFED, PROVIDED WITH VS AND URINE OUTPUT TRENDS. VERBAL ORDER READ BACK TO HOLD SCHEDULED LOPRESSOR. NO NEW ADDITIONAL ORDERS. CARPENTER ASSEMBLER DID NOT OBTAIN RR WITH AM VITALS, RETURNED TO ROOM BUT COULD NOT OBTAIN RR DUE TO NEB IN PLACE. RT IN ROOM.
--- NOTE | 2020-02-29 07:20 | NUR ---
HANDOFF REPORT RECEIVED FROM DRIVER TRAINER DIALIA PEGUERO. PT HYPOTENSIVE, BP 72 SYSTOLIC MANUAL, METOPROLOL HELD, SUDHIR NOTIFIED DR. COTTER AND DR. DICKSON, NO NEW ORDERS AT THIS TIME.
[2020-02-29] MEDS ORDERED: CARVEDILOL6.25 MG PO (08:13)
--- NOTE | 2020-02-29 09:00 | EKG ---
[facility] [address] [facility] [place], [place] [address] Signed Atrial fibrillation Abnormal ECG When compared with ECG of 08-JAN-2020 22:32, No significant change was found Confirmed by SAWYER COTTER MD ([id number]) on 02/29/2020 9:00:16 AM Electronically Signed By: SAWYER COTTER MD 02/29/20 0900 PATIENT NAME: KORIN DESHPANDE AUBRIE Electrocardiogram DATE OF : 38 PHYSICIAN: SAWYER COTTER MD REPORT #: [id number] REPORT IS CONFIDENTIAL AND NOT TO BE RELEASED WITHOUT AUTHORIZATION
--- NOTE | 2020-02-29 09:09 | NUR ---
PT RESTINGIN BED. PT CONTINUES TO BE HYPOTENSIVE, BP 88/55, HR 73, DENIES SOB, DENIES CHEST PAIN, DENIES DIZZINESS. DR. DICKSON NOTIFIED. PT ON ROOM AIR, LUNG SOUNDS WITH RHONCHI AND DIMINISHED BASES. PT NPO FOR SURGERY, BOWEL TONES ACTIVE, DENIES NAUSEA. CMS INTACT, WITHOUT EDEMA. D5LR INFUSING AT 125ML/HR, IV CEFEPIME INFUSING. PT DENIES OTHER NEEDS AT THIS TIME.
[2020-02-29] MEDS ORDERED: LISINOPRIL2.5 MG PO (10:16)
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
--- NOTE | 2020-02-29 11:55 | NUR ---
PT TO HAVE SURGERY LATER TODAY. HE IS RESTING COMFORTABLY IN BED. PT IS ALERT, ORIENTED AND INFORMED ME THAT HE "SPRUNG A LEAK". PT PLEASANT, GAVE BLESSING AND ENCOURAGEMENT. WILL FOLLOW
--- NOTE | 2020-02-29 11:58 | NUR ---
PT TO OR WITH RN PIERRE.
--- NOTE | 2020-02-29 13:32 | CONS ---
[facility] [address], [place] [address] Signed DATE OF CONSULTATION: 02/29/2020 CHIEF COMPLAINT: Periumbilical erythema and warmth. HISTORY OF PRESENT ILLNESS: Tiffany Villafuerte is an 79-year-old gentleman, who presented for repair of a periumbilical incisional hernia about [address] Stout[address] Initially had an underlay Prolene mesh placed. However in the recovery room, he was agitated, coming awake, and he tore all that completely apart. He had to go back to the operating room and be closed and put with Prolene onlay mesh placed over top. I had reviewed this with Dr. Stout today as we passed in the recovery room. Dr. Stout has been on vacation and was unable to take Tiffany on this admission. Dr. Stout explained to me that the mesh is only a few cm wide and 12 or 15 cm in length to cover that midline incision. Tiffany told me he seemed to be doing fine, but then noticed pain, erythema and some drainage around the umbilicus. He came to emergency room for evaluation last night. He has been on cefepime and Flagyl, vancomycin as well as one dose of Zosyn. Overall, he is feeling well. His blood pressures tend to run a little low, so we held his metoprolol. In the meantime, we have had our Internal Medicine Service see him as well. We know he has significant medical issues as listed below including his COPD. In the meantime, Tiffany seems to be doing fine. I did meet with him earlier today. However, a couple of other surgeries took precedence and now we are here for Tiffany. PAST MEDICAL HISTORY: Hypertension, obesity, coronary artery disease, COPD, lumbago, chronic shoulder pain, atrial fibrillation, hyperlipidemia, spinal stenosis, constipation, chronic renal failure, diverticulosis, electrocution, gout. PAST SURGICAL HISTORY: Cardiac cath with arrest from the contrast, cardiac stents x5, left knee surgery, appendectomy, colostomy with reversal for his diverticular disease, bilateral ear surgery, right total knee replacement, right tibial split-thickness skin graft after a large hematoma was infected, tonsillectomy, cholecystectomy, lysis of adhesions, periumbilical incisional hernia repair with onlay Prolene mesh with Dr. Stout approximately 6 weeks ago. SOCIAL HISTORY: He has quit smoking finally. He does have an occasional drink. His son is Malcolm at [phone]. He is a DNR/DNI. He prefers the [facility] pharmacy. Dr. Albania Alvarez is his primary care provider. FAMILY HISTORY: Not reviewed today. Electronically Signed By: MIRI DICKSON MD 02/29/20 1332 PATIENT NAME: TIFFANY DESHPANDE CONSULTATION DATE OF : 38 REPORT #: [id number] PHYSICIAN: MIRI DICKSON MD PCP: ALBANIA ALVAREZ MD REPORT IS CONFIDENTIAL AND NOT TO BE RELEASED WITHOUT AUTHORIZATION [place] [id number], [place] [address] Signed REVIEW OF SYSTEMS: I reviewed 10 systems with Tiffany and he currently up since we did his split-thickness skin grafts on his right pretibial area. He wanted to show that to me today and it has healed up very nicely. ALLERGIES: IV contrast/gadolinium during his cardiac catheterization. MEDICATIONS: Tylenol, Flomax, levothyroxine, allopurinol, Coumadin, potassium chloride, albuterol, Advair, and Lasix. PHYSICAL EXAMINATION: VITAL SIGNS: Blood pressure 88/55, heart rate 73, respiratory rate 22, temperature 98.1, he is 95% on 2 L nasal cannula. He is 5 feet 8 inches at 107 kg. GENERAL: Tiffany is an 79-year-old gentleman, lying supine in his hospital bed. He appears elderly and frequently breathes with pursed lips. He is not always able to complete his sentences. He has mild to moderately distant breath sounds. HEART: Irregularly irregular without murmur. ABDOMEN: Obese and protuberant, but soft. He has an area of periumbilical erythema every bit 15 x 20 cm. It is indurated and warm. It is a little swollen to the right of the umbilicus, but does not appear to be obviously fluctuant. LABORATORY DATA: White blood count 7.2, hemoglobin 10.5, neutrophils 76, BUN 26, creatinine 1.54, glucose 118. Liver function tests are negative. Albumin is 2.9. His urinalysis was negative. His INR is 1.1. His lactic acid is 1.5. RADIOGRAPHIC STUDIES: A CT scan and pelvis is reviewed along with the report, one can easily see the abscess in anterior abdominal wall in the periumbilical area with multiple bubbles of air. ASSESSMENT/PLAN: Tiffany is an 79-year-old significantly debilitated gentleman, who has a postoperative wound infection/abscess following his incisional hernia repair about 6 weeks ago. He has been admitted, given IV fluids and triple antibiotics. He has also been given his breathing treatments. I explained to Tiffany we need to take him back to the operating room to evacuate all that infection and remove that mesh. We will leave the sutures in the midline knowing that he may develop suture granuloma or fistula tract in the future. The last time he spent a day or so in the recovery room on Precedex. On this occasion, we are going to do our best to see if he can have a spinal anesthetic and we will put him in the ICU least for day to watch him closely as he is quite debilitated. He has expressed understanding and agrees to above plan. He told me he has already spoke to Electronically Signed By: MIRI DICKSON MD 02/29/20 1332 PATIENT NAME: TIFFANY DESHPANDE CONSULTATION DATE OF : 38 REPORT #: [id number] PHYSICIAN: MIRI DICKSON MD PCP: ALBANIA ALVAREZ MD REPORT IS CONFIDENTIAL AND NOT TO BE RELEASED WITHOUT AUTHORIZATION [address] [address] Signed his son Malcolm. Miri Dickson MD ALB/MODL /[id number] cc: MD Albania Tomlinson MD Andrew L Bower, MD Copies: AWAIS STOUT MD, JONATHAN MD BOWER, ANDREW L MD ~ Electronically Signed By: MIRI DICKSON MD 02/29/20 1332 PATIENT NAME: TIFFANY DESHPANDE CONSULTATION DATE OF : 38 REPORT #: [id number] PHYSICIAN: MIRI DICKSON MD PCP: ALBANIA ALVAREZ MD REPORT IS CONFIDENTIAL AND NOT TO BE RELEASED WITHOUT AUTHORIZATION
--- NOTE | 2020-02-29 13:39 | NUR ---
02/29/20 Hayley Mast 1317- PT ARRIVES TO PACU AROUSABLE TO VOICE. PT IS CALM AND UPDATED THAT SURGERY IS OVER. RESP EVEN AND UNLABORED. OXYGEN SAT MID TO HIGH 90'S ON 6L VIA MASK. 1324- OXYGEN TITRATED OFF. 1328- PT PLACED ON 2L VIA NC OXYGEN SAT DECRASED TO THE MID 80'S ON RA.
--- NOTE | 2020-02-29 14:01 | NUR ---
PT ARRIVED FROM PACU, REPORT RECEIVED FROM ORDERLY. PT RATING PAIN 0/10. PT ON 4L NC, O2 SATS 100%, LUNG SOUNDS WITH RHONCHI THROUGHOUT. IV FLUIDS STARTED D5LR AT 100ML/HR, FLAGYL INFUSING. PT ON ASSISTANT DIRECTOR OF ADMISSIONS, AFIB, HX OF AFIB. PT WITH MIDLINE INCISION COVERED WITH ABD, SHADOWING NOTED, ABD BINDER IN PLACE. CMS INTACT. PT ORIENTED TO ALL BUT DATE. PT ASKING FOR SOMETHING TO EAT, GIVEN WATER.
--- NOTE | 2020-02-29 15:02 | NUR ---
PT RESTING IN BED, ATTEMPTED TO USE URINAL, UNABLE TO VOID. PT PROVIDED I/S AND EDUCATION PROVIDED ON USE. PT TOLERATING CLEAR LIQUID AT THIS TIME, DENIES NAUSEA. ABD INCISION WITH MODERATE DRAINAGE OF SEROUS/ DAKINS. PT DENIES OTHER NEEDS AT THIS TIME.
--- NOTE | 2020-02-29 16:14 | NUR ---
PT TOLERATING CLEAR LIQUID DIET, DENIES NAUSEA. PT REQUESTING TO EAT REAL FOOD. CALL PLACED TO DR. DICKSON, UPDATED ON PT CONDITION, ORDER TO ADVANCE DIET TOLERATED, DIET INCREASED TO 2G NA DIET.
--- NOTE | 2020-02-29 17:24 | NUR ---
PT RESTING IN BED. PT ASSISTED TO ORDER DINNER. PT DENIES OTHER NEEDS AT THIS TIME.
--- NOTE | 2020-02-29 17:45 | NUR ---
PT ASSISTED TO STAND AT EDGE OF BED TO VOID, VOIDED 350 ML OF URINE. SBA TO AMBULATE TO CHAIR, DENIES FEELING LIGHTHEADED OR DIZZY. BP 121/74, HR 91 WHILE SITTING IN CHAIR. PT PROVIDED WARM BLANKET, AWAITING DINNER. PT DENIES OTHER NEEDS AT THIS TIME.
--- NOTE | 2020-02-29 18:23 | NUR ---
PT FRANCIS ARSHAD CALLED FOR UPDATE, UPDATE PROVIDED, CALL TRANSFERED INTO ROOM. PT DENIES OTHER NEEDS AT THIS TIME.
--- NOTE | 2020-02-29 18:30 | NUR ---
PT WENT FOR I&D OF ABD ABSCESS, PT DOING WELL POST-OP. PT ON 2LNC, O2 SATS 96%, LUNG SOUNDS WITH RHONCHI, I/S AT BEDSIDE, SCHEDULED NEBS. IV FLUIDS INFUSING D5LR AT 100ML/HR, RECEIVING CEFEPIME, VANCO AND FLAGYL. ABD WITH WOUND, PACKED WITH DAKINS SOAKED GAUZE, COVERED WITH ABD PAD AND ABD BINDER. PT TOLERATING 2G NA DIET, BOWEL TONES ACTIVE. 1PA TO AMBULATE. VOIDING QS.
--- NOTE | 2020-02-29 19:30 | NUR ---
REPORT RECEIVED FROM MARY FRIEDMAN. PT IN BED AWAKE, RT IN TO SEE PT.
--- NOTE | 2020-02-29 20:40 | NUR ---
IN TO DO ASSESSMENT AND HS MEDS. PT AWAKENS EASILY, SNACK GIVEN PER REQUEST. ABDOMINAL BINDER IN PLACE, DRESSING TO ABD IS HAS SHADOWING ON IT. LUNGS WITH SOME EXP WHEEZING HEARD. PT ASSISTED UP TO VOID STANDING AT BEDISDE INTO URINAL, HR UP TO 130 WHILE STANDING UP. PT REPORTS FEELING SLIGHTLY DIZZY WHEN STANDING AND ALSO REPORTS THAT THIS IS USUAL FOR HIM. HELPED BACK TO BED, PT NOW IN BED WATCHING TV.
--- NOTE | 2020-02-29 21:05 | NUR ---
PT C/O 12/30 ABDOMINAL PAIN. ONE TAB NORCO 10/325 GIVEN. DRESSING CHANGE DONE PER DR BLACKMAN ORDER-OLD DRESSING REMOVED SATURATED WITH SS FLUID, SOME FRESH BLEEDING INSIDE WOUND DRESSING WAS PULLED OUT-WILL MONITOR. WOUND PACKED WITH DAKINS SOAKED GAUZE, COVERED WITH ABD AND THEN ABDOMINAL BINDER REPLACED.
--- NOTE | 2020-02-29 23:31 | NUR ---
IN TO CHECK ON PT AND DO ASSESSMENT, PT REPORTS PAIN STILL TOLERABLE AT 4/10. WATCHING TV IN BED.
--- NOTE | 2020-03-01 01:44 | NUR ---
PT RESTING WITH EYES CLOSED, HR 95-100, RESP EVEN AND UNLABORED RR 18.
--- NOTE | 2020-03-01 02:20 | NUR ---
PT REQUESTS "SOMETHING TO KNOCK ME OUT". ONE TAB NORCO GIVEN.
--- NOTE | 2020-03-01 04:39 | NUR ---
PT CALLS TO USE URINAL, VOIDED 300ML WHILE LYING IN BED THEN ASSESSMENT DONE. NO REQUESTS AT THIS TIME.
--- NOTE | 2020-03-01 06:48 | NUR ---
PT HAS BEEN ASKING FREQUENTLY FOR IS CHEWING TOBACCO WHICH HE STATES IS IN THE CLOSET. OFFERED TO GET HIM A NICOTINE PATCH AND HE DID NOT WANT ONE "THOSE NEVER WORK". STATES HE WILL TAKE A NORCO TO TRY TO HELP HIM RELAX AND REST HE HAS NOT HAD ANY GOOD SLEEP ALL NIGHT. ONE NORCO GIVEN.
--- NOTE | 2020-03-01 07:15 | NUR ---
THIS RN RECEIVED REPORT FROM MORGAN FRIEDMAN. PT UP TO CHAIR AT THIS TIME. NEB TREATMENT BY GIVEN BY VINCE FROM RT.
--- NOTE | 2020-03-01 08:30 | NUR ---
THIS RN IN PTS ROOM TO GIVE MORNING MEDS AND DO MORNING ASSESSMENT. PT UP TO CHAIR AND STATES THAT HE DID NOT SLEEP WELL. PT ASKING THIS RN IF HE COULD HAVE IS JEANS, THIS RN ASKED WHY PT WANTED HIS JEANS, PT RESPONDED BY STATING THAT HE WANTED SOMETHING OUT OF HIS JEANS. THIS RN DISCUSSED WITH PT THAT HE COULD NOT HAVE HIS CHEW. PT STATED HE UNDERSTOOD AND STATED THAT HE DID NOT WANT NICOTINE REPLACEMENT AT THIS TIME "IT DOESN'T WORK FOR ME" PT STATES THAT HIS PAIN IS A 4/10, PT STATES THAT HIS PAIN IS TOLERABLE UNTIL IT GETS OVER A 5/10
--- NOTE | 2020-03-01 08:50 | OR ---
[facility] [address], [place] [address] Signed DATE OF OPERATION: 02/29/2020 SURGEON: Miri Dickson MD PREOPERATIVE DIAGNOSIS: Periumbilical postoperative wound infections/abscess following primary incisional herniorrhaphy with Prolene onlay mesh approximately 6 weeks prior. POSTOPERATIVE DIAGNOSIS: Periumbilical postoperative wound infections/abscess following primary incisional herniorrhaphy with Prolene onlay mesh approximately 6 weeks prior. PROCEDURES: 1. Incision and drainage of periumbilical wound abscess. 2. Deep wound cultures. 3. Explantation onlay Prolene mesh. ESTIMATED BLOOD LOSS: None. FINDINGS: Tiffany Villafuerte appeared to have breakdown of the skin at the base of the umbilicus with granulation tissue leading down to his wound, probably representing the source of his infection. The infection had spread throughout his entire previous operative field above and below and in to the right side of the umbilicus. INDICATIONS: Tiffany Villafuerte is an 79-year-old gentleman, I know from a large hematoma he had over his right tibial area. It had been infected and I was asked to debride that and then subsequently, we placed skin graft. That is all healed up nicely. However, Tiffany was suffering with a periumbilical incisional hernia. He has had a previous Cindi's resection for diverticular disease. The colostomy had been reversed. He had been in the hospital with what appeared to be a bowel obstruction and had to undergo lysis of adhesions with repair of the hernia with Dr. Stout. Initially, he had underlay Prolene mesh. Unfortunately, he was agitated in recovery room and it all tore apart and he had to go back to the operating room to repair that. His midline had been brought together primarily and then a thin piece of Prolene mesh, probably 3 cm wide had been placed down over the top of that incision. Tiffany noticed increasing erythema, pain and swelling, some drainage around the umbilicus. He had been in the emergency room last night. His white count was actually normal and within normal lactic acid. The CT scan of abdomen Electronically Signed By: MIRI DICKSON MD 03/01/20 0850 PATIENT NAME: TIFFANY DESHPANDE OPERATIVE REPORT DATE OF : 38 REPORT #: [id number] PHYSICIAN: MIRI DICKSON MD PCP: ALBANIA BAGLEY MD REPORT IS CONFIDENTIAL AND NOT TO BE RELEASED WITHOUT AUTHORIZATION [facility] [address], [place] [address] Signed and pelvis, however, showed the abscess with air bubbles between the skin and the anterior abdominal wall involving his previous operative field. We admitted him overnight and started him on triple antibiotics to include vancomycin, cefepime, and Flagyl. We had our Internal Medicine Service see him and he has been on his inhalers as well due to his significant COPD. I had met with Tiffany earlier today and we reviewed the above findings. I explained to him we had to open up that previous incision and remove as much of the mesh as possible. The wound to be left open to heal in secondarily. Our plan is to use Dakin's solution for at least 3 or 4 days, then switch over to saline and/or a wound VAC. He understands he is at high risk for recurrent incisional hernia. He is also at high risk for suture granuloma and/or fistula tract up to the skin. He understands expected intraop and postop course. He had expressed understanding and wished to proceed. PROCEDURE NOTE: I once again met with Tiffany in our preop area. After this, he was taken in the operating room and placed in the supine position under general endotracheal tube anesthesia. He is on Lovenox and could not use a spinal anesthetic. Our anesthesia provider provided bilateral tap blocks for the abdominal wall. He was already on his triple antibiotics along with his Lovenox. SCDs were in place. No Giraldo catheter was inserted. He was prepped and draped in the usual sterile fashion. We opened up his previous periumbilical incision with a #20 blade knife, carried it down through the abdominal wall with the help of the cautery. His abdominal wall was quite indurated following his surgery from 6 weeks ago. We encountered the abscess cavity and took our deep wound cultures. We continued to suction out and irrigate the wound until clear. We extended the incision slightly superior and inferior until we had exposed the entire previous operative field. We used additional antibiotic saline solution along with multiple gauze pads in order to wipe out the wound completely clean. We could see the prolene mesh over the midline about 3 cm wide. It was well incorporated along the edges. We found a couple of areas in the center that were not incorporated and we were able to open that sharply with the scissors and then pass our Pean clamp underneath both superiorly and inferiorly. We then divided that mesh down the middle and rolled the mesh laterally both to the left and to the right to where it met the abdominal wall. We used a curved Griffin's then to sharply excise the mesh along its lateral edges. There may be just a little mesh left at the most superior aspect of that incision, probably less than 1 cm area. It was more difficult to find the exact edge inferiorly, although we searched that area quite extensively. We would say at least 98% of the mesh was excised. His abdominal wall remains intact. We removed quite a bit of the PDS suture, which had already lost its color in the abdominal wall. There were a few areas of Prolene suture that we trimmed back, but we otherwise left in place. After this, the entire wound was packed with full strength Dakin's solution soaked in a 4-inch wide Kerlix gauze roll. A dry ABD was over this and then we placed an abdominal binder around this. Tiffany was Electronically Signed By: MIRI DICKSON MD 03/01/20 0850 PATIENT NAME: TIFFANY DESHPANDE OPERATIVE REPORT DATE OF : 38 REPORT #: [id number] PHYSICIAN: MIRI DICKSON MD PCP: ALBANIA BAGLEY MD REPORT IS CONFIDENTIAL AND NOT TO BE RELEASED WITHOUT AUTHORIZATION [address] [address] Signed then awakened from his anesthesia, extubated in the OR, and taken to recovery room in stable condition. Miri Dickson MD ALB/MODL /[id number] cc: MD Miri Tomlinson MD Jonathan Hitzman, MD Chart Filed Incomplete Copies: AWAIS STOUT MD, ANDREW L MD HITZMAN, JONATHAN MD CHART FILED INCOMPLETE ~ Electronically Signed By: MIRI DICKSON MD 03/01/20 0850 PATIENT NAME: TIFFANY DESHPANDE AUBRIE OPERATIVE REPORT DATE OF : 38 REPORT #: [id number] PHYSICIAN: MIRI DICKSON MD PCP: ALBANIA BAGLEY MD REPORT IS CONFIDENTIAL AND NOT TO BE RELEASED WITHOUT AUTHORIZATION
--- NOTE | 2020-03-01 09:00 | NUR ---
THIS RN IN PTS ROOM WITH TO INSPECT PTS WOUND. THIS RN HAD PT MOVE FROM CHAIR TO BED, PT ABLE TO MOVE WELL WITH MINIMAL INCREASE IN HEART RATE. REMOVED OLD DRESSING TO EXPOSE ABDOMINAL WOUND. WOUND BED HAS SUTURES IN PLACE, SOME WHITE AND PINK AND RED TISSUE WITH MINIMAL SPOTS OF BLACK. THIS RN DOUSED 1 ROLL OF KERLEX IN DAKINS AND PACKED THE WOUND. THIS RN DRESSED OVER THE WOUND WITH A ABD PAD AND TAPE. PT TOELRATED WELL.
--- NOTE | 2020-03-01 09:56 | NUR ---
PT TRANSFERED FROM CCU TO ROOM 113. REPORT OBTAINED FROM CLOTILDE FRIEDMAN. VSS. PT ON 2L NC, FREQUENT COUGHT. PT ALLOWED TO EAT BREAKFAST. PT DENIES OTHER NEEDS AT THIS TIME.
--- NOTE | 2020-03-01 10:45 | NUR ---
PT RESTING IN BED. PT WITH GOOD APPETITE, ATE 100% OF BREAKFAST. PT WITH BP 102/58 MANULA, HR 72 RADIAL, IV METOPROLOL HELD. IV VANCO INFUSING. PT DENIES OTHER NEEDS AT THSI TIME.
--- NOTE | 2020-03-01 11:52 | NUR ---
IV VANCO INFUSION STARTED PER ORDER. PT REQUESTING PAIN MEDICATION, RATING PAIN 7/10, GIVEN 1 TAB NORCO. PT DENIES OTHER NEEDS AT THIS TIME.
--- NOTE | 2020-03-01 14:30 | NUR ---
PT RESTING IN BED. PT HYPOTENSIVE, BP 98/52, DISCUSSED METOPROLOL ORDER WITH Victorino RANGEL ORDER TO CHANGE DOSE TO 2.5MG IV VS 5MG IV, 2.5 MG IV METOPROLOL GIVEN. PT ON 2L EXPIRATORY WHEEZE NOTED TO RIGHT UPPER LOBE, DENIES SOB. BOWEL TONES ACTIVE, PASSING FLATUS, CONCERNED ABOUT HAVING BM, PRUNE JUICE ORDERED. PT WITH MIDLINE ABSCESS, ABD BINDER IN PLACE. NO ACUTE CHANGES. IV FLAGYL INFUSING. PT DENIES OTHER NEEDS AT THIS TIME.
--- NOTE | 2020-03-01 17:10 | NUR ---
PT WALKED IN [place]VIR[place] WITH MACHINE SPREADER, NOW RESTING IN CHAIR, BLOOD PRESSURE 108/58, O2 SATS DROPPED TO 87% ON ROOM AIR DURING WALK, O2 REPLACED AT 2L NC. PT DENIES OTHER NEEDS AT THIS TIME.
--- NOTE | 2020-03-01 19:05 | NUR ---
pt BACK IN BED WITH SPOT MACHINE OPERATOR ASSIST. 2L OXYGEN BY NC IN PLACE. pt PROVIDED WITH WATER REQUESTED. CALL LIGHT IN REACH.
--- NOTE | 2020-03-01 20:32 | NUR ---
EDUCATION PROGRAM COORDINATOR ROUNDING NOTE. PT RESTING IN BED, UTILIZES CALL LIGHT ATTEMPTING TO UNTANGLE CORDS. PT REPORTS NC MAKING NARES SORE, REPOSITIIONED. PT STATES RELIEF. IV SITE REINFORCED WITH COBAN. CALL LIGHT PLUGGED BACK INTO WALL. DINNER TRAY REMOVED FROM PT'S ROOM. PT DENIES FURTHER NEEDS AT THIS TIME. CALL LIGHT IN REACH. WHITE BOARD UPDATED.
--- NOTE | 2020-03-01 22:30 | NUR ---
IN pt ROOM FOR IV ANTIBIOTIC ADMINISTRATION, ASSESSMENT COMPLETE. IV SITE INFILTRATED IN LEFT AC. NEW IV SITES PLACED BY THIS RN AND RN LEVON LEFT WRIST AND LEFT FOREARM. SCHEDULED MEDICATIONS ADMINISTERED. VSS. pt TITRATED TO ROOM AIR, SPO2 WNL AT REST. DRESSING CHANGED ORDERED. ABD BINDER IN PLACE. CALL LIGHT AND PERSONAL SUPPLIES IN REACH.
--- NOTE | 2020-03-01 23:24 | NUR ---
PATIENT CALLED TO USE THE BATHROOM. PATIENT WILL CALL WHEN HE IS READY TO GO BACK TO BED. INSTRUCTED TO PULL THE CALL LOGHT CORD. PATIENT UNDERSTOOD.
--- NOTE | 2020-03-01 23:40 | NUR ---
CALL LIGHT ANSWERED, SBA TO RESTROOM AND BACK TO BED. LEAD REPLACED ON TELE. CALL LIGHT AND PERSONAL SUPPLIES IN REACH. HR 87-92 AFIB.
--- NOTE | 2020-03-02 01:07 | NUR ---
CALL LIGHT ANSWERED, pt UNCOMFORTABLE, UNALBE TO SLEEP. PRN PAIN MEDICATION ADMINISTERED REQUESTED. CRACKERS PROVIDED WITH MEDICATION. CALL LIGHT IN REACH.
--- NOTE | 2020-03-02 02:21 | NUR ---
IV ANTIBIOTIC COMPLETE. pt SNORING, EYES CLOSED. LIGHTS OFF IN ROOM.
--- NOTE | 2020-03-02 05:21 | NUR ---
pt ON TELE 8, AFIB RHYTHM, RATE CONTROLLED. INCREASED WOB WITH AMBULATION. TITRATED TO RA THIS SHIFT, SPO2 WNL. DRESSING CHANGED PER ORDERS THIS SHIFT. pt APPEARED TO REST AFTER PRN PAIN MEDICATION. ABD BINDER IN PLACE. BOWEL TONES ACTIVE X 4. USING CALL LIGHT APPROPRIATELY. SBA.
--- NOTE | 2020-03-02 05:51 | NUR ---
pt AWAKE IN ROOM. UP TO BEDSIDE WITH ANDRÉS THACKER FOR VOID IN URINAL. pt STATES "MAYBE SLEPT FOR 15 MINUTES". DENIES PAIN STATES "IT'S AN ITCHY FEELING ON MY BELLY". BOWEL TONES ACTIVE, FLATUS PRESENT. ABD SOFT, DISTENDED. SPO2 WNL ON RA. VSS. LUNG SOUNDS COARSE BILATERALLY BASES, EXPIRATORY WHEEZES THROUGHOUT LUNG LOBES, pt DENIES NEED FOR PRN TREATMENT AT THIS TIME. DEMONSTRATES IS USE INSTRUCTED WITH 1000 ML BEST EFFORT. CALL LIGHT IN REACH. WATER PROVIDED.
--- NOTE | 2020-03-02 06:50 | NUR ---
IV ANTIBIOTIC COMPLETE. pt APPEARS TO BE SLEEPING, SNORING. LINE TKO TO ALLOW REST FOR pt. LIGHTS OFF IN ROOM. IVF INFUSING WNL ORDERED.
--- NOTE | 2020-03-02 07:00 | NUR ---
HANDOFF REPORT RECEIVED FROM SPECIAL EFFECTS MAKEUP ARTIST IDALIA MURRIETA. PT SLEEPING, LEFT UNDSITURBED.
--- NOTE | 2020-03-02 09:19 | NUR ---
PT RESTING IN BED. PT STATES HE CAN'T SLEEP, FEELS "HUNGOVER". ANSWERING ORIENTATION QUESTIONS APPROPRIATELY. PT DENIES PAIN. PT ON ROOM AIR, LUNG SOUNDS WITH EXPIRATORY WHEEZE IN RIGHT UPPER LOBE, CLEAR LEFT UPPER, DIMINISHED BILATERAL LOWER, O2 SATS 94%. PT WITH MIDLINE WOUND, PACKED WITH GAUZE, PLAN FOR DRESSING CHANGE AFTER DR. DICKSON ROUNDS ON PT. IV CEFEPIME INFUSING. CMS INTACT, WITHOUT EDEMA. DISCUSSED WITH DR. DICKSON THAT PT IS NOT ACTING AT BASELINE AND CONCERNED FOR DELERIUM WITH LACK OF SLEEP, ORDER TO DISCUSS WITH DR. COTTER.
--- NOTE | 2020-03-02 11:15 | NUR ---
PT COMPLETED WITH SHOWER. ABD WOUND CLEANSED WITH WOUND CLEANSER SPRAY, WOUND PACKED WITH DAKINS SOAKED KERLIX, BACTROBAN APPLIED TO SKIN AROUND WOUND, WOUND COVERED WITH ABD PAD AND SECURED WITH ABD BINDER.
--- NOTE | 2020-03-02 12:15 | NUR ---
PT GIVEN 12.5MG PO METOPROLOL PER ORDER, IV VANCO INFUSING. PT SITTIN GIN BED, PT WITH GOOD APPETITE, ATE 100% OF LUNCH. PT DENIES OTHER NEEDS AT THIS TIME.
--- NOTE | 2020-03-02 18:43 | NUR ---
PT TOOK SHOWER TODAY, DRESSING CHANGED THIS AM. PT RECEIVING VANCO, CEFEPIME AND FLAGYL. PT DID NOT REQUIRE PAIN MEDICATION TODAY. PT TOLERATING DIET, NOW SALINE LOCKED. VOIDING QS. RECEIVING LACTULOSE FOR CONSTIPATION.
--- NOTE | 2020-03-02 19:10 | NUR ---
PT REQUESTING PAIN MEDITION, RATING PAIN 9/10 TO ABD, GIVEN 2 TABS NORCO. PT VOIDINED, UANBLE TO HAVE BM, GIVEN SECOND DOSE OF LACTULOSE. PT NOW RESTING IN BED.
--- NOTE | 2020-03-02 19:30 | NUR ---
RECEIVED REPORT AT 1900, FOUND PT IN BED WATCHING TV.
--- NOTE | 2020-03-02 20:30 | NUR ---
ELECTRICAL TECH/PROJECT MANAGER ROUNDING NOTE. PT RESTINGIN BED WATCHING TV. PT HAVING EPISODES OF COUGHING WHILE WRTIER AT BEDSIDE. STATES PAIN INCREASES WITH COUGH. EDCUATION REGARDING SPLINTING PROVIDED. PT DEMONSTRATES UNDERSTANDING. PT STATES THAT WHEN NOT COUGHING PAIN SUBSIDES. PT DENIES NEEDS AT THIS TIME. CALL LIGHT IN REACH. WHITE BOARD UDPATED.
--- NOTE | 2020-03-02 20:50 | NUR ---
PATIENT CALLED TO USE THE BATHROOM. 1 PA. PATIENT IS BACK IN BED. PRIMARY RN WITH PATIENT. V/S AND I&O TAKEN AND CHARTED.
--- NOTE | 2020-03-02 21:30 | NUR ---
DRESSING CHANGE DONE AT 2100 PER ORDER. ALL LOBES HAVE EXPIRATORY WHEEZING PRESENT. ABD FIRM AND TENDER TO TOUCH. +1 EDEMA PRESENT IS RLE WITH SOME REDNESS BUT NO HEAT. NO NEW CONCERNS NOTED, WILL CONTINUE TO MONITOR.
--- NOTE | 2020-03-02 23:05 | NUR ---
PATIENT CALLED TO USE THE BATHROOM. PATIENT HAD A SECOND BOWEL MOVEMENT. PATIENT IS BACK IN BED. CALL LIGHT IN REACH.
--- NOTE | 2020-03-02 23:51 | NUR ---
PT AT THIS TIME IS SLEEPING. PT DID HAVE A LARGE BM.
--- NOTE | 2020-03-03 00:40 | NUR ---
PT STARTED GETTING HIMSELF UP OUT OF BED, SETTING OFF BED ALARM, HAD LARGE INCONTINENT STOOL, PT UNSTEADY ON FEET. 2 PERSON ASSIST USING FWW TO TOILET WHERE PT SAT FOR A WHILE, THEN PT CLEANED UP, ATTENDS PLACED AND PT ASSISTED BACK INTO BED. DURING THIS EPISODE PT WAS SOMEWHAT IRRITATED AND IMPULSIVE, HAD PULLED HIS ABD BINDER UP AND TAKEN OFF HIS ABD. ONCE PT BACK IN BED FRESH ABD APPLIED AND ABD BINDER REPLACED. CALL LIGHT IN HAND, PT STATES HE IS TIRED AND WANTING TO SLEEP NOW.
--- NOTE | 2020-03-03 00:51 | NUR ---
CALL LIGHT ANSWERED. BED ALARM WENT OFF. PATIENT WAS UP TO USE THE BATHROOM. PATIENT HAD A BOWEL MOVEMENT ON HIS PANTS. IDALIA DOS SANTOS AND THIS STAMP MAKER WIPED/CLEANED PATIENT. PUT ON NEW PULL UPS, NEW PANTS AND SOCKS. PATIENT IS BACK IN BED. IDALIA DOS SANTOS PLACED THE ABDOMINAL BINDER IN PLACE. CALL LIGHT IN REACH. BED ALARM ON FOR SAFETY.
--- NOTE | 2020-03-03 02:15 | NUR ---
PT IS SLEEPING AT THIS TIME.
--- NOTE | 2020-03-03 03:52 | NUR ---
CALL LIGHT ANSWERED. PATIENT WAS UP TO USE THE TOILET WITH UNCONTROLLED LOOSE BOWEL MOVEMENT. THIS TRACK SUPERVISOR WIPED CLEANED PATIENT AND PLACED NEW PULL UPS. PATIENT IS BACK IN BED. CALL LIGHT WITHIN REACH. BED ALARM ON.
--- NOTE | 2020-03-03 03:56 | NUR ---
PT STATED THAT HE HAS HAD NO PAIN SINCE THE FIRST BM THIS SHIFT. ABD IS VISIBLY SMALLER AT THIS TIME. PT DOES HAVE PAIN WHEN COUGHING THOUGH. ALL LOBES STILL HAVE EXPIRATORY WHEEZING PRESENT, HIS HR ALSO JUMPED UP TO THE 140'S WITH ACTIVITY AND COUGHING. OTHERWISE NO NEW CONCERNS WERE NOTED SO FAR. WILL CONTINUE TO MONITOR.
--- NOTE | 2020-03-03 06:33 | NUR ---
AT START OF SHIFT PT HAD PAIN 10/10. ONCE PT HAD A BM (HE HAD SEVERAL THIS SHIFT) HIS PAIN SUBSIDED. PT ONLY HAS PAIN WHEN COUGHING. DRESSING CHANGE WAS DONE AT 2100, ALL LOBES HAVE EXIRATORY WHEEZING PRESENT, URINE OUTPUT WAS ADEQUATE, HR IS IRREGULAR BUT CONTROLLED OVERALL AT REST. IF PT IS ACTIVE HOWEVER, HIS HR CAN REACH THE 140'S AT TIMES. SURGICAL INCISION SITE LOOKS GOOD OVERALL. RLE HAS SOME EDEMA PRESENT AND REDNESS WITH SMALL BLISTER. WILL CONTINUE TO MONITOR. PT DID SLEEP SOME TONIGHT. PT ALSO ASKED FOR SOME "CHEW" BUT REFUSED NICTOTINE OF ANY KIND. PT AT TIMES AT NIGHT SEEMS TO BE SOMEWHAT CONFUESED AND GETS IRRITATED QUICKLY.
--- NOTE | 2020-03-03 08:12 | NUR ---
PT TERRIBLY PAINFUL GETTING UP TO THE CHAIR WITH COUGH AND MOVEMENT. PAIN MEDICATIONS PROVIDED. PT SITTING IN THE CHAIR CALL LIGHT IN HAND, MORNING MEAL SERVED.
--- NOTE | 2020-03-03 09:17 | NUR ---
PATIENT IN CHAIR RESTING. RT IN ROOM TO START NEB TREATMENT. LINENS CHANGED. CALL LIGHT IN REACH. NO FURTHER NEEDS AT THIS TIME.
--- NOTE | 2020-03-03 10:26 | NUR ---
PT SITTING UP IN RECLINER, SLEEPING HAS OUT OF HIS NOSE PUSHED UP ON HIS FOREHEAD, OXYGEN SATURATION CHECKED 90% OXYGEN SATURATION. WITH OXYGEN PLACED BACK IN NOSE.
--- NOTE | 2020-03-03 10:43 | NUR ---
PT AGREES PAIN MEDICATIONS WERE VERY HELPFUL REPORTS IT ONLY HURTS WHEN HE COUGHS NOW. CONTINUES UP IN THE CHAIR NIBBLES AT MORNING MEAL. CALL LIGHT IN LAP
--- NOTE | 2020-03-03 12:12 | NUR ---
DR DICKSON IN TO SEE PT UNDRESSES WOUND STATES NO MORE DAKINS CHANGE TO NS. STATES PT CAN PROBABLY BE DC'D TOMORROW. AGREES WOUND VAC WOULD LIKELY BE APPROPRIATE WOUND CARE NURSE TO CONSULT.
--- NOTE | 2020-03-03 13:00 | NUR ---
SPOKE WITH PATIENT IN ROOM. PATIENT UP IN CHAIR. PATIENT IS VERY LUMBEE AND HAVE TO REPEAT MANY TIMES, BUT IS ORIENTED. DISCUSSED THAT WE ARE PLANNING NEXT TRANSITION AND THAT HE AND I TALKED TUESDAY AND HE WANTS TO RETURN HOME AT DISCHARGE. DISCUSSED THAT DR DICKSON HAS ASKED ME TO TALK WITH HIM HE MAY NEED A WOUND VAC AT DISCHARGE AND WE ARE CONCERNED THAT IF HE GOES HOME ALONE HE MIGHT NOT BE ABLE TO GET AROUND WITH WALKER WITH EQUIPEMENT SAFELY WHILE ALONE. PATIENT STATES HE DOESN'T WANT TO "EXTEND MY LIFE, WHEN MY TIME COMES IT COMES". EXPLAINED WE THINK HIS WOUND WILL HEAL AND THAT WE CAN ORDER HOME HEALTH OR HE CAN COME IN FOR THE DRESSING CHANGES TO OUTPATIENT WOUND CLINIC. AFTER GOING OVER THIS MANY TIMES DUE TO HIS HEARING, HE FINALLY SEEMS TO UNDERSTAND AND STATES HE HAS TALKED WITH HIS SON PAVITHRA AND HE PLANS TO GO HOME WITH HIM AND STAY. I ASKED IF HE WORKS, AND HE SAYS YES. HE IS UNSURE WHAT I AM ASKING, WHEN I ASK IF I CAN CALL HIS SON, HE STATES "OH I ALREADY TALKED WITH HIM, YOU DON'T NEED TO BOTHER HIM". EXPLAINED I JUST WANT TO MAKE SURE WE ALL UNDERSTAND WHAT NEEDS TO BE DONE TO GET HIM HOME SAFELY. HE STATES "NO DON'T BOTHER HIM". AGAIN I EXPLAINED I JUST WANT TO MAKE SURE PAVITHRA KNOWS WHAT THE DOCTOR THINKS. HE THEN AGREES. CALLED SON PAVITHRA [phone]. DISCUSSED DISCHARGE NEEDS. HE STATES HE CAN TAKE HIM TO HIS HOUSE, BUT HE WORKS AND HE WOULD BE ALONE THERE, TOO. HE STATES HE ALSO HAS STAIRS HE WOULD NEED TO USE AND DOESN'T THINK THAT WOULD WORK. HE STATES HIS DAUGHTER IS LOOKING INTO HELP AT HIS HOME. HE STATES THEY TRIED GETTING PATIENT TO GO TO ASSISTED LIVING IN [facility] WHERE HE HAS LOTS OF FAMILY, BUT IN THE END, PATIENT REFUSED. WE DISCUSSED OPTIONS. HE FEELS GOING BACK TO HIS APARTMENT IS BEST ITS ONE FLOOR AND HE HAS LOTS OF FRIENDS THERE WHO COME CHECK ON HIM. HE ASKED FOR HELPING HANDS INFORMATION TO HIRE SOME HELP FOR AWILE AND THINKS HOME HEALTH WOULD WORK GOOD GOING OUT TO WOUND CLINIC MIGHT BE HARD FOR HIM RIGHT NOW. HE ASKED I TEXT HIM HELPING HANDS INFO, HE IS IN A PEICE OF EQUIPMENT WORKING AND HAS NO PAPER. PICTURE OF HELPING HANDS BROCHURE SENT VIA TEXT (NO PATIENT INFO GIVEN) WITH THEIR CONTACT INFORMATION. CM WILL CONTINUE TO FOLLOW.
--- NOTE | 2020-03-03 13:39 | NUR ---
PT SITTING UPRIGHT IN CHAIR WITH NOON MEAL. DC SEAM CLOSER IN TO DISCUSS ONGOING WOUND CARE AND PT OPTIONS.
--- NOTE | 2020-03-03 14:17 | NUR ---
PT SITTING IN CHAIR, ALERT AND TRYING TO EAT LUNCH. IT APPEARS IT HAS BEEN THERE AWHILE. PT IS C/O COUGH AND HOW MUCH DISCOMFORT HE HAS. HAD GOOD VISIT, GAVE ENCOURAGEMENT, PT REQUESTED PRAYER. WILL PASS ON TO IDALIA HOWARD ABOUT COUGH
--- NOTE | 2020-03-03 14:45 | NUR ---
JE SITTING IN CHAIR RESTING. FRESH WATER GIVEN. PATIENT COMPLAINING OF PAIN AND WANTING PAIN MEDS. RN NOTIFIED. CALL LIGHT IN REACH. NO FUTHER NEEDS AT THIS TIME.
--- NOTE | 2020-03-03 15:53 | NUR ---
PT UP IN RECLINER, RESTING EYES CLOSED. CALL LIGHT IN LAP
--- NOTE | 2020-03-03 16:46 | NUR ---
PT IS CONSULTED TO WOUND CARE FOR PERIUMBILICAL WOUND FOLLOWING AN I&D OF ABSCESS. PT HAD A UMBILICAL HERNIA REPAIRED IN DECEMBER BY DR. DICKSON, WHICH DEHISCED AFTER SURGER AND HE WAS IMMEDIATELY TAKEN BACK TO THE OR. THE AREA MEASURES 17.5CM X 5.5CM X 2.8CM. THE BASE OF THE WOUND IS PRIMARILY GRANULATION TISSUE AND FATTY DEPOSITS; THE BASE OF THE WOUND HAS STARTED TO DRY OUT. THERE ARE VISIBLE SUTURES IN THE WOUND BED. THERE IS NO VISIBLE EXUDATE DURING ASSESSMENT. THE EDGES ARE INTACT, WITH NO UNDERMING OR TUNNELING PRESENT. THERE IS NO EXUDATE AT THE TIME OF ASSESSMENT. THERE ARE NO SIGNS OR SYMPTOMS OF INFECTION AT THIS TIME, HOWEVER THE EDGES OF THE WOUND ARE INDURATED WITHOUT REDNESS OR WARMTH. THE PERIWOUND SKIN IS INTACT, WITH REDNESS/DISCOLORATION PRESENT. HE PT REPORTS PAIN, BUT IS UNABLE TO GIVE A DEFINITIVE RATING SCALE. THE PT IS A STRONG CANDIDATE FOR NPWT AND IT IS APPLIED AT THIS TIME. ADPATIC CONTACT LAYER IS PLACED IN THE WOUND BED TO PROTECT THE VISIBLE SUTURES. THE PT TOLERATES THE APPLICATION OF THE NPWT DRESSING WELL, IN FACT HE SLEEPS THROUGH THE APPLICATION. THE PT WILL BE REFERRED TO THE [facility] FOR MONITORED CARE OF THE NPWT UNTIL THE WOUND IS HEALED.
--- NOTE | 2020-03-03 18:25 | NUR ---
PATIENT STOOD TO USE URINAL AND IS NOW BACK TO SITTING IN CHAIR, 1PA. CALL LIGHT IN REACH. NO FURTHER NEEDS AT THIS TIME.
--- NOTE | 2020-03-03 18:42 | NUR ---
PT UP TO USE THE URNIAL, APPEARS SOMEWHAT DISORIENTED THIS EVENING CONCERNED ABOUT WOUND VAC APPEARS TO BE AGITATED ASKING WHAT HE WILL DO WHEN HE TAKES HIS WATER PILL ETC. ENCOURAGED PT ALL WILL BE WELL HE TAKES REDIRECTION OKAY RETURNS TO SITTING UP IN CHAIR. HE HAS BEEN PAINFUL THIS SHIFT WITH COUGHING AGREES HE IS OTHERWISE COMFORTABLE. NEW CLEAN BINDER PLACED
--- NOTE | 2020-03-03 20:05 | NUR ---
Pt up in chair, legs elevated, room air at this time, Irritable mood but coop with assessment. flushed face, moist productive cough thick yello/beige colored phlegm. lungs with exp wheezing and dim sounds t/o bilat. gets nebs. midline low abd red skin, tender, firm abd, vicky. wound vac in place. abd binder in place, repositoned. pt praised for keeping it on. Sl patent L arm, multiple bruising areas over arms and legs present. red area R lower leg from old wound, tolerating sips of fluid well, no c/o pain except when coughing, call light at bedside, warm blanket given. Denies needing to get up to urinate, attends in place
--- NOTE | 2020-03-03 20:40 | NUR ---
POKER DEALER ROUNDING NOTE. PT RESTING IN CHAIR WITH EYES CLOSED. DOES NOT WAKE WHILE LITURGICAL MUSIC DIRECTOR IN ROOM. WHITE BOARD UPDATED. CALL LIGHT IN REACH.
--- NOTE | 2020-03-03 22:53 | NUR ---
in chair, room air, legs elevated, c/o abd pain 8/10 mid line abd wound vac in place, abd binder in place. Abd more painful when pts cough. moist productive cough. no further c/o. received neb tx earlier, insp wheezing with exertioon , sats 91% when moving. Call light at bedside
--- NOTE | 2020-03-03 23:00 | NUR ---
CALL LIGHT ANSWERED. WENT IN TO THE ROOM. SEEN PATIENT IS SITTING ON THE CHAIR. TOOK OFF HIS GOWN. HE WANTS HEART MONITOR OFF. IDALIA HERNANDEZ DID TAKE OFF THE TELE. PATIENT IS IN BED NOW. CALL LIGHT WITHIN REACH. BED ALARM ON FOR SAFETY.
--- NOTE | 2020-03-03 23:27 | NUR ---
PT VERY IRRITATED, UPSET, ANGRY, YELLING, FLINGING TELE AROUND. '"IM NOT HAVING A HEART ATTACK, I DO NOT NEED THIS, I HAVE KNOWN WHEN MY HERS IS READY TO HAVE A HEART ATTACK INTHE PAST, I DO NOT NEE IT, IM GOING HOME TOMORROW". iNOT RECEPTIVE TO TEACHING. SITTING EDGE OF BED. VERY ARGUMENTATIVE WITH BOTH STAFF, DESCALATED WHEN TELE LEADS REMOVED. DR CUELLAR NOTIFIED. NEW ORDER FOR "OK TO DC TELE DUE TO PTS REFUSAL"
--- NOTE | 2020-03-04 | NUR ---
CALMER, IN BED, EYES CLOSED, ROOM AIR, ABD WOUND VAC IN PLACE
--- NOTE | 2020-03-04 01:06 | NUR ---
c/o insomnia, medicated with trazadone 50mg po, in bed, less irritable, abd wound vac in place, abd binder in place, bruising all over body healing. tele dc'd earlier. on room air, sob with exertion, lungs faint crackles, montrell t bases, gets neb tx. uses call light appropiately. fluids at bedsdei, no further c/o pain
--- NOTE | 2020-03-04 03:09 | NUR ---
RESTING, EYES CLOSED, NO RESP DISTRESS, TURNS SELF IN BED, CALL LIGHT AND FLUIDS AT BEDSIDE.
--- NOTE | 2020-03-04 05:53 | NUR ---
Pt continoues on aerosolized precautions after neb tx. On room air, lungs had exp wheezing at begining of shift, last assessment fine crackles, continues to have sob with exertion, moist productive cough, tolerating fluids and diet well. Pt was very anfry,irritable at begining of and t/o shift due to him having tele and mid low abd wound vac. reason for wound vac explained by both this RN and charge nurse stated understanding but then got angry later, unsure if he forgot instructions. Tele dc'd after notifying Dr Holguin as pt refused to wear it and was flinging tele around, not receptive to teaching. calmed down after it was dc'd. Denies c/o cp, dx afib rhythm still afib. Was medicated x2 with norco x2 per c/o abd pain with good pain relief. Trazadone 50mg po given per c/o insomnia with good pain relief. voiding QS. 1PA, spend majority of this shift in chair, legs elevated. Currently in bed, eyes closed, no resp distress, call light and fluids at bedside. Continue to explain reason and benefits of wound vac and compliance. after being dc home.
--- NOTE | 2020-03-04 07:35 | NUR ---
DR DICKSON INTO SEE PT DC ORDERS WRITTEN. PT UP TO THE CHAIR Q&A R/T WOUND VAC ALL QUESTIONS ANSWERED. PT CONTINUES TO BE PAINFUL WITH MOVEMENT AND COUGHING MEDS TO BE ADMINISTERED.
[2020-03-04] MEDS ORDERED: DOXYCYCLINE HY100 MG PO (08:15)
[2020-03-04] MEDS ORDERED: NORCO 10-325 T1 EACH PO (08:16)
--- NOTE | 2020-03-04 09:30 | NUR ---
PRIMARY RN ANITA REPORTS PATIENT HAS BEEN ON ROOM AIR SATURATING IN MID 90'S ALL DAY YESTURDAY, OVERNIGHT, AND TODAY. SPOT CHECKING REGULARLY.
--- NOTE | 2020-03-04 10:12 | NUR ---
UNABLE TO VISIT PT UNTIL 1055 HRS DUE TO AGP. MINO THOMAS
--- NOTE | 2020-03-04 10:15 | NUR ---
PT TOLERATES MORNING MEAL, PAIN MEDS ADMINISTERED. SITTING UP IN HIS CHAIR RESTING EYES CLOSED A THIS TIME.
--- NOTE | 2020-03-04 11:02 | NUR ---
PATIENT SITTING IN CHAIR. SHOWER AFTER LUNCH. CALL LIGHT IN REACH. NO FURTHER NEEDS AT THIS TIME.
--- NOTE | 2020-03-04 12:02 | NUR ---
PT SITTING UP IN THE CHAIR VISITING WITH CLERGY. STATES HE'S NOT HUNGRY REFUSES NOON MEAL. AGREES TO NOTIFY STAFF IF HE CHANGES HIS MIND. ANTICIPATES DC AROUND 1400 WHEN HIS SON ARRIVES
--- NOTE | 2020-03-04 13:55 | NUR ---
WENT TO CHECK ON PT-SITTING IN CHAIR. PT IMMEDIATELY BEGAN TO EXPRESS THAT HE IS VERY DISCOURAGED AND REPEATED STATED, "I DON'T WANT TO LIVE LIKE THIS ANYMORE". IT IS PAINFUL FOR PT WHEN HE COUGHS, AND CONFUSION WOULD SET IN OFTEN HE TRIED TO EXPLAIN HOW HE FELT. HE MENTIONED HE WANTED HIS FAMILY IN TO ALL HEAR WHERE HE IS AT. ROBERTO HAS DEFINATELY TAKEN A DOWN TURN FROM OUR VISIT TUESDAY. PT HAS ALWAYS BEEN EAGER TO VISIT AND HAVE ME PRAY FOR HIM BEFORE-BUT TODAY IS DIFFERENT. PT IS TO DC TODAY WITH HIS SON, AND HE IS TO GO WITH WOUND VAC WHICH I SENSE IS NOT TO HIS LIKING. SHARED WITH DR CUELLAR AND IDALIA HOWARD MY EXPERIENCE. BOTH WILL FOLLOW UP
--- NOTE | 2020-03-04 14:25 | NUR ---
PATIENT RESTING IN BED. THE STUDENT RN TOOK THE FINAL VITAL SIGNS BEFORE DISCHARGE HOME
--- NOTE | 2020-03-04 14:51 | NUR ---
PT RESTING IN BED EYES CLOSED. DC ORDERS HAVE BEEN WRITTEN WAITING ON SON
--- NOTE | 2020-03-04 15:30 | NUR ---
Spoke with Tiffany. Son is here getting dc instructions. Son will stay at night with Tiffany for the next week and grandchildren will check in on him. Tiffany is anxious to go home. Nurse reviewing instructions an follow up visits with pt and son.
--- NOTE | 2020-03-05 08:49 | DS ---
[facility] [address] [place], [place] [address] Signed ADMISSION DATE: 02/28/2020 DISCHARGE DATE: 03/04/2020 FINAL DIAGNOSIS: Periumbilical postoperative wound abscess. PROCEDURES: 1. Incision and drainage of periumbilical postoperative wound abscess. 2. Explantation mesh. HISTORY OF PRESENT ILLNESS: Tiffany Villafuerte is an 79-year-old gentleman, I met a little over a year ago when he had a wound of his right pretibial area. That had to be evacuated, treated with gauze and then later skin grafted. He and his son did excellence in that regard. He also had a periumbilical incisional hernia from a previous Cindi's resection for diverticular disease. However, he does represent a poor surgical candidate. He had come into the hospital to the emergency room and had to have lysis of adhesions and repair of that incisional hernia with Dr. Flores. Unfortunately, in the recovery room. He was agitated and he tore everything apart and had to go back to the operating room with primary closure of the midline and a small piece of Prolene mesh placed over the midline about 3 cm wide, 10-15 cm in length. He had a subcutaneous drain in place. He had been doing well but then developed erythema, swelling, and finally drainage around the umbilicus. He came back through the emergency room and I was asked to admit him as a general surgeon on-call in Dr. Flores's absence. HOSPITAL COURSE: Tiffany was admitted as above and initially received one dose of Zosyn. He then was placed on cefepime, Flagyl and vancomycin. We did have our Internal Medicine Service follow him as well. He went to the operating room that same day and we completely evacuated that periumbilical wound and took out the mesh sharply with curved Metzenbaum scissors. We used Dakin's solution in the wound for several days and it has cleaned up very nicely. The Gram stain grew out gram-positive cocci and gram-positive bacilli. We have no identification at this point. Yesterday, he was transitioned over to doxycycline 100 mg p.o. b.i.d. He is tolerating regular diet, having good bowel movements and performing his activities of daily living. We had our Wound Care service see him along with the resource management planner. He is going to be discharged to home with his son. Currently, the plan is to continue with the wound VAC that was placed yesterday. However, Tiffany is already complaining about the wound VAC and thinks he wants to just switch over to the gauze. On exam today, his abdomen is obese but soft, nontender. Of course, the wound VAC is in place. Electronically Signed By: MIRI DICKSON MD 03/05/20 0849 PATIENT NAME: TIFFANY DESHPANDE DISCHARGE SUMMARY DATE OF : 38 REPORT #: [id number] PHYSICIAN: MIRI DICKSON MD PCP: ALBANIA BAGLEY MD REPORT IS CONFIDENTIAL AND NOT TO BE RELEASED WITHOUT AUTHORIZATION [address] [address] Signed DISCHARGE PLANS AND MEDICATIONS: Tiffany Villafuerte is going to be discharged home with a prescription for doxycycline 100 mg p.o. b.i.d. for six additional days. Therefore, he will receive a total of 10 days of antibiotics. We will give him Mcdaniels 10/325 one tablet p.o. q.6 hours p.r.n. for severe postoperative pain and wound care. We will dispense 20 tablets, no refills. He can resume all his chronic medications. His metoprolol is up to 37.5 mg p.o. b.i.d. at this point in the hospital. In addition, he was having trouble with insomnia and Benadryl helped some, but he was then transitioning over to trazodone 25-50 mg p.o. at bedtime. He understands that with the wound back he will come into our day surgery area on Mondays and and have the wound care nurse change that out and clean that wound. If he decides to discontinue the wound VAC, he will need saline soaked gauze b.i.d. and his son can help him with that. He can cover that with a dry ABD and wrap his abdomen with his abdominal binder. He knows he can wash with soap and water directly into the wound. However, we do not want him submerged in the bath tub or hot tub, etc. I am going to have him back in my office in about a week or so for followup. He is welcome to see his primary care provider in next 1-3 weeks. I have reviewed this with Tiffany in detail, he has expressed understanding and agrees above plan. Miri Dickson MD ALB/MODL /[id number] cc: MD Awais Burgess MD Copies: ALBANIA BAGLEY MD,AWAIS NEAL ~ Electronically Signed By: MIRI DICKSON MD 03/05/20 0849 PATIENT NAME: TIFFANY DESHPANDE DISCHARGE SUMMARY DATE OF : 38 REPORT #: [id number] PHYSICIAN: MIRI DICKSON MD PCP: ALBANIA BAGLEY MD REPORT IS CONFIDENTIAL AND NOT TO BE RELEASED WITHOUT AUTHORIZATION
== END 2020-03-04 15:30 | disposition home or self-care (01) | DRG 857 ==
LOC: ED 14:42 → MS 19:15 → CCU 19:15 → MS 03-01 09:40
PROVIDERS: ADMIT Colon & Rectal Surgery; ATTEND Colon & Rectal Surgery
PROC: 0WPF0JZ Removal of Synthetic Substitute from Abdominal Wall, Open Approach (ICD-10-PCS; 2020-02-29)
PROC: 0J980ZZ Drainage of Abdomen Subcutaneous Tissue and Fascia, Open Approach (ICD-10-PCS; principal; 2020-02-29 12:30)
DX: T81.42XA Infection following a procedure, deep incisional surgical site, initial encounter (principal); L02.211 Cutaneous abscess of abdominal wall; I48.21 Permanent atrial fibrillation; Z20.828 Contact with and (suspected) exposure to other viral communicable diseases; G89.18 Other acute postprocedural pain; E66.9 Obesity, unspecified; I25.10 Atherosclerotic heart disease of native coronary artery without angina pectoris; I12.9 Hypertensive chronic kidney disease with stage 1 through stage 4 chronic kidney disease, or unspecified chronic kidney disease; N18.30 Chronic kidney disease, stage 3 unspecified; J43.9 Emphysema, unspecified; N40.0 Benign prostatic hyperplasia without lower urinary tract symptoms; E79.0 Hyperuricemia without signs of inflammatory arthritis and tophaceous disease; E78.5 Hyperlipidemia, unspecified; E03.9 Hypothyroidism, unspecified; M54.9 Dorsalgia, unspecified; K59.00 Constipation, unspecified; G89.29 Other chronic pain; M48.00 Spinal stenosis, site unspecified; G25.81 Restless legs syndrome; G47.01 Insomnia due to medical condition; Z66 Do not resuscitate; Z68.35 Body mass index [BMI] 35.0-35.9, adult; Z87.891 Personal history of nicotine dependence; Z91.041 Radiographic dye allergy status; Z79.01 Long term (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; Z95.5 Presence of coronary angioplasty implant and graft; Z79.51 Long term (current) use of inhaled steroids; Z79.899 Other long term (current) drug therapy
CPT/HCPCS: 00832; 36415; 64448; 74176; 76942; 80048; 80053; 80202; 81001; 83605; 83735; 84100; 85025; 85610; 93005; 93010; 94640; 94760; 94762; 96374; 99284-25; C9113; C9803; J0131; J0330; J0692; J1100; J1650; J2060; J2270; J2274; J2370; J2405; J2704; J3370; J3475; J3480; J7042; J7060; J7121

== ENCOUNTER 2020-08-08 05:56 | Emergency (ER) | payer MEDICARE, OTHER ==
[~2020-08-08] VITALS: Ht 172.7 cm; Wt 107.3 kg
[~2020-08-08 05:56] MED LIST changes: +CARVEDILOL6.25 MG PO; +FUROSEMIDE80 MG PO; +PROMETHAZINE HC25 M1 PO
== END 2020-08-08 08:37 | disposition home or self-care (01) ==
LOC: ED 05:56
DX: K59.00 Constipation, unspecified (principal); I10 Essential (primary) hypertension; J44.9 Chronic obstructive pulmonary disease, unspecified; I48.91 Unspecified atrial fibrillation; E78.5 Hyperlipidemia, unspecified; Z79.899 Other long term (current) drug therapy; Z88.8 Allergy status to other drugs, medicaments and biological substances; Z79.01 Long term (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
CPT/HCPCS: 74176; 99284-25

== ENCOUNTER 2020-10-19 09:54 | Emergency (ER) | payer MEDICARE, OTHER ==
[~2020-10-19] VITALS: Ht 172.7 cm; Wt 107.3 kg
[2020-10-19] MEDS ORDERED: FUROSEMIDE80 MG PO (10:07)
== END 2020-10-19 11:48 | disposition home or self-care (01) ==
LOC: ED 09:54
DX: S93.601A Unspecified sprain of right foot, initial encounter (principal); X58.XXXA Exposure to other specified factors, initial encounter; I10 Essential (primary) hypertension; J44.9 Chronic obstructive pulmonary disease, unspecified; I48.91 Unspecified atrial fibrillation; E78.5 Hyperlipidemia, unspecified; M10.9 Gout, unspecified; Z88.8 Allergy status to other drugs, medicaments and biological substances; Z79.899 Other long term (current) drug therapy; Z79.01 Long term (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
CPT/HCPCS: 73610; 73630; 99283-25

== ENCOUNTER 2020-11-04 11:48 | Emergency (ER) | payer MEDICARE, OTHER ==
[~2020-11-04] VITALS: Ht 172.7 cm; Wt 107.1 kg
--- OUTSIDE RECORDS SUMMARY | 2020-11-04 11:50 | XMS ---
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 [place] VISIT COUNT (12 MO.) [address] [place] [address] TOTAL 9 NOTE: Visits indicate total known visits. ED/UCC VISIT TRACKING (12 MO.) 11/04/2020 11:49 [facility] [place] TYPE: Emergency COMPLAINT: - CONSTIPATED 10/19/2020 09:55 [facility] [place] TYPE: Emergency COMPLAINT: - RT FOOT SWELLING DIAGNOSES: - Other alf (current) drug therapy - remote computer terminal operator (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 - Unspecified sprain of right foot, initial encounter - Unspecified atrial fibrillation - Allergy status to other drugs, medicaments and biological substances - Chronic obstructive pulmonary disease, unspecified - Essential (primary) hypertension - Gout, unspecified - Exposure to other specified factors, initial encounter - Hyperlipidemia, unspecified 08/08/2020 05:57 [facility] [place] TYPE: Emergency COMPLAINT: - CONSTIPATION DIAGNOSES: - Other alf (current) drug therapy - Allergy status to other drugs, medicaments and biological substances - Hyperlipidemia, unspecified - Unspecified atrial fibrillation - Constipation, unspecified - Chronic obstructive pulmonary disease, unspecified - Essential (primary) hypertension - remote computer terminal operator (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 03/22/2020 08:28 [facility] [place] TYPE: Emergency COMPLAINT: - PUMP IS NOT WORKING DIAGNOSES: - Encounter for other general examination 02/28/2020 14:42 [facility] [place] TYPE: Emergency COMPLAINT: - WEAKNESS 01/23/2020 06:44 [facility] [place] TYPE: Emergency COMPLAINT: - POST OP PROBLEM DIAGNOSES: - MCC (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 - MCC (current) use of opiate analgesic - Hyperlipidemia, unspecified - Postprocedural hemorrhage of a digestive system organ or structure following a digestive system procedure - Allergy status to other drugs, medicaments and biological substances - Unspecified atrial fibrillation - Chronic obstructive pulmonary disease, unspecified - Hypertensive heart disease without heart failure - Other assistant terminal manager (current) drug therapy - Personal history of nicotine dependence - Postprocedural hemorrhage of a digestive system organ or structure following a digestive system procedure 01/08/2020 20:25 [facility] [place] TYPE: Emergency COMPLAINT: - FLANK PAIN 12/03/2019 09:28 [facility] [place] TYPE: Emergency COMPLAINT: - ABD PAIN DIAGNOSES: - Ventral hernia without obstruction or gangrene - Chronic obstructive pulmonary disease, unspecified - Unspecified abdominal pain - Other alf (current) drug therapy - Essential (primary) hypertension - Allergy status to other drugs, medicaments and biological substances - Unspecified atrial fibrillation - Hyperlipidemia, unspecified 11/24/2019 05:34 [facility] [place] TYPE: Emergency COMPLAINT: - ABD PAIN DIAGNOSES: - Other assistant terminal manager (current) drug therapy - Hyperlipidemia, unspecified - Personal history of nicotine dependence - Chronic obstructive pulmonary disease, unspecified - Essential (primary) hypertension - Allergy status to other drugs, medicaments and biological substances - Unspecified atrial fibrillation - remote computer terminal operator (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 - Unspecified abdominal pain INPATIENT VISIT TRACKING (12 MO.) 02/28/2020 19:[address] 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 kidney disease, or unspecified chronic kidney disease - Hyperlipidemia, unspecified - Other alf (current) drug therapy - Insomnia due to medical condition - Infection following a procedure, other surgical site, initial encounter - Hypertensive chronic kidney disease with stage 1 through stage 4 chronic kidney disease, or unspecified chronic kidney disease - Obesity, unspecified - Radiographic dye allergy status - Contact with and (suspected) exposure to other viral communicable diseases - Do not resuscitate - Chronic kidney disease, stage 3 unspecified - Personal history of nicotine dependence - Body mass index [BMI] 35.0-35.9, adult - Hyperlipidemia, unspecified - Emphysema, unspecified - Body mass index [BMI] 35.0-35.9, adult - Emphysema, unspecified - CHRONIC KIDNEY DISEASE, STAGE 3 UNSPECIFIED - Presence of coronary angioplasty implant and graft - Other chronic pain - Other chronic pain - Contact with and (suspected) exposure to other viral communicable diseases - CHRONIC KIDNEY DISEASE, STAGE 3 UNSPECIFIED - Hyperuricemia without signs of inflammatory arthritis and tophaceous disease - Infection following a procedure, deep incisional surgical site, initial encounter - Do not resuscitate - remote computer terminal operator (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 - Benign prostatic hyperplasia without lower urinary tract symptoms - Atherosclerotic heart disease of [place] coronary artery without angina pectoris - Permanent atrial fibrillation - Dorsalgia, unspecified - MCC (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 - Chronic kidney disease, stage 3 unspecified - Permanent atrial fibrillation - remote computer terminal operator (current) use of inhaled steroids - Infection following a procedure, deep incisional surgical site, initial encounter - Constipation, unspecified - Benign prostatic hyperplasia without lower urinary tract symptoms - Body mass index [BMI] 35.0-35.9, adult - Spinal stenosis, site unspecified - Restless legs syndrome - Obesity, unspecified - Other alf (current) drug therapy - Dorsalgia, unspecified - Hypothyroidism, unspecified - Other acute postprocedural pain - Constipation, unspecified - Atherosclerotic heart disease of [place] coronary artery without angina pectoris - Hyperuricemia without signs of inflammatory arthritis and tophaceous disease - Insomnia due to medical condition - Cutaneous abscess of abdominal wall - Restless legs syndrome - Personal history of nicotine dependence - Other acute postprocedural pain - Cutaneous abscess of abdominal wall - MCC (current) use of inhaled steroids - Spinal stenosis, site unspecified - Presence of coronary angioplasty implant and graft - Radiographic dye allergy status - Hypothyroidism, unspecified 01/09/2020 00:08 [facility] TYPE: Medical Surgical COMPLAINT: - BOWEL OBSTRUCTION DIAGNOSES: - Spondylolisthesis, lumbar region - Presence of coronary angioplasty implant and graft - Other acute postprocedural pain - Hypoxemia - Radiographic dye allergy status - MCC (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 - Disruption of internal operation (surgical) wound, not elsewhere classified, initial encounter - Dependence on supplemental oxygen - Heart failure, unspecified - Morbid (severe) obesity due to excess calories - Incisional hernia without obstruction or gangrene - Hypokalemia - MCC (current) use of opiate analgesic - Nicotine dependence, chewing tobacco, uncomplicated - Incisional hernia with obstruction, without gangrene - Other alf (current) drug therapy - Chronic obstructive pulmonary disease, unspecified - Benign prostatic hyperplasia without lower urinary tract symptoms - Body mass index [BMI] 29.0-29.9, adult - remote computer terminal operator (current) use of inhaled steroids - Contact with and (suspected) exposure to other viral communicable diseases - Hypertensive heart disease with heart failure - Gout, unspecified - Chronic atrial fibrillation, unspecified [email or web address]
[2020-11-04] MEDS ORDERED: LEVOTHYROXINE50 MCG PO (13:52)
[2020-11-04] MEDS ORDERED: SPIRIVA18 MCG INH (13:53)
== END 2020-11-04 21:31 | disposition home or self-care (01) ==
LOC: ED 11:48
DX: R19.7 Diarrhea, unspecified (principal); E87.6 Hypokalemia; I10 Essential (primary) hypertension; J44.9 Chronic obstructive pulmonary disease, unspecified; I48.91 Unspecified atrial fibrillation; E78.5 Hyperlipidemia, unspecified; M10.9 Gout, unspecified; Z88.8 Allergy status to other drugs, medicaments and biological substances; Z79.899 Other long term (current) drug therapy; Z79.01 Long term (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
CPT/HCPCS: 74176; 80053; 83690; 83735; 85025; 85610; 96365; 96366; 99284-25; J3480; J7030

== ENCOUNTER 2021-01-06 19:17 | Emergency (ER) | payer MEDICARE, OTHER ==
[~2021-01-06] VITALS: Ht 172.7 cm; Wt 108.0 kg
[2021-01-06] MEDS ORDERED: TRAMADOL HCL50 MG PO (20:31)
== END 2021-01-06 22:10 | disposition home or self-care (01) ==
LOC: ED 19:17
DX: R60.0 Localized edema (principal); I10 Essential (primary) hypertension; J44.9 Chronic obstructive pulmonary disease, unspecified; I48.91 Unspecified atrial fibrillation; E78.5 Hyperlipidemia, unspecified; M10.9 Gout, unspecified; Z88.8 Allergy status to other drugs, medicaments and biological substances; Z79.899 Other long term (current) drug therapy; Z79.01 Long term (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
CPT/HCPCS: 85610; 93971; 99284-25

== ENCOUNTER 2021-04-15 13:19 | Emergency (ER) | payer MEDICARE, OTHER ==
[~2021-04-15] VITALS: Ht 172.7 cm; Wt 108.9 kg
[2021-04-15] MEDS ORDERED: TAMSULOSIN HCL0.4 MG PO (13:43)
[2021-04-15] MEDS ORDERED: VITAMIN D21250 MCG PO (13:44)
[2021-04-15] MEDS ORDERED: COLCRYS0.6 MG PO (13:44)
--- NOTE | 2021-04-15 19:57 | EKG ---
[facility] [address] [facility] [place], [place] [address] Signed Atrial fibrillation with rapid ventricular response Abnormal ECG When compared with ECG of 28-FEB-2020 23:12, Non-specific change in ST segment in Inferior leads Confirmed by RUSS CUELLAR DO ([id number]) on 04/15/2021 7:57:40 PM Electronically Signed By: RUSS CUELLAR DO 04/15/211956 PATIENT NAME: KORIN DESHPANDE AUBRIE Electrocardiogram DATE OF : 38 PHYSICIAN: RUSS CUELLAR DO REPORT #: [id number] REPORT IS CONFIDENTIAL AND NOT TO BE RELEASED WITHOUT AUTHORIZATION
== END 2021-04-15 15:46 | disposition home or self-care (01) ==
LOC: ED 13:19
DX: I11.0 Hypertensive heart disease with heart failure (principal); I50.1 Left ventricular failure, unspecified; J44.9 Chronic obstructive pulmonary disease, unspecified; I48.91 Unspecified atrial fibrillation; E78.5 Hyperlipidemia, unspecified; M10.9 Gout, unspecified; Z88.8 Allergy status to other drugs, medicaments and biological substances; Z79.899 Other long term (current) drug therapy; Z79.01 Long term (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
CPT/HCPCS: 71045; 80053; 83880; 84484; 85025; 85610; 93005; 93010; 96374; 99285-25; J1940; U0003

== ENCOUNTER 2021-07-31 15:50 | Emergency (ER) | payer MEDICARE, OTHER ==
[~2021-07-31] VITALS: Ht 172.7 cm; Wt 96.5 kg
[~2021-07-31 15:50] MED LIST changes: +COLCRYS0.6 MG PO; +VITAMIN D21250 MCG PO
[2021-07-31] MEDS ORDERED: POTASSIUM CHLO20 ME1 PO (17:16)
[2021-07-31] MEDS ORDERED: SPIRONOLACTONE25 MG PO (17:16)
[2021-07-31] MEDS ORDERED: PREDNISONE20 MG PO (17:35)
--- NOTE | 2021-08-01 15:58 | EKG ---
[facility] [address] [facility] [place] [address] Signed Atrial fibrillation Nonspecific ST and T wave abnormality Abnormal ECG When compared with ECG of 15-APR-2021 13:32, Nonspecific T wave abnormality now evident in Lateral leads Confirmed by SAWYER COTTER MD ([id number]) on 08/01/2021 3:57:50 PM Electronically Signed By: SAWYER COTTER MD 08/01/21 1558 PATIENT NAME: KORIN DESHPANDE AUBRIE Electrocardiogram DATE OF : 38 PHYSICIAN: SAWYER COTTER MD REPORT #: [id number] REPORT IS CONFIDENTIAL AND NOT TO BE RELEASED WITHOUT AUTHORIZATION
== END 2021-07-31 19:10 | disposition home or self-care (01) ==
LOC: ED 15:50
DX: J44.1 Chronic obstructive pulmonary disease with (acute) exacerbation (principal); I11.0 Hypertensive heart disease with heart failure; I50.9 Heart failure, unspecified; J44.9 Chronic obstructive pulmonary disease, unspecified; I48.91 Unspecified atrial fibrillation; E78.5 Hyperlipidemia, unspecified; M10.9 Gout, unspecified; Z88.8 Allergy status to other drugs, medicaments and biological substances; Z91.041 Radiographic dye allergy status; Z79.899 Other long term (current) drug therapy; Z79.01 Long term (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
CPT/HCPCS: 36415; 71045; 74018; 80048; 83880; 84484; 85025; 85610; 93005; 93010; 94640; 96374; 96375; 99285-25; J1940; J2930

== ENCOUNTER 2021-08-07 08:46 | Emergency (ER) | payer MEDICARE, OTHER ==
[~2021-08-07] VITALS: Ht 172.7 cm; Wt 96.5 kg
[~2021-08-07 08:46] MED LIST changes: +POTASSIUM CHLO20 ME1 PO; +PREDNISONE20 MG PO; +SPIRONOLACTONE25 MG PO
--- OUTSIDE RECORDS SUMMARY | 2021-08-07 08:48 | XMS ---
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 Care History Medical/Surgical 11/10/2020 [facility] - CHW CONTACTED PATIENT-DISCUSSED IMPORTANCE OF FOLLOWING UP WITH PCP. PATIENT STATED HE WOULD CALL PCP OFFICE TO SCHEDULE AN APT. - PATIENT CALLED CHW BACK AND STATED NEXT FOLLOW UP APT WITH PCP DR BAGLEY IS ON 11/12/20. E.D. VISIT COUNT (12 MO.) [address] [facility] TOTAL 7 NOTE: Visits indicate total known visits. ED/UCC VISIT TRACKING (12 MO.) 08/07/2021 08:46 [facility] TYPE: Emergency COMPLAINT: - CONSTIPATION 2021 15:50 [facility] [place] TYPE: Emergency COMPLAINT: - SOB DIAGNOSES: - Heart failure, unspecified - 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 agent (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 - Gout, unspecified - Unspecified atrial fibrillation - Hypertensive heart disease with heart failure - Hyperlipidemia, unspecified - Chronic obstructive pulmonary disease, unspecified - Radiographic dye allergy status - Allergy status to other drugs, medicaments and biological substances - Shortness of breath - Other assisted (current) drug therapy - Chronic obstructive pulmonary disease with (acute) exacerbation 04/15/2021 13:20 [facility] [place] TYPE: Emergency COMPLAINT: - SOB DIAGNOSES: - Other assisted (current) drug therapy - Gout, unspecified - Chronic obstructive pulmonary disease, unspecified - Unspecified atrial fibrillation - Shortness of breath - Allergy status to other drugs, medicaments and biological substances - Hyperlipidemia, unspecified - Hypertensive heart disease with heart failure - Left ventricular failure, unspecified - pen[facility]iary (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 01/06/2021 19:18 [facility] [place] TYPE: Emergency COMPLAINT: - RT LEG PAIN/NO INJURY DIAGNOSES: - Allergy status to other drugs, medicaments and biological substances - Unspecified atrial fibrillation - Gout, unspecified - Other 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 agent (current) drug therapy - Pain in right leg - Hyperlipidemia, unspecified - Chronic obstructive pulmonary disease, unspecified - Localized edema - 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 agent (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 - Essential (primary) hypertension 11/04/2020 11:[address] [facility] [place] TYPE: Emergency COMPLAINT: - CONSTIPATED DIAGNOSES: - Chronic obstructive pulmonary disease, unspecified - Unspecified atrial fibrillation - [facility]entiary (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 - Gout, unspecified - Other 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 agent (current) drug therapy - Hyperlipidemia, unspecified - Diarrhea, unspecified - Allergy status to other drugs, medicaments and biological substances - Hypokalemia - Constipation, unspecified - Essential (primary) hypertension 10/19/2020 09:55 [facility] [place] TYPE: Emergency COMPLAINT: - RT FOOT SWELLING DIAGNOSES: - Other 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 agent (current) drug therapy - 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 agent (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 - Unspecified sprain of right foot, initial encounter - Unspecified atrial fibrillation - Allergy status to other drugs, medicaments and biological substances - Chronic obstructive pulmonary disease, unspecified - Essential (primary) hypertension - Gout, unspecified - Exposure to other specified factors, initial encounter - Hyperlipidemia, unspecified 08/08/2020 05:57 [facility] [place] TYPE: Emergency COMPLAINT: - CONSTIPATION DIAGNOSES: - Other 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 agent (current) drug therapy - Allergy status to other drugs, medicaments and biological substances - Hyperlipidemia, unspecified - Unspecified atrial fibrillation - Constipation, unspecified - Chronic obstructive pulmonary disease, unspecified - Essential (primary) hypertension - penitentiary (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 INPATIENT VISIT TRACKING (12 MO.) No inpatient visits to display in this time frame [email or web address]
[2021-08-07] MEDS ORDERED: CITROMA296 ML PO (12:19)
[2021-08-07] MEDS ORDERED: MIRALAX17 GM PO (12:19)
[2021-08-07] MEDS ORDERED: STOOL SOFTENER240 MG PO (12:19)
[2021-08-07] MEDS ORDERED: SENNA8.6 MG PO (12:19)
--- NOTE | 2021-08-07 21:13 | EKG ---
[facility] [address] [facility] [place], [place] [address] Signed Atrial fibrillation Nonspecific T wave abnormality Prolonged QT Abnormal ECG When compared with ECG of 31-JUL-2021 15:54, No significant change was found Confirmed by GEOVANNI JORDAN MD ([id number]) on 08/07/2021 9:13:36 PM Electronically Signed By: GEOVANNI JORDAN MD 08/07/212112 PATIENT NAME: KORIN DESHPANDE AUBRIE Electrocardiogram DATE OF : 38 PHYSICIAN: GEOVANNI JORDAN MD REPORT #: [id number] REPORT IS CONFIDENTIAL AND NOT TO BE RELEASED WITHOUT AUTHORIZATION
== END 2021-08-07 12:40 | disposition home or self-care (01) ==
LOC: ED 08:46
DX: K59.00 Constipation, unspecified (principal); J44.9 Chronic obstructive pulmonary disease, unspecified; I10 Essential (primary) hypertension; M10.9 Gout, unspecified; E78.5 Hyperlipidemia, unspecified; I48.91 Unspecified atrial fibrillation; Z79.899 Other long term (current) drug therapy; Z91.041 Radiographic dye allergy status; Z79.52 Long term (current) use of systemic steroids; Z79.01 Long term (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
CPT/HCPCS: 36415; 71046; 74018; 80053; 82803; 83880; 84484; 85025; 93005; 93010; 94640; 99285-25

== ENCOUNTER 2021-08-28 09:05 | Emergency (ER) | payer MEDICARE, OTHER ==
[~2021-08-28] VITALS: Ht 172.7 cm; Wt 96.5 kg
[~2021-08-28 09:05] MED LIST changes: +CITROMA296 ML PO; +MIRALAX17 GM PO; +SENNA8.6 MG PO; +STOOL SOFTENER240 MG PO
--- OUTSIDE RECORDS SUMMARY | 2021-08-28 09:12 | XMS ---
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 Care History Medical/Surgical 11/10/2020 [facility] - CHW CONTACTED PATIENT-DISCUSSED IMPORTANCE OF FOLLOWING UP WITH PCP. PATIENT STATED HE WOULD CALL PCP OFFICE TO SCHEDULE AN APT. - PATIENT CALLED CHW BACK AND STATED NEXT FOLLOW UP APT WITH PCP DR BAGLEY IS ON 11/12/20. E.D. VISIT COUNT (12 MO.) [address] [facility] TOTAL 7 NOTE: Visits indicate total known visits. 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 - Unspecified atrial fibrillation 2021 15:50 [facility] [place] TYPE: Emergency COMPLAINT: - SOB DIAGNOSES: - Heart failure, unspecified - group home (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 - Gout, unspecified - Unspecified atrial fibrillation - Hypertensive heart disease with heart failure - Hyperlipidemia, unspecified - Chronic obstructive pulmonary disease, unspecified - Radiographic dye allergy status - Allergy status to other drugs, medicaments and biological substances - Shortness of breath - Other [facility] (current) drug therapy - Chronic obstructive pulmonary disease with (acute) exacerbation 04/15/2021 13:20 [facility] [place] TYPE: Emergency COMPLAINT: - SOB DIAGNOSES: - Other [facility] (current) drug therapy - Gout, unspecified - Chronic obstructive pulmonary disease, unspecified - Unspecified atrial fibrillation - Shortness of breath - Allergy status to other drugs, medicaments and biological substances - Hyperlipidemia, unspecified - Contact with and (suspected) exposure to COVID-19 - Hypertensive heart disease with heart failure - Left ventricular failure, unspecified - 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 01/06/2021 19:18 [facility] TYPE: Emergency COMPLAINT: - RT LEG PAIN/NO INJURY DIAGNOSES: - Allergy status to other drugs, medicaments and biological substances - Unspecified atrial fibrillation - Gout, unspecified - Other joint terminal attack controller (current) drug therapy - Pain in right leg - Hyperlipidemia, unspecified - Chronic obstructive pulmonary disease, unspecified - Localized edema - 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 - Essential (primary) hypertension 11/04/2020 11:49 [facility] TYPE: Emergency COMPLAINT: - CONSTIPATED DIAGNOSES: - Chronic obstructive pulmonary disease, unspecified - Unspecified atrial fibrillation - group home (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 - Gout, unspecified - Other joint terminal attack controller (current) drug therapy - Hyperlipidemia, unspecified - Diarrhea, unspecified - Allergy status to other drugs, medicaments and biological substances - Hypokalemia - Constipation, unspecified - Essential (primary) hypertension 10/19/2020 09:55 [facility] TYPE: Emergency COMPLAINT: - RT FOOT SWELLING DIAGNOSES: - Other [facility] (current) drug therapy - group home (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 - Unspecified sprain of right foot, initial encounter - Unspecified atrial fibrillation - Allergy status to other drugs, medicaments and biological substances - Chronic obstructive pulmonary disease, unspecified - Essential (primary) hypertension - Gout, unspecified - Exposure to other specified factors, initial encounter - Hyperlipidemia, unspecified INPATIENT VISIT TRACKING (12 MO.) No inpatient visits to display in this time frame [email or web address]
--- NOTE | 2021-08-30 14:22 | EKG ---
[facility] [address] [facility] [place] [address] Signed Atrial fibrillation with a competing junctional pacemaker Nonspecific T wave abnormality Prolonged QT Abnormal ECG No previous ECGs available Confirmed by SAWYER COTTER MD ([id number]) on 08/30/2021 2:22:38 PM Electronically Signed By: SAWYER COTTER MD 08/30/211421 PATIENT NAME: KORIN DESHPANDE UABRIE Electrocardiogram DATE OF : 38 PHYSICIAN: SAWYER COTTER MD REPORT #: [id number] REPORT IS CONFIDENTIAL AND NOT TO BE RELEASED WITHOUT AUTHORIZATION
== END 2021-08-28 12:25 | disposition home or self-care (01) ==
LOC: ED 09:05
DX: K59.00 Constipation, unspecified (principal); R79.0 Abnormal level of blood mineral; I10 Essential (primary) hypertension; J44.9 Chronic obstructive pulmonary disease, unspecified; I48.91 Unspecified atrial fibrillation; M10.9 Gout, unspecified; Z79.899 Other long term (current) drug therapy; Z88.8 Allergy status to other drugs, medicaments and biological substances; Z79.52 Long term (current) use of systemic steroids; Z79.01 Long term (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; Z79.51 Long term (current) use of inhaled steroids
CPT/HCPCS: 36415; 71045; 74176; 80053; 83880; 85025; 85610; 93005; 93010; 99284-25

== ENCOUNTER 2021-09-11 11:16 | Emergency (ER) | payer MEDICARE, OTHER ==
[~2021-09-11] VITALS: Ht 172.7 cm; Wt 96.5 kg
--- OUTSIDE RECORDS SUMMARY | 2021-09-11 11:19 | XMS ---
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 Care History Medical/Surgical 11/10/2020 [facility] - CHW CONTACTED PATIENT-DISCUSSED IMPORTANCE OF FOLLOWING UP WITH PCP. PATIENT STATED HE WOULD CALL PCP OFFICE TO SCHEDULE AN APT. - PATIENT CALLED CHW BACK AND STATED NEXT FOLLOW UP APT WITH PCP DR BAGLEY IS ON 11/12/20. E.D. VISIT COUNT (12 MO.) [address] [facility] [place] TOTAL 8 NOTE: Visits indicate total known visits. ED/UCC VISIT TRACKING (12 MO.) 09/11/2021 11:17 [facility] TYPE: Emergency COMPLAINT: - RT LEG PAIN 08/28/2021 09:06 [facility] TYPE: Emergency COMPLAINT: - CONSTIPATION DIAGNOSES: - Allergy status to other drugs, medicaments and biological substances - Essential (primary) hypertension - Unspecified atrial fibrillation - Constipation, unspecified - Chronic obstructive pulmonary disease, unspecified - Gout, unspecified - jail (current) use of systemic steroids - Unspecified abdominal pain - Abnormal level of blood mineral - Other oysterman (current) drug therapy - buttermaker continuous churn (current) use of inhaled steroids - jail (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 08/07/2021 08:46 [facility] TYPE: Emergency COMPLAINT: - CONSTIPATION DIAGNOSES: - jail (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 - Radiographic dye allergy status - Gout, unspecified - Essential (primary) hypertension - Other retirement (current) drug therapy - Chronic obstructive pulmonary disease, unspecified - Hyperlipidemia, unspecified - Constipation, unspecified - jail (current) use of systemic steroids - Unspecified atrial fibrillation 2021 15:50 [facility] TYPE: Emergency COMPLAINT: - SOB DIAGNOSES: - Heart failure, unspecified - 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 continuous 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 (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 - Gout, unspecified - Unspecified atrial fibrillation - Hypertensive heart disease with heart failure - Hyperlipidemia, unspecified - Chronic obstructive pulmonary disease, unspecified - Radiographic dye allergy status - Allergy status to other drugs, medicaments and biological substances - Shortness of breath - Other oysterman (current) drug therapy - Chronic obstructive pulmonary disease with (acute) exacerbation 04/15/2021 13:20 [facility] TYPE: Emergency COMPLAINT: - SOB DIAGNOSES: - Other oysterman (current) drug therapy - Gout, unspecified - Chronic obstructive pulmonary disease, unspecified - Unspecified atrial fibrillation - Shortness of breath - Allergy status to other drugs, medicaments and biological substances - Hyperlipidemia, unspecified - Contact with and (suspected) exposure to COVID-19 - Hypertensive heart disease with heart failure - Left ventricular failure, unspecified - jail (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 01/06/2021 19:18 [facility] TYPE: Emergency COMPLAINT: - RT LEG PAIN/NO INJURY DIAGNOSES: - Allergy status to other drugs, medicaments and biological substances - Unspecified atrial fibrillation - Gout, unspecified - Other oysterman (current) drug therapy - Pain in right leg - Hyperlipidemia, unspecified - Chronic obstructive pulmonary disease, unspecified - Localized edema - jail (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 - Essential (primary) hypertension 11/04/2020 11:49 [facility] TYPE: Emergency COMPLAINT: - CONSTIPATED DIAGNOSES: - Chronic obstructive pulmonary disease, unspecified - Unspecified atrial fibrillation - jail (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 - Gout, unspecified - Other oysterman (current) drug therapy - Hyperlipidemia, unspecified - Diarrhea, unspecified - Allergy status to other drugs, medicaments and biological substances - Hypokalemia - Constipation, unspecified - Essential (primary) hypertension 10/19/2020 09:[address] [facility] [place] TYPE: Emergency COMPLAINT: - RT FOOT SWELLING DIAGNOSES: - Other oysterman (current) drug therapy - buttermaker continuous churn (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 - Unspecified sprain [...] visits to display in this time frame [email or web address]
== END 2021-09-11 13:20 | disposition home or self-care (01) ==
LOC: ED 11:16
DX: M71.21 Synovial cyst of popliteal space [Baker], right knee (principal); Z79.01 Long term (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; I10 Essential (primary) hypertension; J44.9 Chronic obstructive pulmonary disease, unspecified; I48.91 Unspecified atrial fibrillation; E78.5 Hyperlipidemia, unspecified; M10.9 Gout, unspecified; Z88.8 Allergy status to other drugs, medicaments and biological substances; Z79.899 Other long term (current) drug therapy; Z91.041 Radiographic dye allergy status
CPT/HCPCS: 36415; 71045; 80053; 83880; 85025; 85610; 93971; 99284-25; A9270

== ENCOUNTER 2021-09-22 17:52 | Inpatient (IN) | payer MEDICARE, OTHER ==
[~2021-09-22] VITALS: Ht 172.7 cm; Wt 103.7 kg
--- OUTSIDE RECORDS SUMMARY | 2021-09-22 17:55 | XMS ---
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 Care History Medical/Surgical 11/10/2020 [facility] - [facility]W CONTACTED PATIENT-DISCUSSED IMPORTANCE OF FOLLOWING UP WITH PCP. PATIENT STATED HE WOULD CALL PCP OFFICE TO SCHEDULE AN APT. - PATIENT CALLED CHW BACK AND STATED NEXT FOLLOW UP APT WITH PCP DR BAGLEY IS ON 11/12/20. E.D. VISIT COUNT (12 MO.) [address] [facility] TOTAL 9 NOTE: Visits indicate total known visits. ED/UCC VISIT TRACKING (12 MO.) 09/22/2021 17:52 [facility] TYPE: Emergency COMPLAINT: - WEAKNESS 09/11/2021 11:17 [facility] TYPE: Emergency COMPLAINT: - RT LEG PAIN DIAGNOSES: - Radiographic dye allergy status - Synovial cyst of popliteal space [Carlos], right knee - Dyspnea, unspecified - Allergy status to other drugs, medicaments and biological substances - Unspecified atrial fibrillation - Essential (primary) hypertension - 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 agent (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 - Hyperlipidemia, unspecified - Chronic obstructive pulmonary disease, unspecified - Other tank terminal gauger (current) drug therapy - Gout, unspecified 08/28/2021 09:06 [facility] TYPE: Emergency COMPLAINT: - CONSTIPATION DIAGNOSES: - Allergy status to other drugs, medicaments and biological substances - Essential (primary) hypertension - Unspecified atrial fibrillation - Constipation, unspecified - Chronic obstructive pulmonary disease, unspecified - Gout, unspecified - group home (current) use of systemic steroids - Unspecified abdominal pain - Abnormal level of blood mineral - Other tank terminal gauger (current) drug therapy - group home (current) use of inhaled steroids - group home (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 08/07/2021 08:46 [facility] TYPE: Emergency COMPLAINT: - CONSTIPATION DIAGNOSES: - 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 agent (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 - Radiographic dye allergy status - Gout, unspecified - Essential (primary) hypertension - Other tank terminal gauger (current) drug therapy - Chronic obstructive pulmonary disease, unspecified - Hyperlipidemia, unspecified - Constipation, unspecified - group home (current) use of systemic steroids - Unspecified [...] substances - Shortness of breath - Other tank terminal gauger (current) drug therapy - Chronic obstructive pulmonary disease with (acute) exacerbation 04/15/2021 13:20 [facility] TYPE: Emergency COMPLAINT: - SOB DIAGNOSES: - Other tank terminal gauger (current) drug therapy - Gout, unspecified - Chronic obstructive pulmonary disease, unspecified - Unspecified atrial fibrillation - Shortness of breath - Allergy status to other drugs, medicaments and biological substances - Hyperlipidemia, unspecified - Contact with and (suspected) exposure to COVID-19 - Hypertensive heart disease with heart failure - Left ventricular failure, unspecified - 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 agent (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 01/06/2021 19:18 [facility] TYPE: Emergency COMPLAINT: - RT LEG PAIN/NO INJURY DIAGNOSES: - Allergy status to other drugs, medicaments and biological substances - Unspecified atrial fibrillation - Gout, unspecified - Other care home (current) drug therapy - Pain in right leg - Hyperlipidemia, unspecified - Chronic obstructive pulmonary disease, unspecified - Localized edema - group home (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 - Essential (primary) hypertension 11/04/2020 11:49 [facility] TYPE: Emergency COMPLAINT: - CONSTIPATED DIAGNOSES: - Chronic obstructive pulmonary disease, unspecified - Unspecified atrial fibrillation - 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
--- NOTE | 2021-09-22 21:11 | EKG ---
[facility] [address] [place] [address] Signed Atrial fibrillation N[address]pecific ST and T wave abnormality Abnormal ECG When compared with ECG of 28-AUG-2021 09:55, Nonspecific T wave abnormality, worse in Anterior leads Confirmed by GEOVANNI JORDAN MD ([id number] on 09/22/2021 9:11:28 PM Electronically Signed By: GEOVANNI JORDAN MD 09/22/212110 PATIENT NAME: KORIN DESHPANDE AUBRIE Electrocardiogram DATE OF : 38 PHYSICIAN: GEOVANNI JORDAN MD REPORT #: [id number] REPORT IS CONFIDENTIAL AND NOT TO BE RELEASED WITHOUT AUTHORIZATION
--- NOTE | 2021-09-22 23:49 | NUR ---
PT TO FLOOR AT 2250 FROM ED VIA STRETCHER. PT ABLE TO SLIDE SELF FROM STRETCHER TO BED WITH 1PA. ALERT AND ORIENTED. EXTREMELY HARD OF HEARING IN RIGHT EAT WITH HEARING AID PRESENT. DOES NOT HEAR IN LEFT EAR. ATTEMPTED TO COMMUNICATE WITH WHITE BOARD. PT STATES "MY READING AND WRITING AREN'T GOOD EITHER." PT ABLE TO HEAR SOME WITH LOUD SLOW VOICE. ORDERS RECEIVED. IVF INFUSING WNL. TELE #7 PLACED. AFIB. HR 90'S-100'S. PT DENIES CHEST PAIN OR SOB. ASSESSMENT COMPLETE. RLE TIFFANIE AND EDEMATOUS. PT STATES CHRONIC. REPORTS PAIN /10. PRN FOR PAIN AND SLEEP ADMIN PER EMAR. ASSISTED PT TO REPOSITION IN BED. PT ORIENTED TO ROOM AND NURSE CALL LIGHT. PT VERBALIZES UNDERSTANDING. WARM BLANKETS PROVIDED. NO FURTHER NEEDS AT THIS TIME. CALL LIGHT IN REACH. BED ALARM FOR SAFETY.
--- NOTE | 2021-09-22 23:56 | NUR ---
CALL LIGHT ANSWERED. IV PUMP ALARMING. ISSUE RESOLVED. URINAL EMPTIED OF 300 ML CLEAR YELLOW URINE. PT REPORTS HE IS COMFORTABLE. DENIES FURTHER NEEDS.
--- NOTE | 2021-09-23 01:24 | NUR ---
BED ALARM SOUNDING. PT HAD USED THE URINAL AND "MISSED THE HOLE." ASSISTED TO RECLINER FOR LINEN CHANGE WITH FWW AND 2PA. PT GAIT WEAK AND UNSTEADY DUE TO RIGHT LEG PAIN. PT ABLE TO DO OWN VAHE CARE. CLEAN BRIEF PROVIDED. LINENS CHANGED. BACK TO BED, PENG FAIR. VS AND I&O COMPLETE. IVF INFUSING WNL. PT AGREES HE IS COMFORTABLE. NO FURTHER NEEDS. BED ALARM IN PLACE.
--- NOTE | 2021-09-23 02:23 | NUR ---
ASSISTED PATIENT IN USING URINAL. PATIENT VOIDED 300ML. NO OTHER CARE NEEDS AT THIS TIME. CALL LIGHT WITHIN REACH.
--- NOTE | 2021-09-23 03:17 | NUR ---
CALL LIGHT ANSWERED. IN TO ASSIST PT TO USE URINAL TO VOID 500 ML CLEAR YELLOW URINE. NO FURTHER NEEDS. BED ALARM ON. CALL LIGHT IN REACH.
--- NOTE | 2021-09-23 06:08 | NUR ---
CRITICAL LAB VALUE TAKEN AND RECORDED. AND REPORTED TO PRIMARY RN.
--- NOTE | 2021-09-23 06:18 | NUR ---
SCHEDULED MEDS ADMIN PER EMAR. PRN FOR PAIN ADMIN FOR LEG CRAMPS AND RLE PAIN. ASSISTED PT TO USE URINAL. 2PA TO REPOSITION IN BED. FRESH WATER PROVIDED. NO FURTHER NEEDS. CALL LIGHT IN REACH. BED ALARM FOR SAFETY.
--- NOTE | 2021-09-23 08:08 | NUR ---
weston got up in to chair for meal, blanket from warmer, am cares. call light within reach. no further tasks at this time
--- NOTE | 2021-09-23 09:27 | NUR ---
JE IS BACK IN BED. I&O AND VITALS CHARTED. CALL LIGHT WITHIN REACH, NO FURTHER TASKS AT THIS TIME
--- NOTE | 2021-09-23 09:55 | NUR ---
Patient sitting up in chair, no distress. Patient noted to be very hard of hearing. Patient denies pain and or shortness of breath. Oxygen reduced to 0.5 per nc from 1L. Patient reports he has not been sleeping well here and at home for a while now due to urinary frequency. IV remains patent, fluids infusing per provider order. Patient denies needs. Personal supplies and call light within reach. Told patient to call if he has needs. Personal supplies and call light within reach.
--- NOTE | 2021-09-23 10:30 | NUR ---
Spoke with Tiffany. He states he cont. to live at [facility]. His son does his fiances. He feels he has been declining and has difficulty walking. He has a bakers cyst behind his knee and he states it is very painful to walk. Pt stating he also has frequent incontinence and cannot make it to the bathroom. He is also having difficulty taking his Medications as he overtakes or skips doses. Pt wants to remain at [facility]. 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 He states his son and he have been discussing assisted living for the last 6 months and he is now willing to consider. Let him know, I will contact Tayler Shaw at [facility] and see if she has time to talk to him today to start the medica d process. Pt has a walker and a shower chair. He does still drive. He asks I call his son, Malcolm and update.
--- NOTE | 2021-09-23 12:59 | NUR ---
PT AMBLUATED TO BATHROOM. VS AND I&O CHARTED. CALL LIGHT WITHIN REACH NO FURTHER TASKS AT THIS TIME
--- NOTE | 2021-09-23 13:20 | NUR ---
Patient taking a nap, easily wakes to verbal stimuli. Legs elevated, no distress. No needs at this time. Tele removed per provider order. Call light within reach.
--- NOTE | 2021-09-23 13:47 | NUR ---
PT ASLEEP, DID NOT DISTURB. WILL CHECK BACK
--- NOTE | 2021-09-23 14:55 | NUR ---
Called and spoke with Malcolm. He states he had his dad placed in an [facility] in [place] [facility]. Pt backed out at the last minute. He would very much like for his dad to have a cg in his apartment, but would prefer and assisted living. Let him know I attempted to contact Tayler Shaw and left a message. I will assist Tiffany to start the process for medicaid [facility], I also let him know this a 45 day process.
--- NOTE | 2021-09-23 17:34 | NUR ---
Urinal emptied at this time. Patient sitting up eating dinner, no distress. IV patent, fluids infusing per provider order. Patient denies any distress or needs. Personal supplies and call light withiin reach.
--- NOTE | 2021-09-23 17:43 | NUR ---
Patient placed on room air, sp02 dropped to 88%. Placed pt back on 1L oxygen per nc. Patient denies sob.
--- NOTE | 2021-09-23 18:27 | NUR ---
LR BOLUS STARTED AT 500ML/HOUR. ORDER READS FOR A TOTAL OF 1500ML BOLUS.
--- NOTE | 2021-09-23 19:33 | NUR ---
RECEIVED REPORT FROM DAY SHIFT RN. RT IN ROOM TO ADMIN NEB. NO NEEDS NOTED. CALL LIGHT IN REACH.
--- NOTE | 2021-09-23 20:25 | NUR ---
IN TO PROVIDE PT WITH WATER, NO ICE, PT C/O DRY MOUTH, PROVIDED PT LEMON ORAL SWABS AND CHAPSTICK
--- NOTE | 2021-09-23 20:41 | NUR ---
PATIENT ASSESMENT COMPLETED. PATIENTS IV INFUSING PER ORDER. PATIENT RATES PAIN AT A 7/10 IN RLE, PRN TYELNOL GIVEN PER ORDER. PRN SLEEP AID GIVEN PER REQUEST. PATIENT IS ON 1L VIA [place]. VITALS TAKEN AND RECORDED. INTAKE AND OUYTPUT RECORDED. NO FURTHER NEEDS NOTED. CALL LIGHT IN REACH.
--- NOTE | 2021-09-23 21:40 | NUR ---
DENTURES PLACED IN CUP WITH EFFERDENT AND WATER. HEARING AID ON SIDE TABLE. ASSESSMENT COMPLETED.
--- NOTE | 2021-09-24 03:44 | NUR ---
HAS BEEN SLEEPING WELL. UP TO THE BR WITH O2 TUBING REACHING BR. ALL NEEDS MET.
--- NOTE | 2021-09-24 06:43 | NUR ---
UNEVENTFUL NIGHT. PT APPEARS TO HAVE SLEPT WELL.
--- NOTE | 2021-09-24 07:44 | NUR ---
Patient resting in bed, eyes closed, respirations even and non labored. Patient has no notable distress. Patient is on 1L oxygen per nc. Personal supplies and call light within reach.
--- NOTE | 2021-09-24 08:24 | NUR ---
Tylenol 650mg po amdin for right leg pain.
--- NOTE | 2021-09-24 10:20 | NUR ---
Per report, pt has gout. [facility] working with pt and son for medicaid to pay for placement.
--- NOTE | 2021-09-24 10:39 | NUR ---
Patient up to chair this morning, RLE elevated on pillows. Patient on room air, respirations even and non labored. Patient reports RLE is chronically painful, tylenol in use. Patient denies sob and or chest pain. Patient voiding frequently in urinal. No needs at this time. Personal supplies and call light within reach.
--- NOTE | 2021-09-24 16:13 | NUR ---
Patient in bed resting, no acute distress. Patient reports ongoing right leg pain. RLE elevated on pillows, ice in use as well. Patient provided with tylenol 650mg po at this time. Fresh water provided. No further needs at this time.
--- NOTE | 2021-09-24 18:44 | NUR ---
THIS MORNING HELPED PATIENT UP TO THE CHAIR STUDENT HELPED HOLD HIS OXYGEN TUBE.
--- NOTE | 2021-09-24 21:00 | NUR ---
in to get vitals, pt provided with half a sandwich, ok'd by rn, rt stopped by for a neb, no further needs at this time
--- NOTE | 2021-09-24 22:10 | NUR ---
pt called and said he had a wet pillow case, ice pack had started leaking from under his knee, wet linens removed for pt, water refilled at this time, no further needs by pt
--- NOTE | 2021-09-24 22:40 | NUR ---
REMAINS AWAKE AND WATCHING TV. ASSISTED PT WITH GETTING THE LIGHTING TO HIS LIKING. DENIES ANY OTHER NEEDS.
--- NOTE | 2021-09-24 23:22 | NUR ---
CALL LIGHT ON. pt REQUESTED TO MOVE TO CHAIR. pt IMPULSIVE, REQUIRED SEVERAL VERBAL CUES TO SAFELY TRANSFER. pt THEN REPORTED HE WAS WET. pt ENCOURAGED TO CALL FOR ASSISTANCE WHEN URINATING. pt GRIMACED AND MOANED WITH WEIGHT ON RIGHT LEFT. FWW 1PA TO CHAIR. PERICARE DONE. LEGS ELEVATED. LINENS CHANGED. CALL LIGHT WITHIN REACH. LIGHTS OFF FOR COMFORT. CALL LIGHT WITHIN REACH.
--- NOTE | 2021-09-25 03:14 | NUR ---
APPEARS ASLEEP. RESPRIATIONS EVEN AND UNLABORED.
--- NOTE | 2021-09-25 05:00 | NUR ---
awake and watching TV. Fresh water given. Denies any unmet needs.
--- NOTE | 2021-09-25 07:30 | NUR ---
Patient resting in bed, eyes closed, respirations even and non labored. Patient remains on room air. No notable distress. Personal supplies and call light within reach.
--- NOTE | 2021-09-25 08:54 | NUR ---
Tylenol 650mg po admin for RLE pain. Patient up in chair watching tv, no acute distress. RLE elevated on pillow. Patient reports his right leg feels better today. Notable edema 3+ to right leg, warm to touch, pedal pulse present. Patient denies needs. Personal supplies and call light within reach.
--- NOTE | 2021-09-25 10:53 | NUR ---
ADMINISTERED SENOKOT ORDERED FOR BM, ENCOURAGED MOBILITY AND FLUID INTAKE. PATIENT TOLERATES FLUIDS WELL BY STATING NO NAUSEA OR VOMITING, REQUESTING REFILLS SEE I/O FOR FLUID INTAKE AND SWALLOWING WITHOUT COUGHING OR NEEDING TO CLEAR VOICE AFTER CLEAR LIQUIDS. PATIENT IS EATING 75% OF MEALS ASSESSED PATIENT FOR PAIN AFTER PT HE STATES PAIN IS A 6/10 WHICH IS TOLERABLE AND DENIED NEED FOR ADDITIONAL PAIN MEDICATION. NON PHARMACOLOGICAL THERAPIES ICE. SN1 MARCIO
--- NOTE | 2021-09-25 11:27 | NUR ---
PT SITTING IN CHAIR WITH LEGS UP AND ICE PACK ON L KNEE. PT ADMITTED HE WAS IN QUITE A BIT OF PAIN. INFORMED IDALIA BLANCO, SHE WILL FOLLOW UP. GAVE PT EN- COURAGEMENT. WILL FOLLOW
--- NOTE | 2021-09-25 15:11 | NUR ---
Patient resting in bed, no distress, eyes closed. Patient's RLE elevated at this time. Personal supplies and call light within reach.
--- NOTE | 2021-09-25 16:19 | NUR ---
Tylenol 650mg po admin for reports of 6/10 Right leg pain.
--- NOTE | 2021-09-25 19:52 | NUR ---
ALERT AND WATCHING TV.
--- NOTE | 2021-09-25 23:00 | NUR ---
REMAINS AWAKE AND WATCHING TV. DENIES ANY NEEDS
--- NOTE | 2021-09-26 03:59 | NUR ---
APPEARS ASLEEP. RESPIRATIONS EVEN AND UNLABORED
--- NOTE | 2021-09-26 04:50 | NUR ---
PT CALLED, INCONT OF URINE IN BED, PT UP TO THE CHAIR, BED LINEN CHANGED, BACK TO BED
--- NOTE | 2021-09-26 05:00 | NUR ---
VS TAKEN, PT ASSISTED UP TO THE TOILET FOR A BM, WILL CALL
--- NOTE | 2021-09-26 05:22 | NUR ---
UP TO THE BR. HAD A BM. DOES NOT WANT RLE ELVATED AT THIS TIME. IS GOING TO TRY TO GET BACK TO SLEEP.
--- NOTE | 2021-09-26 05:51 | NUR ---
PT HAS HAD AN UNEVENTFUL NIGHT. SLEPT WELL THOUGH THE NIGHT.
--- NOTE | 2021-09-26 07:26 | NUR ---
Patient resting on left lateral side, eyes closed, respirations even and non labored. IV intact and patent, fluids infusing per provider order. Bed alarm intact. Close to RN station.
--- NOTE | 2021-09-26 09:06 | NUR ---
Tylenol 650mg po admin for reports of 6/10 right knee pain.
--- NOTE | 2021-09-26 10:51 | NUR ---
Patient assisted to chair at this time, standby assist with FWW. RLE elevated on pillows, ice in use for comfort. Patient has no needs at this time.
[2021-09-26] MEDS ORDERED: PREDNISONE10 MG PO (12:56)
--- NOTE | 2021-09-26 15:05 | NUR ---
Touched base with sonRoya via phone regarding plan for discharge. Per son, he is bear hunting and will try to find patient a ride home. Attempted to call son back twice, strait to voicemail both times. Patient requesting to not wait on his son. Patient able to dress himself. Offered to send hospital walker with taxi cab however patient declined. Patient able to walk independently to taxi cab.
== END 2021-09-26 15:00 | disposition home or self-care (01) | DRG 813 ==
LOC: ED 17:52 → MS 22:05
PROVIDERS: ADMIT Internal Medicine; ATTEND Internal Medicine
DX: D68.9 Coagulation defect, unspecified (principal); N17.9 Acute kidney failure, unspecified; E87.1 Hypo-osmolality and hyponatremia; M10.061 Idiopathic gout, right knee; E83.42 Hypomagnesemia; J43.9 Emphysema, unspecified; I48.0 Paroxysmal atrial fibrillation; E03.9 Hypothyroidism, unspecified; N40.0 Benign prostatic hyperplasia without lower urinary tract symptoms; Z20.822 Contact with and (suspected) exposure to COVID-19; T50.2X5A Adverse effect of carbonic-anhydrase inhibitors, benzothiadiazides and other diuretics, initial encounter; N18.32 Chronic kidney disease, stage 3b; W18.30XA Fall on same level, unspecified, initial encounter; G89.29 Other chronic pain; Z86.74 Personal history of sudden cardiac arrest; Z91.041 Radiographic dye allergy status; E78.5 Hyperlipidemia, unspecified; K59.00 Constipation, unspecified; M48.00 Spinal stenosis, site unspecified; Z79.899 Other long term (current) drug therapy; I11.0 Hypertensive heart disease with heart failure; I50.9 Heart failure, unspecified; Z90.49 Acquired absence of other specified parts of digestive tract; Z95.5 Presence of coronary angioplasty implant and graft; Z98.890 Other specified postprocedural states; Z79.01 Long term (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
CPT/HCPCS: 36415; 70450; 71045; 80048; 80053; 81001; 83605; 83735; 83880; 84484; 84550; 85025; 85060; 85610; 87502; 93005; 93010; 93971; 94640; 94760; 96374; 97110; 97116; 97161; 97166; 99285-25; A9270; J1940; J2920; J7030; J7121; J7512; U0003

== ENCOUNTER 2021-10-15 12:25 | Inpatient (IN) | payer MEDICARE, OTHER ==
[~2021-10-15] VITALS: Ht 172.7 cm; Wt 108.1 kg
[~2021-10-15 12:25] MED LIST changes: +PREDNISONE10 MG PO
--- OUTSIDE RECORDS SUMMARY | 2021-10-15 12:26 | XMS ---
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 Care History Medical/Surgical 11/10/2020 [facility] - CHW CONTACTED PATIENT-DISCUSSED IMPORTANCE OF FOLLOWING UP WITH PCP. PATIENT STATED HE WOULD CALL PCP OFFICE TO SCHEDULE AN APT. - PATIENT CALLED CHW BACK AND STATED NEXT FOLLOW UP APT WITH PCP DR BAGLEY IS ON 11/12/20. E.D. VISIT COUNT (12 MO.) [address] [facility] TOTAL 10 NOTE: Visits indicate total known visits. 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 - Hyperlipidemia, unspecified - Chronic obstructive pulmonary disease, unspecified - Other group home (current) drug therapy - Gout, unspecified 08/28/2021 09:06 [facility] TYPE: Emergency COMPLAINT: - CONSTIPATION DIAGNOSES: - Allergy status to other drugs, medicaments and biological substances - Essential (primary) hypertension - Unspecified atrial fibrillation - Constipation, unspecified - Chronic obstructive pulmonary disease, unspecified - Gout, unspecified - termite treater (current) use of systemic steroids - Unspecified abdominal pain - Abnormal level of blood mineral - Other group home (current) drug therapy - nursing home (current) use of inhaled steroids - nursing home (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 08/07/2021 08:46 [facility] TYPE: Emergency COMPLAINT: - CONSTIPATION DIAGNOSES: - termite treater (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 - Radiographic dye allergy status - Gout, unspecified - Essential (primary) hypertension - Other group home (current) drug therapy - Chronic obstructive pulmonary disease, unspecified - Hyperlipidemia, unspecified - Constipation, unspecified - termite treater (current) use of systemic steroids - Unspecified atrial fibrillation 2021 15:50 [facility] TYPE: Emergency COMPLAINT: - SOB DIAGNOSES: - Heart failure, unspecified - nursing home (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 - Gout, unspecified - Unspecified atrial fibrillation - Hypertensive heart disease with heart failure - Hyperlipidemia, unspecified - Chronic obstructive pulmonary disease, unspecified - Radiographic dye allergy status - Allergy status to other drugs, medicaments and biological substances - Shortness of breath - Other group home (current) drug therapy - Chronic obstructive pulmonary disease with (acute) exacerbation 04/15/2021 13:20 [facility] TYPE: Emergency COMPLAINT: - SOB DIAGNOSES: - Other emt intermediate (current) drug therapy - Gout, unspecified - Chronic obstructive pulmonary disease, unspecified - Unspecified atrial fibrillation - Shortness of breath - Allergy status to other drugs, medicaments and biological substances - Hyperlipidemia, unspecified - Contact with and (suspected) exposure to COVID-19 - Hypertensive heart disease with heart failure - Left ventricular failure, unspecified - termite treater (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 01/06/2021 19:18 [facility] TYPE: Emergency COMPLAINT: - RT LEG PAIN/NO INJURY DIAGNOSES: - Allergy status to other drugs, medicaments and biological substances - Unspecified atrial fibrillation - Gout, unspecified - Other emt intermediate (current) drug therapy - Pain in right leg - Hyperlipidemia, unspecified - Chronic obstructive pulmonary disease, unspecified - Localized edema - nursing home (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 - Essential (primary) hypertension 11/04/2020 11:49 [facility] TYPE: Emergency COMPLAINT: - CONSTIPATED DIAGNOSES: - Chronic obstructive pulmonary disease, unspecified - Unspecified atrial fibrillation - termite treater (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 - Gout, unspecified - Other group home (current) drug therapy - Hyperlipidemia, unspecified - Diarrhea, unspecified - Allergy status to other drugs, medicaments and biological substances - Hypokalemia - Constipation, unspecified - Essential (primary) hypertension 10/19/2020 09:55 [facility] TYPE: Emergency COMPLAINT: - RT FOOT SWELLING DIAGNOSES: - Other emt intermediate (current) drug therapy - termite treater (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 - Unspecified sprain of right foot, initial encounter - Unspecified atrial fibrillation - Allergy status to other drugs, medicaments and biological substances - Chronic obstructive pulmonary disease, unspecified - Essential (primary) hypertension - Gout, unspecified - Exposure to other specified factors, initial encounter - Hyperlipidemia, unspecified INPATIENT VISIT TRACKING (12 MO.) 09/22/2021 22:05 [facility] TYPE: Medical Surgical COMPLAINT: - ACUTE KIDNEY INJURY,HYPONATREMIA,COAGULOPATHY DIAGNOSES: - Acquired absence of other specified parts of digestive tract - Acute kidney failure, unspecified - Other chronic pain - Presence of coronary angioplasty implant and graft - Constipation, unspecified - Hypothyroidism, unspecified - Paroxysmal atrial fibrillation - Emphysema, unspecified - Chronic kidney disease, stage 3b - Benign prostatic hyperplasia without lower urinary tract symptoms - Radiographic dye allergy status - nursing home (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 - Contact with and (suspected) exposure to COVID-19 - Idiopathic gout, right knee - Other emt intermediate (current) drug therapy - Coagulation defect, unspecified - Hyperlipidemia, unspecified - Adverse effect of carbonic-anhydrase inhibitors, benzothiadiazides and other diuretics, initial encounter - Hypo-osmolality and hyponatremia - Hypomagnesemia - Hypertensive heart disease with heart failure - Fall on same level, unspecified, initial encounter - Personal history of sudden cardiac arrest - Other specified postprocedural states - Spinal stenosis, site unspecified - Heart failure, unspecified [email or web address]
[2021-10-15] MEDS ORDERED: FUROSEMIDE80 MG PO (12:42)
[2021-10-15] MEDS ORDERED: WARFARIN SODIUM1 MG PO (12:43)
--- NOTE | 2021-10-15 16:16 | NUR ---
Called and spoke with Tayler Shaw from [facility]. 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 Pt denied needing assistance so they did not follow through with his case. Updated I had recieved a call from the nurse seeing him, she was stating concerns and I had asked her to call and speak with Tayler. States she did not receive a call. Called [facility] and spoke with Sulema, updated pt has admitted to the hospital. She states they have all had concerns about his safety in the home. She will speak with his nurse and I will call them tomorrow.
--- NOTE | 2021-10-15 18:23 | NUR ---
PT RESTING QUIETLY IN BED, AWAKENS EASILY. DENIES NEEDS AT THIS TIME. CALL LIGHT WITHIN REACH.
--- NOTE | 2021-10-15 19:05 | NUR ---
SHIFT REPORT RECEIVED FROM DAYSHIRHONDA GOFF, pt REPORTING CRAMPS, PRN PAIN MEDICAITON GIVEN BY DAYSAMINTA RN, SEE EMAR. BED ALARM ON AND CALL LIGHT IN REACH.
--- NOTE | 2021-10-15 20:15 | NUR ---
BED ALARM GET OFF, PT JUST TRYING TO REPOSITION SELF AND SIT UPRIGHT, NO FURTHER NEEDS, BED ALARM RESUMED
--- NOTE | 2021-10-15 20:20 | NUR ---
IN TO GET VITALS, I&Os, CRYO ICE FILLED, FRESH WATER GIVEN, NO FURTHER NEEDS AT THIS TIME
--- NOTE | 2021-10-15 20:29 | NUR ---
ROUNDED ON pt, pt AWAKE AND RESTING ON EDGE OF BED. BED ALARM REMAINS ON FOR SAFETY AND CALL LIGHT IN REACH. IV SITE WNL, BRISK BLOOD RETURN NOTED. IV SITE SALINE LOCKED.
--- NOTE | 2021-10-15 21:20 | NUR ---
ASSESSMENT COMPLETE, SCHEDULED MEDS GIVEN (SEE EMAR). pt AWAKE AND RESTING IN BED, ONEIDA BUT FULLY ORIENTED. RT TAMI IN ROOM TO GIVE SCHEDULED BREATHING TREATMENT. pt REPORTS CHRONIC 7/10 PAIN, DENIES NEED FOR ADDITIONAL PAIN MEDICATION AT THIS TIME- MEDICATED AT SHIFT CHANGE. BED ALARM ON, PHOTO CONSENT OBTAINED FOR APPROX 1-1.5CM DIAMETER SORE NOTED TO LEFT OUTER BUTTOCKS. PHOTO COLLECTED AND IN CHART. ALLEVYN DATED AND IN PLACE. pt ABLE TO TURN SELF IN BED, BLE CURRENTLY ELEVATED W/ PILLOW. DOPPLER USED TO OBTAIN PEDAL PULSES, +3 EDEMA TO RLE, +2 TO +3 EDEMA TO LLE, RLE WEAKER COMPARED TO LLE. SKIN COOL TO THE TOUCH, CAP REFILL APPROX 3 SECONDS. SENSATION INTACT PER pt. WILL MONITOR. BLE COVERED W/ BLANKETS. REDDNESS TO RLE REMAINS WITHIN OUTLINE FROM SHIFT CHANGE. NO FURTHER NEEDS, CALL LIGHT IN REACH.
--- NOTE | 2021-10-15 22:30 | NUR ---
pt RESTING IN BED WITH EYES CLOSED ON RA. RR EVEN AND UNLABORED. NO DISTRESS NOTED. WILL MONITOR FOR CHANGES. BED ALARM REMAINS ON FOR SAFETY.
--- NOTE | 2021-10-15 23:20 | NUR ---
PT PROVIDED WITH PILLOW UNDER LEFT HIP, NO FURTHER NEEDS
--- NOTE | 2021-10-15 23:59 | NUR ---
pt AWAKE AND RESTING IN BED, ASSISTED WITH PUTTING DENTURES IN CUP W/ CLEANSER. NO FURTHER NEEDS, CALL LIGHT IN REACH AND BED ALARM REMAINS ON FOR SAFETY.
--- NOTE | 2021-10-16 00:45 | NUR ---
PT CALLED OUT, IN TO CHECK ON PT, PT STATES SOB, CHECKED SPO2 ABD SAT PT UP IN BED WHILE CALLED FOR AN RN IN TO ASSIST WITH PT, FRESH WATER PROVIDED, RT IN RM TO CHECK PT, PT STOOD AT BEDSIDE TO HELP WITH LEG PAINS, NEW GOWN IN PLACE, BACK TO BED AGAIN, RN IN RM WITH RT
--- NOTE | 2021-10-16 01:05 | NUR ---
INFORMED BY IDALIA GALARZA, pt IS RESTLESS AND REPORTS SOB. RT TAMI IN ROOM FOR PRN BREATHING TREATMENT, pt UP 2PA WITH FWW TO STAND D/T REPORT OF "CRAMPS". pt BACK IN BED, BED ALARM RESUMED AND BLE ELEVATED WITH PILLOWS. FAINT EXP WHEEZES NOTED WITH AUSCULTATION, pt REPORTS SOB "BETTER" POST BREATHING TREATMENT. ANDRÉS GONZALES IN ROOM TO COLLECT VS AND I&O'S. CALL LIGHT IN REACH.
--- NOTE | 2021-10-16 01:37 | NUR ---
SCHEDULED IV ABX INFUSING DIRECTED, IV SITE WNL WITH BRISK BLOOD RETURN NOTED. BED ALRM ON, pt BACK IN BED AFTER SITTING ON EDGE OF BED. BLE ELEVATED WITH PILLOWS, BILATERAL PEDAL PULSES OBTAINED VIA DOPPLER. CALL LIGHT IN REACH AND BED ALARM REMAINS ON FOR SAFETY.
--- NOTE | 2021-10-16 02:06 | NUR ---
PT REPORTED TO RN DOMINIC THAT HE HAD HEARTBURN WHEN ANSWERING HIS CALL LIGHT. CHARGE NURSE DAVE ENTERED NIO FOR MAALOX. THIS WAS GIVEN TO PT.
--- NOTE | 2021-10-16 03:04 | NUR ---
CALL LIGHT ANSWERED, pt REQUESTING TO SIT ON EDGE OF BED D/T CHRONIC CRAMPING TO LEFT LEG. SAP DIRECTOR JANET IN ROOM TO ASSIST, NO FURTHER NEEDS. BED ALRM ON AND CALL LIGHT IN REACH.
--- NOTE | 2021-10-16 03:16 | NUR ---
ROUNDED ON pt, pt WISHES TO STAY SITTING ON EDGE OF BED, BED ALARM REMAINS ON AND CALL LIGHT IN REACH. WILL MONITOR. URINAL EMPTIED.
--- NOTE | 2021-10-16 03:25 | NUR ---
MESSAGE SENT TO DR COTTER REGARDING pt's REPORTED MUSCLE SPASMS, BILL ADJUSTER AWARE AND UPDATED.
--- NOTE | 2021-10-16 03:29 | NUR ---
CALL LIGHT ANSWERED, pt ASSISTED BACK TO BED, BLE ELEVATED IN BED WITH PILLOWS. BED ALARM RESUMED, CALL LIGHT IN REACH.
--- NOTE | 2021-10-16 04:22 | NUR ---
pt AWAKE AND RESTING IN BED, WAVED AT USER INTERFACE DEVELOPER. NO NEEDS OR CONCERNS VERBALIZED. CALL LIGHT IN REACH AND BED ALARM REMAINS ON FOR SAFETY.
--- NOTE | 2021-10-16 06:09 | NUR ---
SCHEDULED THYROID MEDICATION AND PRN PAIN MEDICATION GIVEN FOR 9/10 PAIN IN RIGHT KNEE/LEG, SEE EMAR. NO FURTHER NEEDS, CALL LIGHT IN REACH. BED ALARM REMAINS ON FOR SAFETY. WILL MONITOR.
--- NOTE | 2021-10-16 09:10 | NUR ---
MORNING ASSESSMENT COMPLETE. PT UP IN RECLINER FOR BREAKFAT WITH RIGHT LEG ELEVATED ON PILLOWS. C/O CONSTANT CHRONIC PAIN TO RIGHT LEG, INFORMED PT WILL BRING PAIN MEDS WHEN DUE, PT VERBALIZED UNDERSTANDING. DENIES FURTHER NEEDS AT THIS TIME. CALL LIGHT WITHIN REACH.
--- NOTE | 2021-10-16 09:29 | NUR ---
PT IS SITTING UP IN CHAIR WATCHING TV. I&O AND VS CHARTED CALL LIGHT WITHIN REACH NO FURTHER TASKS AT THIS TIME
--- NOTE | 2021-10-16 11:19 | NUR ---
PT C/O 12/30 RIGHT LEG AND FOOT PAIN, PRN PAIN MEDICATIONS GIVEN. RIGHT LEG ELEVATED ON PILLOWS. INFORMED AND EDUCATED ON FLUID RESTRICTION, PT VERBALIZED UNDERSTANDING. DENIES FURTHER NEEDS AT THIS TIME. REORIENTED TO CALL LIGHT, WITHIN REACH.
[2021-10-16] MEDS ORDERED: FUROSEMIDE80 MG PO (11:23)
[2021-10-16] MEDS ORDERED: CALCIUM 600-VI1 EAC9 PO (11:29)
[2021-10-16] MEDS ORDERED: SPIRONOLACTONE25 MG PO (11:31)
[2021-10-16] MEDS ORDERED: POTASSIUM CHLO20 ME1 PO (11:31)
--- NOTE | 2021-10-16 11:39 | NUR ---
PT SITTING IN CHAIR WITH LEGS ELEVATED. PT SOMEWHAT DISCOURAGED, GAVE COMFORT AND ENCOURAGEMENT. IV ALARM SOUNDING-RN DENVER IN TO CARE. WILL FOLLOW NEEDEED
--- NOTE | 2021-10-16 12:19 | NUR ---
PT LEGS WRAPPED WITH ONEIL WRAP PER DR COTTER. ELEVATED ON PILLOWS IN RECLINER. LUNCH AT BEDSIDE. DENIES FURTHER NEEDS AT THIS TIME. CALL LIGHT WITHIN REACH.
--- NOTE | 2021-10-16 13:13 | NUR ---
PT IS SITTING UP IN CHAIR WATCHING TV. I&O AND VS CHARTED CALL LIGHT WITHIN REACH NO FURTHER TASKS AT THIS TIME
--- NOTE | 2021-10-16 13:44 | EKG ---
[facility] [address] [place] [address] Signed Atrial fibrillation Nonspecific T wave abnormality Abnormal ECG When compared with ECG of 22-SEP-2021 18:10, No significant change was found Confirmed by SAWYER COTTER MD ([id number]) on 10/16/2021 1:44:00 PM Electronically Signed By: SAWYER COTTER MD 10/16/21 1344 PATIENT NAME: KORIN DESHPANDE AUBRIE Electrocardiogram DATE OF : 38 PHYSICIAN: SAWYER COTTER MD REPORT #: [id number] REPORT IS CONFIDENTIAL AND NOT TO BE RELEASED WITHOUT AUTHORIZATION
--- NOTE | 2021-10-16 15:49 | NUR ---
Lengthy discussion with pt and he states he has not been doing well at home. He is unable to put his socks on or his pants. He is unable to put his christina hose on. We discussed why he told [facility] he did not need help. He states it is hard for him to accept help and his son was the one he answered the questions. I called Tayler Shaw at [facility] and the son had answered the questions and per his answers pt did not qualify. Received a call from serafin Capone nurse. She has spoken with the son and he would like pt placed. Per Estelita, pt has not been taking his coumadin or then over taking. INR are all over the place. She spoke with Tayler Shaw last week about her concerns. She also states son was talking to a SNF or [facility] and pt was accepted and wrote orders. I have not been able to reach Malcolm by phone and his voice mail if full. Pt did agree to chart being sent to [facility] to check for a bed. He does say he may change his mind and not go. Per SABRINA at [facility], they will have a bed open on
--- NOTE | 2021-10-16 22:30 | NUR ---
IN TO GET VITALS
--- NOTE | 2021-10-16 22:38 | NUR ---
coronet/acapella at bedside, pt on room air, no sob noted with exertion. lungs coarse with exp wheezing, denies cough at this time. RINCON, using R hearing aid. abd large firm, vicky, generalized hands edema. LE edema, covered with saskia wrap in place bilat, L leg 2+, faint pedal pulses. R leg cellulitis 3+ edema, tender to touch. In chair at this time, legs elevated. ambulated in room 1PA/FWW, pulse 114 after walking in room. Allevyn to lower L buttocks area.Pt reinstructed on fluid restriction, to elevated legs to decrease edema stated understanding. Pleasant and cooperative, uses call light.Denies c/o pain
--- NOTE | 2021-10-16 23:12 | NUR ---
walked to br w/o assist, uses FWW, back to chair, legs elevated. on room air, tolerated well
--- NOTE | 2021-10-17 01:50 | NUR ---
UP IN CHAIR, ON ROOM AIR, LEGS ELEVATED, NO CHANGES EDEMA/REDNESS. NO DISTRESS LUNGS W/O CHANGES. COOP WITH FLUID RESTRICTION. NO C/O ADVERSE REACTION TO IV ABX. VOIDING SMALL AMOUNT OF URINE
--- NOTE | 2021-10-17 05:35 | NUR ---
Pt on room air, slight sob with exertion noted at this time, transferred self from chair to bed. On room air, lungs with exp wheezing bilat. dry cough, tolerating fluid restrictin well. no emesis, sl patent, tolerated IV ABX, no c/o adverse reaction. LE wrapped in saskia wrap, edema R 3+ edema, redness aove markings noted on second assessment. legs have been elevated when in chair. ALUTIIQ uses hearing aid in R ear. pleasant and cooperative. Daily weight 107.6kg. voiding qs
--- NOTE | 2021-10-17 09:48 | NUR ---
MORNIG ASSESSMENT COMPLETE. RE-WRAPPED PT LEGS WITH ONEIL WRAPS. DOPPLER USED FOR PEDAL PULSE. PT ASSISTED WITH FWW FROM BED TO CHAIR FOR BREAKFAST. EDUCATED ON FLUID RESTRICTION, PT VERBALIZED UNDERSTANDING. DENIES FURTHER NEEDS AT THIS TIME. CALL LIGHT WITHIN REACH.
--- NOTE | 2021-10-17 12:10 | NUR ---
PT SITTING UP IN CHAIR EATING LUNCH. LEGS ELVEATED ON RECLINER AND PILLOWS. DENIES NEEDS AT THIS TIME. CALL LIGHT WITHIN REACH.
--- NOTE | 2021-10-17 13:11 | NUR ---
BATHROOM CALL LIGHT GOING OFF. THIS RN 1PSBA PATIENT FROM THE RESTROOM WITH HIS FWW AND BACK TO HIS BEDSIDE ARMCHAIR. PATIENT DENIED ANY OTHER CARE NEEDS AT THIS TIME. URINE RECORDED ON I+O SHEET. CALL LIGHT IS IN REACH.
--- NOTE | 2021-10-17 14:02 | NUR ---
PATIENT WALKING UNIT WITH PT.
--- NOTE | 2021-10-17 14:24 | NUR ---
PATIENT SITTING IN CHAIR WATCHING TV. VITALS AND I&O'S CHARTED. CALL LIGHT IN REACH. NO FURTHER NEEDS AT THIS TIME. LINENS CHANGED.
--- NOTE | 2021-10-17 16:25 | NUR ---
PT SITTING IN RECLINER, LEGS ELEVATED WITH PILLOWS. BED LINENS CHANGED PER REQUEST. PT DENIES NEEDS AT THIS TIME. CALL LIGHT WITHIN REACH.
--- NOTE | 2021-10-17 17:14 | NUR ---
PT EATING DINNER IN RECLINER, DENIES NEEDS AT THIS TIME. CALL LIGHT WITHIN REACH.
--- NOTE | 2021-10-17 17:49 | NUR ---
PATIENT UP TO BATHROOM THEN TO BED, 1PA FWW. PATIENT SAID HE FEELS CONSTIPATED, RN NOTIFED. VITALS AND I&O'S CHARTED. FRESH WATER GIVEN. CALL LIGHT IN REACH. NO FURTHER NEEDS AT THIS TIME.
--- NOTE | 2021-10-17 18:48 | NUR ---
ASSISTED PT FROM BATHROOM TO BED. PT HAD MEDIUM BM. RE-WRAPPED LEG WRAPS. PT DENIES FURTHER NEEDS AT THIS TIME. CALL LIGHT WITHN REACH.
--- NOTE | 2021-10-17 19:15 | NUR ---
assisted pt with toileting needs, bm passed and back to bed, pt asked if it was time for a pain med, will have rn check
--- NOTE | 2021-10-17 20:31 | NUR ---
PT ON ROOM AIR, GETS NEBS, AUDIBLE AND AUSCULTATED EXP WHEEZING AND TIGHTNESS, DRY NON PRODUCTIVE COUGH AT THIS TIME. SLIGTH SOB WITH EXERTION NOTED, TACHY AT 101, RESP BETTER AT 20. R FA SL PATENT. BRUISING AND SCABBING OVER ARMS IMPROVING, REDNESS OF R LEG IMPROVED, WARM TO TOUCH BELOW KNEE AREA, EDEMA MUCH IMPROVED BOTH LEGS. 2+ ONEIL DRESSING WRAP IN PLACE BILAT, LEGS ELEVATED, IN BED. TOLERATING FLUI RESTRICTION VERY WELL, HAD SOFT BM, INDEPENDENT FWW TO BSC. USES CALL KESHIA ROSAS, HEARING AID R EAR, ALERT AND ORIENTED
--- NOTE | 2021-10-17 22:27 | NUR ---
EYES CLOSED, HOB ELEVATED TO HIS COMFORT, NO DITRESS, BED ALARM ON , CALL LAIGHT AND FLUIFS AT HANDS REACH
--- NOTE | 2021-10-18 01:27 | NUR ---
UP TO BSC, HAD MORE LIQUID SOFT BM, VOIDED, BACK TO BED, R LEG ONEIL WRAP REWRAPPED, BILAT LEGS WITH ONEIL WRAP, DECREAED REDNESS AND WARMTH TO R LEG, DECREASED EDEMA BILAT. DENIES C/O PAIN BUT SOB NOTED WITH EXERTION, LUNGS W/O CHANGES, ON ROOM AIR MOIST NON PRODUCTIVE COUGH PRESENT.
--- NOTE | 2021-10-18 06:17 | NUR ---
Pt on room air, moist non productive cough present at times. sob with exertion noted. Lungs dim with wheezes t/o. SL patent, no c/o adverse reaction to abx.improved redness, warmth and edema to R leg. and L leg edema. both LE wrapped with saskia bandage. elevated when in bed or chair. Independent w fww in room. Up to bsc multiple times. tolerating well with minor sob with exertion noted. Has had multiple semiliquid bm's. pt received Lactulose in am shift. Allevyn to L sided fell off, declined to have it replaced asked several times. explication given. "Its just going to come off, wait til im not pooping so much and we can replaced. will notify incoming RN . Has been medicated with Tylenol 2x per c/o h/a and back pain, effective. tolerating liquid restriction well. took meds with sips of water. [place], forgetful, irritable mood at times but redirectable. cooperative. Daily standing weight was 107.1 KG. slow unsteady gait when up to BR. denies CP gets nebs
--- NOTE | 2021-10-18 06:56 | NUR ---
LE BILAT LEGS REWRAPPED WITH ONEIL BANDAGES, DECREAED EDEMA AND REDNESS BILAT AND R LEG. UP TO CHAIR, 1PSBA/FWW, LEGS ELEVATED. COOPERATIVE, NO FURTHER C/O PAIN.
--- NOTE | 2021-10-18 08:30 | NUR ---
Vanco trough drawn.
--- NOTE | 2021-10-18 09:27 | NUR ---
PATIENT SITTING UP IN CHAIR WATCHING TV. VITALS AND I&O'S CAHRTED. WARM WASHCLOTH GIVEN. PATIENT REQUESTED AN ELECTRIC RAZOR, ELECTRIC RAZOR GIVEN. ORAL CARE DONE. CALL LIGHT IN REACH. NO FURTHER NEEDS AT THIS TIME.
--- NOTE | 2021-10-18 10:45 | NUR ---
Dr Carrillo in to check on Pt. Pt has some audible expiratory wheeze. RT asked to provide Neb Tx. Pt was also encouraged to use IS and flutter valve. Pt was also not happy with our electric razor and expressed that to the doctor.
[2021-10-18] MEDS ORDERED: WARFARIN SODIU2.5 MG PO (11:13)
--- NOTE | 2021-10-18 11:53 | NUR ---
Pt is resting in a recliner, awaiting lunch tray. Vancomycin IV finished. Pt stated his R knee still felt little warm. Assesment confirmed that. Pt also said: "I'd figured doctor would be here today sometime". Pt was assured Dr Carrillo saw him about an hour ago. PT will be working with Pt this afternoon.
--- NOTE | 2021-10-18 13:43 | NUR ---
PATIENT SITTING IN CHAIR WATCHING TV. VITALS AND I&O'S CHARTED. CALL LIGHT IN REACH. NO FURTHER NEEDS AT THIS TIME.
--- NOTE | 2021-10-18 16:03 | NUR ---
Pt stated it was hard to breathe. On auscultation Pt had b/l crackles. pOx was 93-95% on RA. Dr Carrillo notified. Advised to monitor the Pt for now. Pt was repositioned in bed. [place] slightlyu better.
--- NOTE | 2021-10-18 16:11 | NUR ---
[facility] Advised to use [facility].
--- NOTE | 2021-10-18 17:49 | NUR ---
PATIENT SITTING IN CHAIR WATCHING TV. VITALS CHARTED. CALL LIGHT IN REACH. NO FURTHER NEEDS AT THIS TIME.
--- NOTE | 2021-10-18 19:10 | NUR ---
BEDSIDE REPORT, PT SITTING UP IN RECLINER HE REPORTS NO NEEDS AT THIS TIME.
--- NOTE | 2021-10-18 20:45 | NUR ---
SBA WITH FWW TO BED, DID PUT HIS RIGHT LEG INTO BED, PLACED ON PILLOW, SHEET COVERED PER CHOICE. REQUESTED A SANDWICH, DID NOT SEE ANY DOCUMENTATION OF DINNER INTAKE, NOR WAS IT WROTE ON THE WHITE BOARD. ORDERED A SANDWICH FOR PT. PRIMARY RN RAMIRO KIDD.
--- NOTE | 2021-10-18 21:36 | NUR ---
made a warm pack per primary rn. wrapped with pillow case and instructed patient to wrapped it more or take it off from his right knee when it gets very hot. patient understood. lunch box given.
--- NOTE | 2021-10-19 00:25 | NUR ---
PT HAS LEFT HEALING ABRASION ON LEFT GLUTEAL CHEEK, HE ASKED IF IT WAS OPEN AGAIN, IT IS NOT DRAINING OR OPEN IT IS SCABBED OVER ALLEVYN DRESSING PLACED FOR PROTECTION AFTER WASHING AREA WITH WOUND CLEANSER
--- NOTE | 2021-10-19 05:32 | NUR ---
PT HAS SLEPT WELL OVER SHIFT, HE HAS BEEN USING URINAL. HE REPORTED MAIN PAIN RIGHT KNEE AFTER AMBULATING TODAY, HE REPORTS THAT WARM PACK MADE IMPROVMENT. NO NEW CONCERNS OVER SHIFT
--- NOTE | 2021-10-19 06:42 | NUR ---
PATIENT IS UP IN THE CHAIR. CALL LIGHT AND SIDE TABLE WITHIN REACH.
--- NOTE | 2021-10-19 07:20 | NUR ---
Received report from Dolly FRIEDMAN. Pt resting in chair, awakens to this RN entering and states no pain or needs. On room air, saline locked. No needs identified at this time. Call light in reach.
--- NOTE | 2021-10-19 09:15 | NUR ---
Scheduled medications administered and assessment complete. Pt resting in chair, on room air, states no pain or needs. Clear lung sounds at this time. IV ABX ancef infused. ONEIL wraps removed, pt c/o itchy legs, elevated on pillows- redness receding from marked lines and edema also lessened per report. ONEIL wraps left off for doctor visualization. Linens changed, room tidied. VSS, I/Os complete.
--- NOTE | 2021-10-19 10:25 | NUR ---
IV VANCO INFUSING TO LEFT ARM FOR 90 MINUTES.
--- NOTE | 2021-10-19 11:30 | NUR ---
Rounded on patient who is sitting up in chair watching tv. No needs identified at this time, call light in reach.
--- NOTE | 2021-10-19 12:05 | NUR ---
Pt walking in hallway with physical therapy at this time.
--- NOTE | 2021-10-19 14:44 | NUR ---
Rounded on patient, assessment complete. Pt resting in chair with legs elevated. He states no needs at this time. Watching tv. Warm blanket provided and patient assisted to reposition with pillows. Occasional cough noted, nonproductive, on room air.
--- NOTE | 2021-10-19 15:41 | NUR ---
Pt ambulated in hallway from his room to end of hallway and back. Tolerates well on RA. C/O slight knee pain. Back to bed at this time. Oral swabs provided. No other needs. call light in reach
--- NOTE | 2021-10-19 16:43 | NUR ---
Scheduled medications administered. Legs wrapped with ONEIL wraps -compression, with legs elevated on 2 pillows in bed. Warm blanket provided. No further needs at this time
--- NOTE | 2021-10-19 17:46 | NUR ---
Vitals and I/Os complete. Pt up to chair at this time. VSS, A+O. Legs elevated with 2 pillows. Pt watching tv and states no needs.
--- NOTE | 2021-10-19 17:52 | NUR ---
Pt did well this shift- ambulated in hallway, on room air, occasional cough, receiving nebs. IV ABX for cellulitis- much improved. ONEIL wraps in place on bilat lower legs and elevated. Tolerating fluid restriction and 2g sodium diet. Restless leg in evening- scheduled meds given. Pt pleasant, cooperative with POC and calls appropriately
--- NOTE | 2021-10-19 19:20 | NUR ---
BEDSIDE REPORT FROM BISMARK FRIEDMAN, PT IS SITTING UP IN RECLINER HE IS ALERT AND ORIENT, HE REPORTS THAT HIS WRAPS ARE TOO TIGHT, RIGHT LEG WRAP HAS BEEN REMOVED, THIS RN WILL REWRAP WHEN ROUNDING THIS EVENING, PT AGREEABLE TO THIS PLAN. NO OTHER REQUESTS AT THIS TIME.
--- NOTE | 2021-10-19 20:20 | NUR ---
PT REPORTS ONEIL WRAPS TOO TIGHT, UNWRAPPED AND REWRAPPED LEGS AT THIS TIME. HE REPORTS THEY FEEL BETTER. WARM PACK PROVIDED TO RIGHT KNEE. HE HAS NO OTHER CONCERNS AT THIS TIME.
--- NOTE | 2021-10-19 23:21 | NUR ---
PT ASSISTED TO BED FROM RECLINER, TOLERATED ACTIVITY WELL WITH INCREASE IN PAIN AT RIGHT KNEE THIS IS CHRONIC, WARM PACK AND WARM BLANKET PROVIDED, URINAL EMPTIED. PT HAS NO OTHER REQUESTS AT THIS TIME, 200ML OF FREE WATER GIVEN AT THIS TIME.
--- NOTE | 2021-10-20 02:20 | NUR ---
PT RESTING IN EYES CLOSED SNORING NOTED, RR 19BPM, HE IS ALERT TO RN AT BEDSIDE FOR ABX ADMINSTRATION, PT REPORTS NO NEEDS AT THIS TIME. PT ENCOURAGED AND ASSISTED TO REPOSITION OF SET FROM FLAT ON BACK. PT REPORTS ON NEEDS AT THIS TIME
--- NOTE | 2021-10-20 04:48 | NUR ---
PT HAS SLEPT WELL OVER SHIFT, HE REPORTS WARM PACKS ARE HELPFUL WITH RIGHT KNEE PAIN CHRONIC, HE SAID HE WOULD LIKE SOME WARM PACK SUPPLIES TO TAKE HOME AT DISCHARGE. HE HAS REQUESTED TO HAVE HIS LEG WRAPS TAKEN OFF INTERMITTENLY DUE TO IRRITATION/TIGHTNESS. HIS ALLYVN DRESSING TO GLUTEAL CHEEK HAS ROLLED OFF, HIS SORE IS IN HEALING PHASE NO DRAINAGE OR REDNESS. HAVE REPLACEMENT SUPPLIES IN ROOM FOR AM. PT REMAINS ON ROOM AIR AND PLAN TO DISCHARGE TO [facility] ON TUESDAY. BOWEL REGIME ORDER PT HAS NOT HAD BM FOR THREE DAYS AND HAS HYPOACTIVE BT, PT STATES HE TAKES STOOL SOFTNERS AT HOME IF HE DOES NOT HAVE BM EVERYDAY. NO OTHER NEW CONCERNS OVER THIS SHIFT.
--- NOTE | 2021-10-20 06:43 | NUR ---
PT RESTING IN BED HE SAID HE WOULD LIKE SOME COFFEE, HE HAS 300ML OF FREE FLUID AVAILABLE FROM [employer], COFFEE PROVIDED. PT HAS NO OTHER REQUESTS AT THIS TIME. HE IS ALERT AND ORIENTED. NO DISTRESS NOTED. NO NEW CONCERNS. PT REPORTS HE DID SLEEP "PRETTY GOOD" LAST NIGHT. HE REPORTS WARM PACK IS HELPFUL WITH RIGHT KNEE PAIN
--- NOTE | 2021-10-20 07:35 | NUR ---
Report received from Dolly FRIEDMAN. Pt sitting up in chair, A+O. Legs elevated on pillows, ONEIL wrap to R leg at this time. Pt c/o tender legs r/t edema and cellulitis, states tolerable at this time. No needs, call light in reach. Will continue plan of care.
--- NOTE | 2021-10-20 09:18 | NUR ---
PT IS SITTING UP IN CHAIR WATCHING TV. PT REQUESTED TO TAKE A SHOWER LATER IN THE MORNING. I&O AND VS CHARTED CALL LIGHT WITHIN REACH NO FURTHER TASKS AT THIS TIME
--- NOTE | 2021-10-20 09:55 | NUR ---
Scheduled medications administered and assessment complete. Pt sitting up in chair and resting after breakfast. VSS, A+O. IV ABX infused WNL. IV site WNL. Pt on room air and tolerating well, intermittent cough. PT in room to work with patient. Call light in reach.
--- NOTE | 2021-10-20 10:50 | NUR ---
Rounded on patient who is resting in chair, OT in room working with patient at this time.
--- NOTE | 2021-10-20 11:44 | NUR ---
Pt saline locked. Sitting up in chair watching tv. He states no needs at this time.
--- NOTE | 2021-10-20 12:42 | NUR ---
PT SITTING IN CHAIR, ALERT AND ORIENTED. PT IS FEELING BETTER, LAUGHING AND JOKING. IV ALARM SOUNDING, IDALIA SOFIA IN TO CARE FOR PT. GAVE ENCOURAGEMENT, PT THANKED ME FOR VISITING. WILL FOLLOW
--- NOTE | 2021-10-20 13:30 | NUR ---
PO ABX administered and VSS, I/Os complete. Pt resting in chair watching tv with legs elevated.
[2021-10-20] MEDS ORDERED: CLINDAMYCIN HC300 MG PO (14:01)
--- NOTE | 2021-10-20 15:17 | NUR ---
Pt discharged with Son Malcolm to provide ride home. F/U appointment arrangments made, pt and son verbalizes understanding. RX sent to pharmacy. IV removed WNL. VSS, A+O. All belongings returned to patient.
== END 2021-10-20 15:00 | disposition home or self-care (01) | DRG 603 ==
LOC: ED 12:25 → MS 12:26
PROVIDERS: ADMIT Internal Medicine; ATTEND Internal Medicine
DX: L03.115 Cellulitis of right lower limb (principal); E87.1 Hypo-osmolality and hyponatremia; I48.21 Permanent atrial fibrillation; G25.81 Restless legs syndrome; Z20.822 Contact with and (suspected) exposure to COVID-19; J43.9 Emphysema, unspecified; N40.0 Benign prostatic hyperplasia without lower urinary tract symptoms; E79.0 Hyperuricemia without signs of inflammatory arthritis and tophaceous disease; E03.9 Hypothyroidism, unspecified; E87.6 Hypokalemia; I10 Essential (primary) hypertension; R79.1 Abnormal coagulation profile; M54.50 Low back pain, unspecified; G89.29 Other chronic pain; E78.5 Hyperlipidemia, unspecified; M48.00 Spinal stenosis, site unspecified; M10.9 Gout, unspecified; Z95.5 Presence of coronary angioplasty implant and graft; Z93.3 Colostomy status; Z98.890 Other specified postprocedural states; Z88.8 Allergy status to other drugs, medicaments and biological substances; Z79.52 Long term (current) use of systemic steroids; Z79.899 Other long term (current) drug therapy
CPT/HCPCS: 36415; 71045; 80048; 80053; 80202; 82533; 82728; 83735; 83880; 83930; 83935; 84443; 84484; 84550; 85025; 85610; 93005; 93010; 93970; 94640; 94667; 94668; 94760; 96375; 96376; 97116; 97162; 97530; A9270; G0378; J0690; J1650; J1940; J2270; J3370; J3480; J7040; J7050; J7060; U0003